=== PATIENT | female | born 1990 ===

== ENCOUNTER 2025-01-08 08:28 | Outpatient (AMB) | payer OTHER, SELFPAY ==
--- OUTSIDE RECORDS SUMMARY | 2025-01-08 08:32 | XMS_ITS | Clinical Summary ---
Author Organization [facility] Address [address] [place] [address] Phone Care Team Providers Care Nut Roaster Name Role Phone Vivek Sams MD Primary Care Provider [phone] Allergies No known active allergies Medications ALBUTEROL SULFATE INHL Inhale 2 Puffs into the lungs as needed. Active azelastine (ASTELIN) 137 mcg (0.1 %) nasal spray 2 Sprays by Each Nare route 2 times daily. Use in each nostril as directed Active etonogestrel-elut ing contraceptive device (Nexplanon) 68 mg implant subdermal implant Inject 68 mg into the skin Once. 4 Active fluticasone propionate (FLONASE) 50 mcg/actuation nasal spray 2 Sprays by Each Nare route daily for 360 days. 3 Active loratadine (CLARITIN) 10 mg tablet Take 1 tablet (10 mg total) by mouth 1 (one) time each day. 3 Active SUMAtriptan (IMITREX) 50 mg tablet Take 1 tablet (50 mg total) by mouth 1 (one) time each day if needed for migraine. May repeat dose once in 2 hours if no relief. Do not exceed 2 doses in 24 hours. 9 tablet 1 5 08/10/19 26 Active Symbicort 160-4.5 mcg/actuation inhaler Inhale 2 puffs by mouth 2 (two) times a day. 5 Active phentermine 30 mg capsule Take 1 capsule (30 mg total) by mouth 1 (one) time each day before breakfast. Max Daily Amount: 30 mg 30 each 5 01/12/20 25 Active phentermine 30 mg capsule Take 1 capsule (30 mg total) by mouth 1 (one) time each day before breakfast. Max Daily Amount: 30 mg 30 each 5 12/13/19 25 Discontin ued(Reord er) Active Problems Problem Noted Date Diagnosed Date Morbid obesity with BMI of 4 0.0-44.9, adult ([facility] V24, [facility] V28) 05/18/[address] 03/17/2024 Overview (05/18/2024): Inserted 02/2024 Flat feet, bilateral 03/20/2020 Encounters Date Type Department Care Team Description 12/12/2024 9:00 AM EDT [facility] [phone] Vivek Sams MD Class 3 severe obesity due to excess calories without serious comorbidity with body mass index (BMI) of 45.0 to 49.9 in adult ([facility] V24, [facility] V28) (Primary Dx) 11/03/2024 8:45 AM EDT Office Visit Internal Medicine - [address] [phone] Vivek Sams MD Encounter for weight management (Primary Dx); Morbid obesity with BMI of 40.0-44.9, adult ([facility] V24, [facility] V28) 10/11/2024 Telephone Pediatrics - [address] [phone] Vivek Sams MD Forms/questionnaires (Physician Statement) from Last 3 Months Immunizations Name Administration Dates Next Due DTP 10/11/1995, 4,11/09/1993,1990 [id number] (Pentacel) 2mo to less than 5yo 01/09/1994,11/09/1993,1990 Hepatitis B Pediatric (Enger ix B; Recombivax HB) to less than 20 yo 02/20/2000,07/25/1999,06/24/1999 MMR, measles mumps and rubel la Live (Priorix; M-M-R II) 12mo and older 10/11/1995,09/10/1991 OPV 10/11/1995, 4,11/09/1993,1990 Pneumococcal conjugate 20 va lent (Prevnar 20, PCV 20) 2mo and older 08/15/2024 Td Tetanus diptheria (Tdvax) 7yo and older 04/07/2001 Tdap Tetanus diptheria acell ular pertussis (Boostrix; Adacel) 7yo and older 02/20/2016,12/08/2011 Varicella live (Varivax) 12m o and older 02/09/1991 Surgical History Surgery Date Site/Laterality Comments OTHER SURGICAL HISTORY 2021 Bilateral PROCEDURE: [place] DECOMPRESSION PLANTAR DIGITAL NERVE; COMMENT: 10/03/2021 (Left); 01/22/2022 (right) Medical History Medical History Date Comments BRCA negative 08/2020 DX:BRCA negative Flat feet, bilateral 03/20/2020 DX:Flat fee t, bilateral Family History Medical History Relation Name Comments No Known Problems Daughter Diabetes Father Heart failure Father Other: gout Father Breast cancer Paternal Grandfather Asthma Son 1 No Known Problems Son 2 Lung cancer Uncle paternal Relation Name Status Comments Daughter Alive Father Paternal Grandfather Son 1 Son 2 Alive Uncle Social History Tobacco Use Types Packs/Day Years Used Date Smoking Tobacco: Never Smokeless Tobacco: Never Tobacco Cessation:Counseling Given: Not Answered Alcohol Use Standard Drinks/Week Comments No 0 (1 standard drink = 0.6 oz pur e alcohol) Housing Instability Answer Date Recorde d Are you worried that in the next 2 months you may not have stable housing? Yes 08/11/2024 Food Access & Nutrition Answer Date Rec orded Do you have access to a vari ety of food including fruits and vegetables? Yes 08/11/2024 Access to Healthcare Answer Date Record ed Within the last 3 months, ho w many times did you visit the emergency department for your medical care? 0 08/11/2024 Health Literacy Answer Date Recorded How often do you need to hav e someone help you when you read instructions, pamphlets, or other written material from your doctor or pharmacy? Never 08/11/2024 Caregiver: How often do you need to have someone help you when you read instructions, pamphlets, or other written material from your doctor or pharmacy? Not on file 08/11/2024 Financial Risk Answer Date Recorded How hard is it for you to pa y for the very basics like food, housing, medical care, and air conditioning / heating? Somewhat hard 08/11/2024 Transportation Answer Date Recorded Has the lack of transportati on kept you from meetings, work, or from getting things needed for daily living? No Has the lack of transportati on kept you from medical appointments or from getting medications? No 08/11/2024 Social Isolation Answer Date Recorded How often do you feel lonely or isolated from th ose around you? Rarely 08/11/2024 Food Risk Answer Date Recorded Within the past 12 months we worried whether our food would run out before we got money to buy more. Never true 08/11/2024 Within the past 12 months th e food we bought just didn't last and we didn't have money to get more. Never true 08/11/2024 Dependent Care Answer Date Recorded Do you need help finding or paying for care for your loved ones. For example, child protective services social worker or elderly care for an older adult? No 08/11/2024 Education Answer Date Recorded Do you think completing more education or training, like finishing a GED, going to college, or learning a trade, would be helpful for you? Patient declined 08/11/2024 Employment and Income Answer Date Recor ded During the last four weeks, have you been actively looking for work? No 08/11/2024 Living Situation Answer Date Recorded What is your living situation? 0 08/11/2024 Comments No Sex and Gender Information Value Date Recorded Sex Assigned at Female 07/06/2024 1:24 PM EST Legal Sex Female 5:00 AM EST Gender Identity Female 07/06/2024 1:24 PM EST Sexual Orientation Not on file Obstetrics History Last Filed Vital Signs Vital Sign Reading Time Taken Comments Blood Pressure 130/81 12/12/2024 9:16 AM EDT Pulse 88 12/12/2024 9:16 AM EDT Temperature - - Respiratory Rate - - Oxygen Saturation - - Inhaled Oxygen Concentration - - Weight 123 kg (270 lb 14.4 oz) 12/12/2024 9:16 A M EDT Height 165.1 cm (5' 5 ) 12/12/2024 9:16 AM EDT Body Mass Index 45.08 12/12/2024 9:16 AM EDT Plan of Treatment Upcoming Encounters Date Type Department Care Team (Late st Contact Info) Description 01/10/2025 8:30 AM EDT Office Visit Internal Medicine - [facility] [address] [place] [phone] Vivek Sams MD [address] [place] [address] Health Maintenance Due Date Last Done Comments Depression Screening 08/11/2025 08/11/2024 Social Influencers of Health Screening 08/11/2025 08/11/2024 DTaP,Tdap,and Td Vaccines (8 - Td or Tdap) 02/19/2026 02/20/2016, 12/08/2011, 04/07/2001, Additional history exists Cervical Cancer Screening: HPV 02/24/2029 02/25/2024 Cholesterol Screening (Lipid Panel) 08/15/2029 08/15/2024, 12/31/2021 Varicella Vaccines Aged Out 02/09/1991 No longer eligible based on patient's age to complete this topic HIB Vaccines Completed 01/09/1994, 10/26, 1990 IPV Vaccines Completed 10/11/1995, 12/26, 01/09/1994, Additional history exists MMR Vaccines Completed 10/11/1995, 09/10/1991 Hepatitis B Vaccines Completed 02/20/2000, 07/25/1999, 06/24/1999 COVID-19 Vaccine Discontinued 09/20/2020, 08/29/2020 HIV Screening Completed 08/15/2024, 01/28, 08/20/2015 Hepatitis C Screening Completed 08/15/2024, 024 Pneumococcal Vaccine: Pediatrics (0 to 5 Years) and At-Risk Patients (6 to 49 Years) Completed 08/15/2024 HPV Vaccines Aged Out No longer eligi ble based on patient's age to complete this topic Hepatitis A Vaccines Aged Out No long er eligible based on patient's age to complete this topic Influenza Vaccine Discontinued Meningococcal ACWY Vaccine Aged Out N o longer eligible based on patient's age to complete this topic Meningococcal B Vaccine Aged Out No l onger eligible based on patient's age to complete this topic RSV Immunization Patients Under 20 months Aged Out No longer eligible based on patient's age to complete this topic Procedures Procedure Name Priority Date/Time Associated Diagnosis Comments HEPATITIS PANEL, ACUTE WITH REFLEX TO CONFIRMATION Routine 08/15/2024 1:13 PM EST Screen for STD (sexually transmitted disease) HIV 1, 2 ANTIBODY, P24 ANTIGEN WITH REFLEX TO DIFFERENTIATION Routine 08/15/2024 1:13 PM EST Screen for STD (sexually transmitted disease) LIPID PANEL WITH REFLEX TO DIRECT LDL Routine 08/15/2024 1:13 PM EST Morbid obesity with BMI of 40.0-44.9, adult (CMS/HCC V24, CMS/HCC V28) HM HPV Routine 02/25/2024 from Last 3 Months or Most Recently Relevant to Health Maintenance Results * HIV 1,2 antibody, p24 antigen with reflex to differentiation (08/15/2024 1:13 PM EST) HIV Combo AB/AG Negative Negative LAB CHEMISTRY METHOD 08/15/2024 5:57 PM EST [facility] Blood Venous blood specimen / Unknown Venipuncture / Unknown 08/15/2024 1:13 PM EST 08/15/2024 1:13 PM EST Narrative [facility] - 08/15/2024 5:57 PM EST This assay is a 4th generation assay allowing for earlier detection of HIV infection by detecting the presence of the HIV-1 p24 antigen as well as the traditional antibodies to HIV type 1 (including group O) and type 2. Use of a 4th generation assay is the current CDC recommendation for HIV screening. Vivek Sams MD LAB BLOOD ORDERABLES Final Resu lt [facility] [address] [place] [address], [place] [phone] * Lipid panel with reflex to direct LDL (08/15/2024 1:13 PM EST) Cholesterol 149 0 - 200 mg/dL LAB CHEMISTRY METHOD 08/15/2024 5:09 PM EST [facility] Triglycerides 110 0 - 150 mg/dL LAB CHEMISTRY METHOD 08/15/2024 5:09 PM EST [facility] HDL 41 >=40 mg/dL LAB CHEMISTRY METHOD 08/15/2024 5:09 PM [facility] LDL Calculated 86 0 - 100 mg/dL LAB CHEMISTRY METHOD 08/15/2024 5:09 PM [facility] VLDL Cholesterol Bull 22 mg/dL LAB CHEMISTRY METHOD 08/15/2024 5:09 PM [facility] Non HDL Chol. (LDL+VLDL) 108 <145 mg/dL LAB CHEMISTRY METHOD 08/15/2024 5:09 PM [facility] Chol/HDL Ratio 3.6 0.0 - 4.4 LAB CHEMISTRY METHOD 08/15/2024 5:09 PM [facility] Blood Venous blood specimen / Unknown Venipuncture / Unknown 08/15/2024 1:13 PM EST 08/15/2024 1:13 PM EST Vivek Sams MD LAB BLOOD ORDERABLES Final Resu lt Performing Organization Address [facility]/ZIP Co de Phone Number [facility] [address] [place] [address], [place] [phone] * Hepatitis panel, acute with reflex to confirmation (08/15/2024 1:13 PM EST) Hepatitis B Surface Ag Negative Negative LAB CHEMISTRY METHOD 08/15/2024 6:40 PM EST [facility] Hepatitis A Antibody IgM Negative Negative LAB CHEMISTRY METHOD 08/15/2024 6:40 PM EST [facility] Hep B Core IgM Negative Negative LAB CHEMISTRY METHOD 08/15/2024 6:40 PM EST [facility] Hepatitis C Antibody Negative Negative LAB CHEMISTRY METHOD 08/15/2024 6:40 PM EST [facility] Blood Venous blood specimen / Unknown Venipuncture / Unknown 08/15/2024 1:13 PM EST 08/15/2024 1:13 PM EST Vivek Sams MD LAB BLOOD ORDERABLES Final Resu lt [facility] [address] [place] [address], * Cervical Cancer Screening: HPV (02/25/2024) Pathologist [facility] Cervical Cancer Screening: HPV negative, abstracted Historical Provider HEALTH MAINTENANCE Final Result from Last 3 Months or Most Recently Relevant to Health Maintenance Insurance [facility] [employer] Care Teams Nut Roaster Relationship Specialty Start Date End Date Vivek Sams MD [address] [place] [phone] PCP - General 08/06/22
--- NOTE | 2025-01-08 09:13 | MHC.OFFVISWM ---
VS Expanded 01/08/25 09:22 Height 5 ft 5 in Weight 262 lb 7 oz BMI 43.7 Body Fat % 42.9 Body Fat Mass 112.6 Fat Free Mass 150 Visceral Fat Rating 12 Body Water Mass 107.4 Basal Metabolic Rate/Score 2,118 Intake Visit Reasons: [employer] BMI 43.7 Allergies No Known Allergies Allergy (Verified 01/08/25 09:13) Medication List - Last Reconciled 01/08/25 by Papito Hernandez MD albuterol sulfate 90 mcg/actuation (Ventolin HFA) 2 puffs inhalation Q6H PRN budesonide-formoterol 160-4.5 mcg/actuation (Symbicort) 2 puffs inhalation BID clotrimazole 2% (Clotrimazole-3) 2 appful vaginal BEDTIME levocetirizine 5 mg PO QPM PRN phentermine 30 mg PO DAILY sumatriptan succinate 50 mg PO Q2-4H PRN HPI HPI [employer] BMI 43.7: Details: Start time: 9.06am, End time: 10.06am I spent 50 minutes speaking with the patient on the phone plus an additional 10 minutes reviewing and updating records for a total of 60 minutes HPI Comments Details: Previous weight loss efforts: has been on Phentermine max dose of 37.5mg/d for 3 months without any weight loss and side effects of nausea and dizziness Wakes up: 5.45am, Sleeps: 10pm Breakfast: skips Lunch: 2pm (watermelon, berries, and salad with chicken), or premade Premier protein shake Dinner: 7.30pm (chicken with vegetable, rice/potatoes) Snacks: none Exercise: none Beverages: Coffee/Tea: none, soda: rarely, juice: rarely, ETOH: 3-4/year [facility] Medical History (Updated 01/08/25 @ 09:18 by Papito Hernandez MD) Migraines Asthma Morbid obesity Surgical History (Updated 01/08/25 @ 09:18 by Papito Hernandez MD) S/P foot surgery, right S/P foot surgery, left Family History (Updated 12/15/24 @ 09:28 by Margie Faye CMA) Mother No problems noted. Father Heart failure Gout Son No problems noted. Son Asthma Chronic headaches Daughter ADHD Epilepsy Social History (Updated 12/15/24 @ 09:28 by Margie Faye CMA) Alcohol intake: current Alcohol intake frequency: holidays/special occasions only Patient Tobacco Use Status: Never used Tobacco Telehealth Telehealth Telehealth Platform: Telephone Location of provider rendering services: practice address Location of patient: address on file Patient Identification confirmed using: Name, : Yes Telehealth method: voice only Patient verbally consented to treatment: Yes Patient verbally consented to billing insurance company: Yes Patient informed of any privacy concerns related to visit: Yes Minutes spent on Phone/Video with Pt.: 60 Assessment & Plan Assessment & Plan (1) Morbid obesity: Code(s): E66.01 - Morbid (severe) obesity due to excess calories Category: Medical Plan: 1. Plan for lap sleeve gastrectomy. If diaphragmatic or ventral hernias are present at time of surgery, these will be repaired laparoscopically as well. I emphasized the importance of close follow-up, adherence to instructions and good communication. The surgery does not replace the need to change your lifestlyle which is the cause of the obesity problem. The surgery provides the motivation to try again to change your lifestyle, it reduces the appetite and make the transition to a better lifestyle easier and doubles the amount of weight you would lose compared to doing the lifestyle change without the surgery. You will need to be on a liquid diet with protein shakes for 2 weeks before surgery to maximize weight loss and boost your nutritional status to recover better from surgery and also for the first two weeks after surgery to let the stomach heal before we introduce other foods. After the first 2 weeks we will introduce protein bars and soft foods like scrambled eggs, cottage cheese and yogurt and after the 6th week will introduce meat, fish and cooked vegetables in small amounts. Over time you should be able to eat everything in small amounts. Side effects like nausea, vomiting, heartburn or abdominal pain are not common in the practice unless you are not following in the practice. This operation requires lifetime commitment to following in our practice and communication with me. You will much less weight and experience side effects if you don?t communicate or not following in the practice. Complications are rare and in our practice is about 1/10 of the national average. However, you can develop bleeding that may require transfusion (hasn?t happened for year in the practice), you may from complications (we did not have any deaths in the practice) and infections. Infections are usually a result of breakdown in communication or not understanding or following directions correctly. They are difficult to treat, they can happen during the first 6 weeks, they may require to be in the hospital for weeks or even months, not being able to eat by mouth and you may have drains and surgeries to try and correct the issue. Other risks and complications include possible conversion to an open procedure, leaks, small bowel obstruction, blood clots, cardiac, or pulmonary complications, as shelter complications such as ulcers, insufficient weight loss and vitamin deficiencies. 2. Nutritional counseling. Start with 1 premade Premier protein shake (ONLY 8oz and NOT the whole bottle) at 7am-9am, 2 protein bars (Fit Crunch protein bars, buy at [employer] or [employer]) at 10am-12pm and 1pm-3pm, one more 1 premade Premier protein shake (ONLY 8oz and NOT the whole bottle) at 4pm-6pm and dinner at 7pm (8 forks of protein and 8 forks of salad/vegetables) and HALF Fit Crunch protein bar, if you feel hungry, from 9pm-10pm. So you do 2 protein shakes, 2-2.5 protein bars and one meal per day. Meal to include lean meat (beef, fish, pork, turkey, chicken), or north korean yogurt, or egg whites, or beans with a salad with olive oil and fruits (berries, pears, apples, kiwi). Avoid salt, breads, potatoes, rice, pasta, desserts. 3. Each shake would be drunk slowly, like coffee in a period of 2 hours. 4. Cut each bar in 4 pieces and eat each piece in 30min to make each bar last 2 hours. 5. I emphasized the importance of measuring accurately the food portion and measure it when serving the food in plate 6. The meal portions include 8 full-size forks of meat and 8 full-size forks of salad. You always eat the meat portion but you can replace up to 4 forks for salad/vegetables with rice, potatoes or pasta, or a fruit if you like. The less you do it the better weight loss will be. 7. One full-size fork is what it can be scooped on the fork without falling aside and not what can be bit with the fork. Use regular forks like those you find in a typical restaurant. 8. Please buy the body composition scale we discussed and send me weight measurements as soon as possible and then once a week. Always include your diet and exercise plan. 9. Start stationary bike at a resistance level of 4.0 Increase level by 1.0 every 3 min to a max level of 10.0. Stay at this level for 3 min and then return to level 4.0 and repeat same steps until 300 calories are burned. Velocity target is 12mph and heart rate is 145 bpm. Goal is to burn 2000 calories per week on exercise 10. The best choice would be to purchase a stationary bike at home that can track calories. Let me know if you do so I can give you an exercise plan. 11. It is important of avoiding and for at least 18 months postoperatively and has been discussed at the infosession. 12. Goal is to lose at least 1.5-2lbs per week 13. Goal to lose 10% of your weight before surgery, which is about 26lbs. Ultimate weight goal: 236lbs before surgery 14. Please follow the diet plan exactly without any change. If you don't like something about the plan or you feel hungry you need to communicate with me so I can help you revise the plan. You should not change the plan yourself 15. To be scheduled for EGD to assess the stomach's anatomy. The possibility of biopsies was discussed. Patient needs to avoid use of NSAIDs and aspirin for 1 week prior to EGD. You must be on liquids only the day before your endoscopy. Risks of perforation and bleeding was discussed with the patient. This will be an outpatient procedure with IV sedation. 16. As of tomorrow, please send me a picture of your meal plate after you measure it, but before you consume it. 17. Start the Zepbound when you get your body composition scale once a week. Use a calorie-counting karan to track your daily calories to create a calorie deficit with a target of consuming 3682-5934 calories per day. We discussed the potential side effects of Zepbound such as nausea, vomiting, abdominal pain, diarrhea and constipation and you will need to contact me if any of these symptoms occur or for any other new symptom you may experience Orders: Orders Hemoglobin A1c Today E66.01 - Morbid (severe) obesity due to excess calories, J45.909 - Unspecified asthma, uncomplicated Complete Blood Count Auto Diff Today E66.01 - Morbid (severe) obesity due to excess calories, J45.909 - Unspecified asthma, uncomplicated Lipid Panel Today E66.01 - Morbid (severe) obesity due to excess calories, J45.909 - Unspecified asthma, uncomplicated IRON PROFILE Today E66.01 - Morbid (severe) obesity due to excess calories, J45.909 - Unspecified asthma, uncomplicated Zinc Today E66.01 - Morbid (severe) obesity due to excess calories, J45.909 - Unspecified asthma, uncomplicated C Reactive Protein Today E66.01 - Morbid (severe) obesity due to excess calories, J45.909 - Unspecified asthma, uncomplicated Vitamin B1 Today E66.01 - Morbid (severe) obesity due to excess calories, J45.909 - Unspecified asthma, uncomplicated Vitamin A Today E66.01 - Morbid (severe) obesity due to excess calories, J45.909 - Unspecified asthma, uncomplicated TSH reflex Free T4 Today E66.01 - Morbid (severe) obesity due to excess calories, J45.909 - Unspecified asthma, uncomplicated Ferritin Today E66.01 - Morbid (severe) obesity due to excess calories, J45.909 - Unspecified asthma, uncomplicated Vitamin D 25-OH Total Today E66.01 - Morbid (severe) obesity due to excess calories, J45.909 - Unspecified asthma, uncomplicated XR chest 2V Today E66.01 - Morbid (severe) obesity due to excess calories, J45.909 - Unspecified asthma, uncomplicated Insulin Today E66.01 - Morbid (severe) obesity due to excess calories, J45.909 - Unspecified asthma, uncomplicated H Pylori Breath Test Today E66.01 - Morbid (severe) obesity due to excess calories, J45.909 - Unspecified asthma, uncomplicated Comprehensive Met. Panel Today E66.01 - Morbid (severe) obesity due to excess calories, J45.909 - Unspecified asthma, uncomplicated Vitamin B12 and Folate Today E66.01 - Morbid (severe) obesity due to excess calories, J45.909 - Unspecified asthma, uncomplicated US abdomen comp w elastography Today E66.01 - Morbid (severe) obesity due to excess calories, J45.909 - Unspecified asthma, uncomplicated ECG 12 lead EKG Today E66.01 - Morbid (severe) obesity due to excess calories, J45.909 - Unspecified asthma, uncomplicated FL upper GI w air Today E66.01 - Morbid (severe) obesity due to excess calories, J45.909 - Unspecified asthma, uncomplicated Referrals Nutrition/Dietitian Referral E66.01 - Morbid (severe) obesity due to excess calories, J45.909 - Unspecified asthma, uncomplicated Behavioral Health Referral E66.01 - Morbid (severe) obesity due to excess calories, J45.909 - Unspecified asthma, uncomplicated Medications: New tirzepatide (weight loss) (Zepbound) for 4 weeks 2.5 mg (0.5 mL) subcut QWEEK 2 mL 0RF E66.01 - Morbid (severe) obesity due to excess calories
[2025-01-08 09:22] VITALS: BMI 43.7
== END 2025-01-08 10:07 | disposition home or self-care (01) ==
LOC: HO.HBS 08:28
PROVIDERS: PCP Internal Medicine; Visit Provider Surgery
DX: E66.01 Morbid (severe) obesity due to excess calories (principal); Z68.41 Body mass index [BMI] 40.0-44.9, adult
CPT/HCPCS: 98011

== ENCOUNTER 2025-01-12 08:13 | Outpatient (REF) | payer OTHER, SELFPAY ==
--- OUTSIDE RECORDS SUMMARY | 2025-01-10 08:30 | XMS_ITS | Encounter Summary ---
Author Organization [facility] Address [address] [place] [address] Care Team Providers Care Photograph Printer Name Role Phone Vivek Sams MD Primary Care Provider [phone] Reason for Visit * Reason Comments Wt management Encounter Details Date Type Department Care Team (Late st Contact Info) Description 01/10/2025 8:30 AM EDT Office Visit [facility] Medicine - [facility] [address] [place] [address] Vivek Sams MD [address] [place] [address] Encounter for weight management (Primary Dx); Class 3 severe obesity due to excess calories without serious comorbidity with body mass index (BMI) of 40.0 to 44.9 in adult (CMS/HCC V24, CMS/HCC V28) Social History Tobacco Use Types Packs/Day Years [...] care for your loved ones. For example, summer child caregiver or elderly care for an older adult? [...] PM EST Sexual Orientation Not on file documented as of this encounter Last Filed Vital Signs Vital Sign Reading Time Taken Comments Blood Pressure 114/88 01/10/2025 8:08 AM EDT Pulse 83 01/10/2025 8:08 AM EDT Temperature - - Respiratory Rate - - Oxygen Saturation - - Inhaled Oxygen Concentration - - Weight 116 kg (254 lb 12.8 oz) 01/10/2025 8:08 A M EDT Height 165.1 cm (5' 5 ) 01/10/2025 8:08 AM EDT Body Mass Index 42.4 01/10/2025 8:08 AM EDT documented in this encounter Ordered Prescriptions Prescription Sig Dispense Quantity Refills Last Filled Start Date End Date phentermine 30 mg capsule Take 1 capsule (30 mg total) by mouth 1 (one) time each day before breakfast. Max Daily Amount: 30 mg 30 each 01/10/2025 documented in this encounter Progress Notes * Vivek Sams MD - 01/10/2025 8:30 AM EDT CHIEF COMPLAINT: Wt management IDENTIFIER: Franklyn Mack is a 34 y.o. old female who comes alone. I have obtained verbal consent from Franklyn Mack prior to the recording. I have advised Franklyn Mack that she may refuse the recording and require the recording to be turned off at any time during this encounter. History of Present Illness The patient presents for a 4-week follow-up on weight management. She has been on phentermine 30 mg daily for 3 months, well-tolerated. Significant weight loss from 270 to 254 pounds. Recently consulted a weight environmental management specialist, awaiting appointment scheduling. Reports mild dizziness, dry mouth, and sleep disturbances, including a surge of energy around 7:30-8:00 PM despite taking medication at 6:00 AM. Seeks medication refill. ROS: GENERAL: No malaise, significant weight loss or fever HEENT: No changes in hearing or vision, nose bleeds or other nasal problems RESPIRATORY: No cough, wheezing or shortness of breath CARDIOVASCULAR: No chest pain, leg swelling or palpitations GI: No abdominal discomfort, blood in stools or black stools NECK: No lumps, goiter, pain or significant neck swelling : No dysuria, frequency or incontinence MUSCULOSKELETAL: No joint pain or swelling, back pain, or muscle pain. SKIN: No lesions, rash or itching NEURO: No persistent headache, syncope, seizures, weakness or numbness PAST MEDICAL HISTORY: Patient Active Problem List Diagnosis Date Noted Morbid obesity with BMI of 40.0-44.9, adult ([facility] V24, [facility] V28) 05/18/[address] 03/17/2024 Flat feet, bilateral 03/20/2020 ACTIVE MEDICATIONS: Outpatient Medications Marked as Taking for the 01/10/25 encounter (Office Visit) with Vivek Sams MD Medication Sig Dispense Refill ALBUTEROL SULFATE INHL Inhale 2 Puffs into the lungs as needed. azelastine (ASTELIN) 137 mcg (0.1 %) nasal spray 2 Sprays by Each Nare route 2 times daily. Use in each nostril as directed etonogestrel-eluting contraceptive device (Nexplanon) 68 mg implant subdermal implant Inject 68 mg into the skin Once. fluticasone propionate (FLONASE) 50 mcg/actuation nasal spray 2 Sprays by Each Nare route daily [id number] days. loratadine (CLARITIN) 10 mg tablet Take 1 tablet (10 mg total) by mouth 1 (one) time each day. phentermine 30 mg capsule Take 1 capsule (30 mg total) by mouth 1 (one) time each day before breakfast. Max Daily Amount: 30 mg 30 each 0 SUMAtriptan (IMITREX) 50 mg tablet Take 1 tablet (50 mg total) by mouth 1 (one) time each day if needed for migraine. May repeat dose once in 2 hours if no relief. Do not exceed 2 doses in 24 hours. 9 tablet 1 Symbicort 160-4.5 mcg/actuation inhaler Inhale 2 puffs by mouth 2 (two) times a day. [DISCONTINUED] phentermine 30 mg capsule Take 1 capsule (30 mg total) by mouth 1 (one) time each day before breakfast. Max Daily Amount: 30 mg 30 each 0 ALLERGIES: Patient has no known allergies. PHYSICAL EXAM: Visit Vitals BP 114/88 Pulse 83 Ht 1.651 m (65 ) Wt 116 kg (254 lb 12.8 oz) BMI 42.40 kg/m?? OB Status Implant Smoking Status Never BSA 2.2 m?? APPEARNCE: well appearing, awake, alert, in no acute distress EYES: PERRL, conjunctiva and sclera normal NOSE/SINUS: negative MOUTH/THROAT: no erythema or exudates NECK: Supple without any adenopathy HEART: regular rate, regular rhythm and no murmur RESPIRATORY: clear lungs bilaterally EXTREMITIES: No edema and Normal pulses bilaterally. NEURO: Awake, alert and oriented x 3, Normal gait and No involuntary motions. SKIN: No rashes or lesions. IMPRESSION: 1. Encounter for weight management 2. Class 3 severe obesity due to excess calories without serious comorbidity with body mass index (BMI) of 40.0 to 44.9 in adult ([facility] V24, [facility] V28) PLAN: Assessment & Plan 1. Weight management. - Significant weight loss from 270 to 254 pounds over the past month. - Physical exam: stable blood pressure; side effects: dizziness, dry mouth, trouble sleeping. - Continue phentermine 30 mg daily for 3 months, pending weight management consult. - Prescription for phentermine 30 mg sent to pharmacy; follow-up in 4 weeks. ADDITIONAL ORDERS: None Today's documentation was made using voice recognition software.This note may contain grammatical errors secondary to this software. MD Vivek Alonzo MD on 01/10/2025 at 8:32 AM EDT documented in this encounter Plan of Treatment Upcoming Encounters Date Type Department Care Team (Late st Contact Info) Description 02/15/2025 8:45 AM EDT [facility] [address] [place] [address] Vivek Sams MD [address] [place] [address] documented as of this encounter Visit Diagnoses Diagnosis Encounter for weight management- Primary Class 3 severe obesity due to excess calories without serious comorbidity with body mass index (BMI) of 40.0 to 44.9 in adult ([facility] V24, [facility] V28) documented in this encounter Discontinued Medications Medication Sig Discontinue Reason Start Date End Da te phentermine 30 mg capsule Take 1 capsule (30 mg total) by mouth 1 (one) time each day before breakfast. Max Daily Amount: 30 mg Reorder 12/12/2024 01/10/2025 documented as of this encounter Additional Health Concerns Assessment Noted Time PHQ-9 Depression Total Score: 0 08/11/19 25 6:57 PM EST documented as of this encounter Care Teams Photograph Printer Relationship Specialty Start Date End Date Vivek Sams MD [address] [place] [address] PCP - General 08/06/22 documented as of this encounter
--- NOTE | ~2025-01-12 | XR_ITS ---
EXAMINATION: XR CHEST 2 VIEWS HISTORY: E66.01 - Morbid (severe) obesity due to excess calories COMPARISON: There are no prior studies available for comparison. FINDINGS: PA and lateral views of the chest are submitted. The lungs are expanded and clear. There is no pleural effusion, pneumothorax, or pulmonary vascular congestion. The heart is normal in size. The bones are intact. XR/XR chest 2V IMPRESSION: Normal examination of the chest. Electronically signed by: Jaden Kathleen MD 01/12/2025 08:57 AM EDT
--- OUTSIDE RECORDS SUMMARY | 2025-01-12 08:19 | XMS_ITS | Data Portability ---
Author Organization [facility], [address] Address [address] [place] [address] Assessment No assessment recorded. Plan of Treatment Reminders Order Date Submit Date Provider Last Modified By Organization Details Last Modified Time Details Appointments None record ed. Lab None record ed. Referral None record ed. Procedures None record ed. Surgeries None record ed. Imaging None record ed. Medication Orders None record ed. Patient TargetsNo targets recorded. Patient InstructionsNo instructions recorded. Reason for Referral None Reported. Procedures Surgical History Date Name Laterality Status Provider Name and Address Organization Details Recorded Time 3 OC-UDS Send Out Template NON DOT completed SHAMA TIFFANIE GARCIA [facility] 02/28/2023 16:59:59 Imaging Results None recorded. Procedure Notes None recorded. Medical Equipment None Reported. Medications Name Sig Start Date Stop Date Status Note LastModified by Organization Details LastModified Time aspirin 325 mg tablet TAKE 1 TABLET BY MOUTH DAILY FOR 60 DAYS. active Not Available Not Available No t Available meloxicam 15 mg tablet TAKE 1 TABLET BY MOUTH DAILY FOR 60 DAYS. active Not Available Not Available No t Available epinephrine 0.3 mg/0.3 mL injection, auto-injecto r INJECT 1 PEN INTRAMUSCUL TANYA NEEDED FOR ALLERGIC REACTION active Not Available Not Available No t Available fluticasone propionate 50 mcg/actuatio n nasal spray,suspen imtiaz SPRAY 2 SPRAYS IN EACH NOSTRIL EVERY DAY active Not Available Not Available No t Available loratadine 10 mg tablet TAKE 1 TABLET BY MOUTH EVERY DAY active Not Available Not Available No t Available Vitals None Recorded Social History None recorded. Functional Status None recorded. Mental Status None recorded. Family History Nothing Reported. Medical History No medical history recorded. Gynecological HistoryNo gynecological history recorded. Obstetrics History GPAL:G 0 P 0 0 0 0 Past Encounters Encounter ID Performer Location Encounter Start Date Encounter Closed Date Diagnosis/Indication Diagnosis SNOMED-CT Code Diagnosis ICD10 Code Diagnosis Note [id number] [address] [place] [address] 10/09/2018 08:23:46 10/09/2018 09:53:29 [id number] [address] [place] [address] 01/03/2021 09:10:48 01/03/2021 10:09:21 [id number] [place] [id number] [facility] [address] [place] [address] 02/28/2023 14:43:52 02/28/2023 15:44:10 History and physical examination, occupation 559139695 Z02.1 Health Concerns Section Related Observation LastModified by Organization Detai ls LastModified Time None Recorded Concern Status LastModified by Organization Details LastModified Time None Recorded Advance Directives Directive None Recorded Payers Insurance Date Sequence Insurance Name Policy Number Policy Sawant Covered Member ID Sawant Member ID Guarantor Name 02/27/2023 1 [facility] [employer] - HEALTH NET PLAN (MEDICAID HMO) DOMINGA Mack [id number] Franklyn Mack 02/28/2023 [employer] Franklyn Mack OBGyn Episode No OBEpisode recorded.
--- NOTE | 2025-01-12 08:21 | ECG_ITS ---
Test Reason : mor obs Blood Pressure : */* mmHG Vent. Rate : 72 BPM Atrial Rate : 72 BPM P-R Int : 124 ms QRS Dur : 92 ms QT Int : 368 ms P-R-T Axes : 25 29 50 degrees QTcB Int : 402 ms Normal sinus rhythm Normal ECG No previous ECGs available Referred By: Papito Hernandez Electronically Signed By: MICHELLE OVERTON
[2025-01-12 08:48] LABS: MANUAL DIFF FLAG NO
[2025-01-12 09:14] LABS: Hematocrit 37.3 % (37.0-47.0); Hemoglobin 12.9 g/dl (12.0-16.0); Imm Gran Abs Auto 0.02 X10*3/uL (0.00-0.03); Imm Gran Pct Auto 0.3 % (0.0-0.4); Lymphocytes Absolute Auto 2.1 X10*3/uL (1.2-4.9); Mean Corpuscular HGB Conc 34.6 g/dl (31.0-35.0); Mean Corpuscular Hemoglobin 24.9 pg (27.0-33.0); Mean Corpuscular Volume 72.0 fL (80.0-98.0); NRBC Abs Auto 0.000 X10*3/uL (0.0-0.012); NRBC Pct Auto 0.0 /100WBC (0.0-0.2); Platelet Count 329 X10*3/uL (160-400); Red Blood Count 5.18 X10*6/uL (4.20-5.50); White Blood Count 7.3 X10*3/uL (4.8-10.8)
[2025-01-12 09:26] LABS: Hemoglobin A1C 110.2021 umol/L; Total Hemoglobin (HGBA1C) 3387.8360 umol/L
[2025-01-12 09:48] LABS: Alanine Aminotransferase 22 U/L (0-31); Albumin Level 4.4 g/dL (3.5-5.0); Alkaline Phosphatase 80 U/L (39-117); Anion Gap 11 (12-20); Aspartate Amino Transferase 22 U/L (5-31); Blood Urea Nitrogen 14 mg/dL (9-16); Calcium 9.2 mg/dL (8.4-10.2); Carbon Dioxide 26 mmol/L (22-29); Chloride 108 mmol/L (96-108); Cholesterol 149 mg/dL (<200); Estimated Glomerular Filt Rate > 60; HDL Cholesterol 37 mg/dL (>40); Iron 76 mcg/dL (30-160); Percent Iron Saturation 30 % (15-50); Potassium 4.1 mmol/L (3.3-5.1); Sodium 141 mmol/L (135-145); Total Iron Binding Capacity 255 mcg/dL (228-428); Total Protein 7.8 g/dL (6.5-8.0); Triglycerides 65 mg/dL (<150); Unsaturated Iron Binding 179 ug/dL
[2025-01-12 10:09] LABS: Ferritin 27 ng/mL (10-122); Folate 11.4 ng/mL (> or = 4.0); Vitamin B12 677 pg/mL (200-900)
== END 2025-01-12 08:14 | disposition home or self-care (01) ==
LOC: HO.XRAY 08:13
PROVIDERS: PCP Internal Medicine Hematology & Oncology; Visit Provider Surgery
DX: E66.01 Morbid (severe) obesity due to excess calories (principal); J45.909 Unspecified asthma, uncomplicated
CPT/HCPCS: 36415; 71046; 80053; 80061; 82306; 82607; 82728; 82746; 83036; 83525; 83540; 84425; 84443; 84590; 84630; 85025; 86140; 93005

== ENCOUNTER → 2025-01-12 08:21 | Outpatient (BNV) | payer OTHER, SELFPAY | PROVIDERS: PCP Internal Medicine Hematology & Oncology; Visit Provider Internal Medicine | DX: E66.01 Morbid (severe) obesity due to excess calories (principal) | CPT/HCPCS: 93010 ==

== ENCOUNTER → 2025-01-12 08:46 | Outpatient (BNV) | payer OTHER, SELFPAY | PROVIDERS: PCP Internal Medicine Hematology & Oncology; Visit Provider Radiology Diagnostic Radiology | DX: E66.01 Morbid (severe) obesity due to excess calories (principal) | CPT/HCPCS: 71046 ==

== ENCOUNTER 2025-02-02 14:51 | Day surgery (SDC) | payer OTHER, SELFPAY ==
--- OUTSIDE RECORDS SUMMARY | 2025-01-17 13:13 | XMS_ITS ---
Author Name [facility] Organization Unknown Care Team Organization Name Specialty Phone Email Start Date End Da te [facility] Vivek Sams Primary Care 11/02/20222023 [facility] CRISTIAN SORTO Primary Care 05/05/2022 02/14/20 24
--- OUTSIDE RECORDS SUMMARY | 2025-01-17 13:13 | XMS_ITS | Data Portability ---
Author Organization [facility], [address] Address [address] [place] [address] Assessment No assessment recorded. Plan of Treatment [...] Template NON DOT completed SHAMA TIFFANIE GARCIA [employer] 02/28/2023 16:59:59 Imaging Results None recorded. Procedure [...] SNOMED-CT Code Diagnosis ICD10 Code Diagnosis Note [id number] [address] [place] [address] 10/09/2018 08:23:46 10/09/2018 09:53:29 [id number] [address] [place] [address] 01/03/2021 09:10:48 01/03/2021 10:09:21 [id number] GUSTAVO VILLA [place] [address] [place] [address] 02/28/2023 14:43:52 02/28/2023 15:44:10 History and physical examination, occupation [id number] Z02.1 Health Concerns Section Related Observation LastModified by Organization Detai ls LastModified Time None Recorded Concern Status LastModified by Organization Details LastModified Time None Recorded Advance Directives Directive None Recorded Payers Insurance Date Sequence Insurance Name Policy Number Policy Sawant Covered Member ID Sawant Member ID Guarantor Name 02/27/2023 1 [facility] [employer] - HEALTH NET PLAN (MEDICAID HMO) DOMINGA Mack [id number] Franklyn Mack 02/28/2023 OC-ESCREEN [employer]PONSE Franklyn Mack OBGyn Episode No OBEpisode recorded.
--- OUTSIDE RECORDS SUMMARY | 2025-01-17 13:13 | XMS_ITS | Clinical Summary ---
Author Organization [facility] Address [address] [place] [address] Phone Care Team Providers Care Bark Grinder Name Role Phone Vivek Sams MD Primary Care Provider [phone] Allergies No known active allergies Medications ALBUTEROL SULFATE INHL Inhale 2 Puffs into the lungs as needed. Active azelastine (ASTELIN) 137 mcg (0.1 %) nasal spray 2 Sprays by Each Nare route 2 times daily. Use in each nostril as directed Active etonogestrel-elu ting contraceptive device (Nexplanon) 68 mg implant subdermal implant Inject 68 mg into the skin Once. 03/17/20 24 Active fluticasone propionate (FLONASE) 50 mcg/actuation nasal spray 2 Sprays by Each Nare route daily for 360 days. 08/25/19 23 Active loratadine (CLARITIN) 10 mg tablet Take 1 tablet (10 mg total) by mouth 1 (one) time each day. 06/10/20 23 Active Symbicort 160-4.5 mcg/actuation inhaler Inhale 2 puffs by mouth 2 (two) times a day. 10/05/19 25 Active SUMAtriptan (IMITREX) 50 mg tablet TAKE 1 TABLET (50 MG TOTAL) BY MOUTH 1 (ONE) TIME EACH DAY NEEDED FOR MIGRAINE. MAY REPEAT DOSE ONCE IN 2 HOURS IF NO RELIEF. DO NOT EXCEED 2 DOSES IN 24 HOURS. 9 tablet 1 01/11/20 25 Active phentermine 30 mg capsule Take 1 capsule (30 mg total) by mouth 1 (one) time each day before breakfast. Max Daily Amount: 30 mg 30 each 01/11/20 25 025 Active SUMAtriptan (IMITREX) 50 mg tablet Take 1 tablet (50 mg total) by mouth 1 (one) time each day if needed for migraine. May repeat dose once in 2 hours if no relief. Do not exceed 2 doses in 24 hours. 9 tablet 1 08/15/19 25 025 Discontinued phentermine 30 mg capsule Take 1 capsule (30 mg total) by mouth 1 (one) time each day before breakfast. Max Daily Amount: 30 mg 30 each 12/13/19 25 025 Discontinued(Re order) Active Problems Problem Noted Date Diagnosed Date Morbid obesity with BMI of 4 0.0-44.9, adult [place] [facility] [place] 05/18/[address] 03/17/2024 Overview (05/18/2024): Inserted 02/2024 Flat feet, bilateral 03/20/2020 Encounters Date Type Department Care Team Description 01/10/2025 8:30 AM EDT Office Visit [facility] [address] [place] [address] Vivek Sams MD Encounter for weight management (Primary Dx); Class 3 severe obesity due to excess calories without serious comorbidity with body mass index (BMI) of 40.0 to 44.9 in adult [place] [place] [facility] [place] 12/12/2024 9:00 AM EDT Office Visit [facility] [address] [place] [address] Vivek Sams MD Class 3 severe obesity due to excess calories without serious comorbidity with body mass index (BMI) of 45.0 to 49.9 in adult [place] [place] [facility] [place] [place] (Primary Dx) 11/03/2024 8:45 AM EDT Office Visit [facility] [address] [place] [address] Vivek Sams MD Encounter for weight management (Primary Dx); Morbid obesity with BMI of 40.0-44.9, adult (CMS/HCC V24, [facility] V28) from Last 3 Months Immunizations Name Administration Dates Next Due DTP 10/11/1995, 4,11/09/1993,1990 PRxK-LDO-CWD (Pentacel) 2mo to less than 5yo 01/09/1994,11/09/1993,1990 [...] Comments OTHER SURGICAL HISTORY 2021 Bilateral PROCEDURE: [place] DECOMPRESSION PLANTAR DIGITAL NERVE; COMMENT: 10/03/2021 (Left); [...] care for your loved ones. For example, children counselor or elderly care for an older adult? [...] Mass Index 42.4 01/10/2025 8:08 AM EDT Plan of Treatment Upcoming Encounters Date Type Department Care Team (Late st Contact Info) Description 02/15/2025 8:45 AM EDT Office Visit Internal Medicine - [facility] [address] [place] [address] Vivek Sams MD [address] [place] [address] Health Maintenance Due Date Last Done Comments Social Influencers of Health Screening 08/11/2025 08/11/2024 [...] 07/25/1999, 06/24/1999 COVID-19 Vaccine Discontinued 09/20/2020, 08/29/2020 Depression Screening Completed 08/11/2024 HIV Screening Completed 08/15/2024, 01/28, 08/20/2015 Hepatitis [...] LAB CHEMISTRY METHOD 08/15/2024 5:57 PM EST [facility] Blood Venous blood specimen / Unknown Venipuncture / Unknown 08/15/2024 1:13 PM EST 08/15/2024 1:13 PM EST [facility] - 08/15/2024 5:57 PM EST This assay is a 4th generation assay allowing for earlier detection of HIV infection by detecting the presence of the HIV-1 p24 antigen as well as the traditional antibodies to HIV type 1 (including group O) and type 2. Use of a 4th generation assay is the current CDC recommendation for HIV screening. us Vivek Sams MD LAB BLOOD ORDERABLES Final Resu lt [facility] [address] [place] [address], [place] [phone] * Lipid panel with reflex to direct LDL (08/15/2024 1:13 PM EST) Cholesterol 149 0 - 200 mg/dL LAB CHEMISTRY METHOD 08/15/2024 5:09 PM [facility] Triglycerides 110 0 - 150 mg/dL LAB CHEMISTRY METHOD 08/15/2024 5:09 PM [facility] HDL 41 >=40 mg/dL LAB CHEMISTRY METHOD 08/15/2024 5:09 PM [facility] LDL Calculated 86 0 - 100 mg/dL LAB CHEMISTRY METHOD 08/15/2024 5:09 PM [facility] VLDL Cholesterol Bull 22 mg/dL LAB CHEMISTRY METHOD 08/15/2024 5:09 PM [facility] Non HDL Chol. (LDL+VLDL) 108 <145 mg/dL LAB CHEMISTRY METHOD 08/15/2024 5:09 PM [facility] Chol/HDL Ratio 3.6 0.0 - 4.4 LAB CHEMISTRY METHOD 08/15/2024 5:09 PM [facility] Blood Venous blood specimen / Unknown Venipuncture / Unknown 08/15/2024 1:13 PM EST 08/15/2024 1:13 PM EST Vivek Sams MD LAB BLOOD ORDERABLES Final Resu lt Performing Organization Address City/[facility]/ZIP Co de Phone Number [facility] [address] [place] [address], [place] [phone] * Hepatitis panel, acute with reflex to confirmation (08/15/2024 1:13 PM EST) Hepatitis B Surface Ag Negative Negative LAB CHEMISTRY METHOD 08/15/2024 6:40 PM EST [facility] Hepatitis A Antibody IgM Negative Negative LAB CHEMISTRY METHOD 08/15/2024 6:40 PM EST [facility] Hep B Core IgM Negative Negative LAB CHEMISTRY METHOD 08/15/2024 6:40 PM EST [facility] Hepatitis C Antibody Negative Negative LAB CHEMISTRY METHOD 08/15/2024 6:40 PM EST [facility] Blood Venous blood specimen / Unknown Venipuncture / Unknown 08/15/2024 1:13 PM EST 08/15/2024 1:13 PM EST Vivek Sams MD LAB BLOOD ORDERABLES Final Resu lt Performing Organization Address [facility]/ZIP Co de Phone Number [facility] [address] [place] [address], [place] [phone] * Cervical Cancer Screening: HPV (02/25/2024) Pathologist [facility] Cervical Cancer Screening: HPV negative, abstracted Historical Provider HEALTH MAINTENANCE Final Result from Last 3 Months or Most Recently Relevant to Health Maintenance Insurance [facility] Care Teams Bark Grinder Relationship Specialty Start Date End Date Vivek Sams MD [address] [place] [address] PCP - General 08/06/22
--- NOTE | 2025-01-31 14:42 | HO.ANESPROP2 ---
Documented by User: Alecia Capps NP 01/31/25 14:42 HPI - Anesthesia Eval Consult details Narrative: 34yo F for Upper Endoscopy Anesthesia Pre-Procedure Meds Is the patient on any of the following meds?: GLP1/DPP4 PMFSH Active Problems Active Problems: All Active Problems Migraines (Acute) Asthma (Acute) Morbid obesity (Acute) Past Medical History Medical History Migraines Asthma Morbid obesity Family History Family History Mother No problems noted. Father Heart failure Gout Son No problems noted. Son Asthma Chronic headaches Daughter ADHD Epilepsy Surgical History Surgical History S/P foot surgery, right S/P foot surgery, left Social History Social History Alcohol intake: current Alcohol intake frequency: holidays/special occasions only Patient Tobacco Use Status: Never used Tobacco Use of substances other than those prescribed or required for medical reasons: No Advance Directives: No Advance Directives Information Provided: Yes Patient : No Meds Allergies Allergy/AdvReac Type Severity Reaction Status Date / Time No Known Allergies Allergy Verified 01/15/25 08:54 Home Medications ?Medication ?Instructions ?Recorded ?Confirmed ?Last Taken ?Type albuterol sulfate 90 mcg/actuation 2 puff inhalation Q6H PRN 12/15/24 01/08/25 Unknown History aerosol inhaler (Ventolin HFA) budesonide-formoterol HFA 160 2 puff inhalation BID 12/15/24 01/08/25 Unknown History mcg-4.5 mcg/actuation aerosol inhaler (Symbicort) clotrimazole 2 % vaginal cream 2 appful vaginal BEDTIME 12/15/24 01/08/25 Unknown History (Clotrimazole-3) levocetirizine 5 mg tablet 5 mg PO QPM PRN 12/15/24 01/08/25 Unknown History phentermine 30 mg capsule 30 mg PO DAILY 12/15/24 01/08/25 Unknown History sumatriptan succinate 50 mg tablet 50 mg PO Q2-4H PRN 12/15/24 01/08/25 Unknown History Assessment and Plan Assessment Anesthesia Assessment: Chart Reviewed Documented by User: Harshil Beverly MD 02/02/25 15:55 PMFSH Past Medical History Medical History Migraines Asthma Morbid obesity Patient : No Family History Family History Mother No problems noted. Father Heart failure Gout Son No problems noted. Son Asthma Chronic headaches Daughter ADHD Epilepsy Family history of problems with anesthesia: No Surgical History Surgical History S/P foot surgery, right S/P foot surgery, left History of Problems with Anesthesia: No Social History Social History Alcohol intake: current Alcohol intake frequency: holidays/special occasions only Patient Tobacco Use Status: Never used Tobacco Use of substances other than those prescribed or required for medical reasons: No Advance Directives: No Advance Directives Information Provided: Yes Patient : No Meds Allergies Allergy/AdvReac Type Severity Reaction Status Date / Time No Known Allergies Allergy Verified 01/15/25 08:54 Home Medications ?Medication ?Instructions ?Recorded ?Confirmed ?Last Taken ?Type albuterol sulfate 90 mcg/actuation 2 puff inhalation Q6H PRN 12/15/24 01/08/25 Unknown History aerosol inhaler (Ventolin HFA) budesonide-formoterol HFA 160 2 puff inhalation BID 12/15/24 01/08/25 Unknown History mcg-4.5 mcg/actuation aerosol inhaler (Symbicort) clotrimazole 2 % vaginal cream 2 appful vaginal BEDTIME 12/15/24 01/08/25 Unknown History (Clotrimazole-3) levocetirizine 5 mg tablet 5 mg PO QPM PRN 12/15/24 01/08/25 Unknown History phentermine 30 mg capsule 30 mg PO DAILY 12/15/24 01/08/25 Unknown History sumatriptan succinate 50 mg tablet 50 mg PO Q2-4H PRN 12/15/24 01/08/25 Unknown History Assessment and Plan Final Anesthetic Review Family History of Problems with Anesthesia: No History of Problems with Anesthesia: No Documented by User: David Levy MD 02/02/25 16:41 PMFSH Past Medical History Medical History Migraines Asthma Morbid obesity Functional capacity: independent ambulation Family History Family History Mother No problems noted. Father Heart failure Gout Son No problems noted. Son Asthma Chronic headaches Daughter ADHD Epilepsy Surgical History Surgical History S/P foot surgery, right S/P foot surgery, left Social History Social History Alcohol intake: current Alcohol intake frequency: holidays/special occasions only Patient Tobacco Use Status: Never used Tobacco Use of substances other than those prescribed or required for medical reasons: No Advance Directives: No Advance Directives Information Provided: Yes Patient : No Meds Allergies Allergy/AdvReac Type Severity Reaction Status Date / Time No Known Allergies Allergy Verified 01/15/25 08:54 Home Medications ?Medication ?Instructions ?Recorded ?Confirmed ?Last Taken ?Type albuterol sulfate 90 mcg/actuation 2 puff inhalation Q6H PRN 12/15/24 01/08/25 Unknown History aerosol inhaler (Ventolin HFA) budesonide-formoterol HFA 160 2 puff inhalation BID 12/15/24 01/08/25 Unknown History mcg-4.5 mcg/actuation aerosol inhaler (Symbicort) clotrimazole 2 % vaginal cream 2 appful vaginal BEDTIME 12/15/24 01/08/25 Unknown History (Clotrimazole-3) levocetirizine 5 mg tablet 5 mg PO QPM PRN 12/15/24 01/08/25 Unknown History phentermine 30 mg capsule 30 mg PO DAILY 12/15/24 01/08/25 Unknown History sumatriptan succinate 50 mg tablet 50 mg PO Q2-4H PRN 12/15/24 01/08/25 Unknown History Exam Exam Date and Time: 02/02/2025 Airway TM Dist: >3cm Neck ROM: Full Loose/Missing/Broken Teeth: No Heart: rrr Lungs: cta Other: normal Assessment and Plan Final Anesthetic Review NPO: Yes ASA Class: II Final Preanesthetic Review: No Changes in Pt Med Stat, Consent Obtained/Reviewed and Anes Risks/Benef Reviewed Patient Risk: Low Procedure Risk: Low Anesthetic Plan Anesthetic Plan: MAC:
[2025-02-02 15:08] VITALS: BMI 40.1
[2025-02-02 15:19] LABS: UPreg QC Valid YES
[2025-02-02 15:20] VITALS: BP 126/79; PULSE 97; RESP 16; TEMP 36.3; O2SAT 99
[2025-02-02] MEDS: Lactated Ringers 1,000 ML 80 ML IVCONT (15:21)
--- NOTE | 2025-02-02 15:47 | MHC.SHP ---
Pre-Procedural Eval Section A - 24 Hr Update-Section A only Date of Service: 02/02/25 The patient is an INPATIENT: No The patient has been examined within 24 hours of the surgical procedure. The History & Physical has been completed within 30 days and I have reviewed it.: Yes Section B - Complete if H&P > 30 days Chief Complaint: Morbid (severe) obesity due to excess calories Relevant Family History (Specify if Yes): No Relevant Social History: None Present Medications: None Medical History: No relevant PMH History of Previous Operations: No relevant previous surgery Allergies: Allergies Allergy/AdvReac Type Severity Reaction Status Date / Time No Known Allergies Allergy Verified 01/15/25 08:54 Review of Systems Sugical H&P ROS: Negative: Constitution, Cardiovascular, Respiratory, Neurological, Psychiatric, Hem-Onc, Allergic/Immunologic, Gastrointestinal, Genitourinary, Musculoskeletal, Integumentary, Endocrine and Eyes/Ears/Nose/Throat Exam Surgical H&P Exam: Normal: HEENT, Normal: Heart, Normal: Lungs, Normal: Extremities, Normal: Abdomen, Normal: Skin and Normal: Neurological Plan Diagnosis/Plan: Unchanged (EGD to assess the stomach's anatomy. Risks of bleeding and perforation were discussed with the patient and she is in agreement with the plan.) I have reviewed the history and physical and performed a pertinent physical examination on my patient. No changes have occurred unless specified. Time Spent With Patient Time: Total time managing care of this patient today ____ minutes.
--- NOTE | 2025-02-02 15:47 | PM.OP ---
Brief Operative Note Date of Service: 02/02/25 Pre-op diagnosis: Morbid obesity Post-op diagnosis: same Procedure: PROCEDURE DATE: 02/02/2025 PREOPERATIVE DIAGNOSIS: GERD POSTOPERATIVE DIAGNOSIS: ?Same as above. 1) small hiatal hernia, 2) duodenal polyps PROCEDURE: Wngemcyi-gnxlab-ilfjgkiicbgo with biopsies Surgeon: ?Vikram Hernandez M.D.. Ph.D. Retail Sales Associate Seasonal: None ? Anesthesia: IV sedation Estimated blood loss: ?Minimal FINDINGS AND PROCEDURE: ? OPERATIVE INDICATIONS: ?The patient is a 34 year old female known to me who is interested in bariatric surgery. Based on this information I recommended an upper endoscopy to evaluate the patient's symptoms. Risks and complications of the surgery were discussed with the patient in advance particularly the possibility of perforation or bleeding that may require surgical intervention. The patient understood the risks and was in agreement with the plan. ? PROCEDURE: After informed consent was obtained by the patient, the patient was ?transferred to the Operating Room and was placed in the supine position.? After successful induction of IV sedation, a mouth block was inserted and the patient was placed in the left lateral decubitus position. An upper endoscopy was performed next, the oropharynx and esophagus appeared within the normal limits. There was a small 2cm hiatal hernia. The z-line was smooth. Two biopsies were obtained from the distal esophagus 2-3 cm proximal to the GE junction and two additional biopsies from the GE junction. The stomach was entered and it appeared to be of normal size. There was no gastritis. There was no stricture or ulcer. A biopsy was obtained from the gastric fundus and the antrum. No significant bleeding was noted from any of the biopsy sites. Retroflexion of the scope confirmed the presence of a small hiatal hernia. The scope was then advanced into the duodenum. There were a few small polups and one of them was biopsied. At that point the duodenum ?and the stomach were decompressed and the scope was withdrawn from the patient's mouth. The patient extubated and was transferred in stable condition to the Recovery Room for further care. I was present and performed all steps of the procedure. There were no residents to assist with this case. Vikram Hernandez M.D., Ph.D. Surgeon: Papito Hernandez MD Anesthesia: MAC Was an Retail Sales Associate Seasonal used for this Procedure?: No Estimated blood loss (mL): 0 IV fluids (mL): 400 Urine output (mL): 0 Pathology: other (1) antrum x1, 2) fundus x1, 3) GE junction x2, 4) distal esophagus x2, 5) duodenal polyp x1) Condition: stable Disposition: PACU
[2025-02-02 17:14] VITALS: BP 120/74; PULSE 125; RESP 20; TEMP 36.9; O2SAT 98
[2025-02-02 17:29] VITALS: BP 113/66; PULSE 86; RESP 18; TEMP 36.6; O2SAT 100
== END 2025-02-02 17:36 | disposition home or self-care (01) ==
PROVIDERS: Nurse Practitioner; PCP Internal Medicine; Visit Provider Surgery
PROC: 0DJ08ZZ Inspection of Upper Intestinal Tract, Via Natural or Artificial Opening Endoscopic (ICD-10-PCS; CPT 43235; principal; 2025-02-02 16:40)
DX: K21.9 Gastro-esophageal reflux disease without esophagitis (principal); E66.01 Morbid (severe) obesity due to excess calories; Z68.41 Body mass index [BMI] 40.0-44.9, adult; K29.50 Unspecified chronic gastritis without bleeding; B96.81 Helicobacter pylori [H. pylori] as the cause of diseases classified elsewhere; K31.7 Polyp of stomach and duodenum; K44.9 Diaphragmatic hernia without obstruction or gangrene; J45.909 Unspecified asthma, uncomplicated; Z79.899 Other long term (current) drug therapy; G43.909 Migraine, unspecified, not intractable, without status migrainosus; Z98.890 Other specified postprocedural states
CPT/HCPCS: 43239; 81025; 88305; 88313; 88342; J2003; J2704

== ENCOUNTER → 2025-02-02 14:51 | Outpatient (BNV) | payer OTHER, SELFPAY | PROVIDERS: PCP Internal Medicine; Visit Provider Surgery | DX: K21.9 Gastro-esophageal reflux disease without esophagitis (principal); K31.7 Polyp of stomach and duodenum | CPT/HCPCS: 43239 ==

== ENCOUNTER 2025-02-09 09:07 | Outpatient (AMB) | payer OTHER, SELFPAY ==
--- NOTE | 2025-02-09 09:07 | A.OFFWM_ITS ---
Intake Intake Visit Reasons: OV BH Intake Allergies No Known Allergies Allergy (Verified 01/15/25 08:54) [facility] Medical History Migraines Asthma Morbid obesity Surgical History S/P foot surgery, right S/P foot surgery, left Family History Mother No problems noted. Father Heart failure Gout Son No problems noted. Son Asthma Chronic headaches Daughter ADHD Epilepsy Social History Alcohol intake: current Alcohol intake frequency: holidays/special occasions only Patient Tobacco Use Status: Never used Tobacco Behavioral Health Assessment Weight Management Therapy Therapy Notes Details PT is a 34 years old female, who presents for initial visit to start BH assessment as part of surgical weight loss program. PT Initially referred by PCP due to her high BMI. Presenting Concerns Referral Source WMP-Provider. Reason for referral Completion of behavioral health assessment as part of process for weight-loss surgery. Precipitating Event Feet injury and obesity. Social History Family history and relationship PT been with partner for 11 years, they have 2 kids together (her 2 youngest) PT have 3 children, her partner has 2 kids previous to her. PT has 4 siblings Growing up they moved a lot due to her father's status. Father , mother is alive. PT is very close to her mom, they talk daily. And all the siblings try to stay close and do things together. 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 (They are 18, 13 and 8) Developmental history and status None reported. Currently WNL Social support Mother, siblings, partner, kids. Community support Some friends. Oriental Orthodox/Spirituality Quaker. Cultural/Ethnic information . [place]. Legal Involvement and History Current or historical involvement with the legal system? None reported. Education Highest grade completed College, culinary school also has a certificate for EMT. Preferred learning style Learn by doing Currently enrolled in educational program? No Interested in further educational program? Yes Educational Interests/Skills Healthcare field. 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 No Meaningful activities Cooking. Financial Situation Describe current financial situation Comfortable Financial assistance? Food [place] Service Service? No Mental Health and Addiction Treatment Current/Past substance abuse? No Comments Alcohol: Every 3-4 months. Social 2-3 wine coolers. Cigarettes/Tobacco: none. Cannabis/Edibles: None Current/Past addictive behavior concerns? No Psychiatric history PT denies any MH treatment and There is no history and/or current concern about SI/Sa and self-harm or other harm. Medical and Physical Health Summary Additional Medical History not covered in history None aditional Sexual History concerns None reported. Physical exam in the last year? Yes Pain Screening Current pain? No Pain in the last few months? Yes (Back pain.) Medications Is the patient compliant with medications? Yes Does the patient have Mack Guardian in place? Not applicable Does the patient use complimentary health approaches? No Trauma/Abuse History History of trauma? No Questionnaires PHQ-9 Over the last 2 weeks, how often have you been bothered by any of the following problems? 1. Little interest or pleasure in doing things: not at all 2. Feeling down, depressed, or hopeless: not at all 3. Trouble falling or staying asleep, or sleeping too much: not at all 4. Feeling tired or having little energy: not at all 5. Poor appetite or overeating: several days 6. Feeling bad about yourself - or that you are a failure or have let yourself or your family down: not at all 7. Trouble concentrating on things, such as reading the newspaper or watching television: not at all 8. Moving or speaking so slowly that other people could have noticed. Or the opposite - being so fidgety or restless that you have been moving around a lot more than usual: not at all 9. Thoughts that you would be better off or of hurting yourself in some way: not at all Total score: 1 Depression Screening Interpretation: Negative (From new PT scale.) Depression Screening Done: Yes Source: Developed by Drs. Jaden Rodriguez, Gabby Hawthorne, Rene Pulido and colleagues, with an educational vicente from [employer]. Binge Eating Scale Group 1 A. I don't feel self-conscious about my wt. or body size when I'm with others. B. I feel concerned about how I look to others, but it normally does not make me fell disappointed with myself C. I do get self-conscious about my appearance and wt. which makes me feel disappointed in myself. D. I feel very self-conscious about my wt. and frequently I feel intense shame and disgust for myself. I try to avoid social contacts because of my self- consciousness. Response Group 1: C Group 2 A. I don't have any difficulty eating slowly in the proper manner. B. Although I seem to gobble down foods, I don't end up feeling stuffed because of eating to much. C. At times, I tend to eat quickly and then, I feel uncomfortably full afterwards. D. I have the habit of bolting down my food, without really chewing it. When this happens I usually feel uncomfortably stuffed because I've eaten to much. Response Group 2: A Group 3 A. I feel capable to control my eating urges when I want to. B. I feel like I have failed to control my eating more than the average person. C. I feel utterly helpless when it comes to feeling in control of my eating urges. D. Because I feel so helpless about controlling my eating I have become very desperate about trying to get control. Response Group 3: A Group 4 A. I don't have the habit of eating when I'm bored. B. I sometimes eat when I'm bored, but often I'm able to get busy and get my mind off food. C. I have a regular habit of eating when I'm bored, but occasionally, I can use some other activity to get my mind off eating. D. I have a strong habit of eating when I'm bored. Nothing seems to help me breath the habit. Response Group 4: B Group 5 A. I'm usually physically hungry when I eat something. B. Occasionally, I eat something on impulse even though I really am not hungry. C. I have the regular habit of eating foods, that I might not really enjoy, to satisfy a hungry feeling even though physically, I don't need the food. D. Although I'm not physically hungry, I get a hungry feeling in my mouth that only seems to be satisfied when I eat a food, like sandwich, that fills my mouth. Sometimes, when I eat the food to satisfy my mouth hunger, I then spit the food out so I won't gain weight. Response Group 5: A Group 6 A. I don't feel any guilt or self-hate after I overeat. B. After I overeat, occasionally I feel guilt or self-hate. C. Almost all the time I experience strong guilt or self-hate after I overeat. Response Group 6: B Group 7 A. I don't lose total control of my eating when dieting even after periods when I overeat. B. Sometimes when I eat a forbidden food on a diet, I feel like I blew it and eat even more. C. Frequently, I have the habit of saying to myself, I've blown it now, why not go all the way, when I overeat on a diet. When that happens I eat more. D. I have a regular habit of starting a strict diets for myself but I break the diets by going on an eating binge. My life seems to be either a feast or famine. Response Group 7: A Group 8 A. I rarely eat so much food that I feel uncomfortably stuffed afterwards. B. Usually about once a month, I each such a quantity of food, I end up feeling very stuffed. C. I have regular periods during the month when I eat large amounts of food, either at mealtime or at snacks. D. I eat so much food that I regularly feel quite uncomfortable after eating and sometimes a bit nauseous. Response Group 8: B Group 9 A. My level of calorie intake does not go up very high or go down very low on a regular basis. B. Sometimes after I overeat, I will try to reduce my caloric intake to almost nothing to compensate for the excess calories I've eaten. C. I have a regular habit of overeating during the night. It seems that my routine is not to be hungry in the morning but overeat in the evening. D. In my adult years, I have had week-long periods where I practically starve myself. This follows periods when I overeat. It seems I live a life of either feast or famine. Response Group 9: A Group 10 A. I usually am able to stop eating when I want to. I know when enough is enough. B. Every so often, I experience a compulsion to eat which I can't seem to control. C. Frequently, I experience strong urges to eat which I seem unable to control, but at other times I can control my eating urges. D. I feel incapable of controlling urges to eat. I have a fear of not being able to stop eating voluntarily. Response Group 10: A Group 11 A. I don't have any problem stopping eating when I feel full. B. I usually can stop eating when I feel full but occasionally overeat leaving me feeling uncomfortably stuffed. C. I have a problem stopping eating once I start and usually I feel uncomfortably stuffed after I eat a meal. D. Because I have a problem not being able to stop eating when I want, I sometimes have to induce vomiting to relieve my stuffed feeling. Response Group 11: A Group 12 A. I seem to eat just as much when I'm with others, Family social gatherings as when I'm by myself. B. Sometimes, when I'm with other persons, I don't eat as much as I want to eat because I'm self-conscious about my eating. C. Frequently, I eat only a small amount of food when others are present, because I'm very embarrassed about my eating. D. I feel so ashamed about overeating that I pick times to overeat when I know no one will see me. I feel like a closet eater. Response Group 12: A Group 13 A. I eat three meals a day with only an occasional between meal snack. B. I eat 3 meals a day, but I also normally snack between meals. C. When I am snacking heavily, I get in the habit of skipping regular meals. D. There are regular periods when I seem to be continually eating, with no planned meals. Response Group 13: A Group 14 A. I don't think much about trying to control unwanted eating urges. B. At least some of the time, I feel my thoughts are pre-occupied with trying to control my eating urges. C. I feel that frequently I spend much time thinking about how much I ate or about trying not to eat anymore. D. It seems to me that most of my waking hours are pre-occupied by thoughts about eating or not eating. I feel like I'm constantly struggling not to eat. Response Group 14: A Group 15 A. I don't think about food a great deal. B. I have strong craving for food but they last only for brief periods of time. C. I have days when I can't seem to think about anything else but food. D. Most of my days seem to be pre-occupied with thoughts about food. I feel like I live to eat. Response Group 15: A Group 16 A. I usually know whether or not I'm physically hungry. I take the right portion of food to satisfy me. B. Occasionally, I feel uncertain about knowing whether or not I'm physically hungry. A these times it's hard to know how much food I should take to satisfy me. C. Even though I might know how many calories I should eat, I don't have any i john what is a normal amount of food for me. Response Group 16: A Binge Eating Score: 5 Score less than 17 Minimal Risk Score between 18-26 Moderate Risk Score between 27-46 High Risk Assessment & Plan Assessment & Plan (1) Adjustment disorder: Code(s): F43.20 - Adjustment disorder, unspecified (2) Pre-bariatric surgery psychological evaluation: Code(s): Z71.89 - Other specified counseling Plan The patient was not cleared today as the assessment was not completed. The patient will return in 2-4 weeks to continue the evaluation. Next appointment: 03/05/2025 10am, telehealth for intake part 2. Coding Level of Care Code New Pt Psy Diag Eval (80754) Patient Type New Diagnoses Adjustment disorder F43.20 Pre-bariatric surgery psychological evaluation Z71.89 Time Spent (min) 53
--- OUTSIDE RECORDS SUMMARY | 2025-02-09 09:23 | XMS_ITS | Clinical Summary ---
Author Organization [facility] Address [address] [place] [address] Phone Care Team Providers Care Java Application Developer Name Role Phone Vivek Sams MD Primary Care Provider Allergies No known active allergies Medications ALBUTEROL SULFATE INHL Inhale 2 Puffs into the lungs as needed. Active azelastine (ASTELIN) 137 mcg (0.1 %) nasal spray 2 Sprays by Each Nare route 2 times daily. Use in each nostril as directed Active etonogestrel-eluti ng contraceptive device (Nexplanon) 68 mg implant subdermal implant Inject 68 mg into the skin Once. 4 Active fluticasone propionate (FLONASE) 50 mcg/actuation nasal spray 2 Sprays by Each Nare route daily for 360 days. 3 Active loratadine (CLARITIN) 10 mg tablet Take 1 tablet (10 mg total) by mouth 1 (one) time each day. 3 Active Symbicort 160-4.5 mcg/actuation inhaler Inhale 2 puffs by mouth 2 (two) times a day. 5 Active SUMAtriptan (IMITREX) 50 mg tablet TAKE 1 TABLET (50 MG TOTAL) BY MOUTH 1 (ONE) TIME EACH DAY NEEDED FOR MIGRAINE. MAY REPEAT DOSE ONCE IN 2 HOURS IF NO RELIEF. DO NOT EXCEED 2 DOSES IN 24 HOURS. 9 tablet 1 5 Active phentermine 30 mg capsule Take 1 capsule (30 mg total) by mouth 1 (one) time each day before breakfast. Max Daily Amount: 30 mg 30 each 5 Active Active Problems Problem Noted Date Diagnosed Date Morbid obesity with BMI of 4 0.0-44.9, adult ([facility] V24, [facility] V28) 05/18/[address] 03/17/2024 Overview (05/18/2024): Inserted 02/2024 Flat feet, bilateral 03/20/2020 Encounters Date Type Department Care Team Description 01/10/2025 8:30 AM EDT Office Visit [facility] [address] [place] [phone] Vivek Sams MD Encounter for weight management (Primary Dx); Class 3 severe obesity due to excess calories without serious comorbidity with body mass index (BMI) of 40.0 to 44.9 in adult ([facility] V24, [facility] V28) 12/12/2024 9:00 AM EDT [facility] [address] [place] [phone] Vivek Sams MD Class 3 severe obesity due to excess calories without serious comorbidity with body mass index (BMI) of 45.0 to 49.9 in adult ([facility] V24, [facility] V28) (Primary Dx) from Last 3 Months Immunizations Name Administration Dates Next Due DTP 10/11/1995, 4,11/09/1993,1990 [id number] (Pentacel) 2mo to less than 5yo 01/09/1994,11/09/1993,1990 [...] Comments OTHER SURGICAL HISTORY 2021 Bilateral PROCEDURE: [place] DECOMPRESSION PLANTAR DIGITAL NERVE; COMMENT: 10/03/2021 (Left); [...] for your loved ones. For example, child welfare assistant or elderly care for an older adult? [...] Encounters Date Type Department Care Team (Late Contact Info) Description 02/15/2025 8:45 AM EDT [facility] [address] [facility] [place] [phone] Vivek Sams MD [address] [place] [address] Health Maintenance Due Date Last Done Comments [...] reflex to differentiation (08/15/2024 1:13 PM EST) Pathologist [facility] HIV Combo AB/AG Negative Negative LAB CHEMISTRY METHOD 08/15/2024 5:57 PM EST [facility] Blood Venous blood specimen / Unknown Venipuncture / Unknown 08/15/2024 1:13 PM EST 08/15/2024 1:13 PM EST Narrative [facility] - 08/15/2024 5:57 PM EST [...] MD LAB BLOOD ORDERABLES Final Resu lt [facility] [address] [place] [address], [place] [phone] * Lipid panel with reflex to direct LDL (08/15/2024 1:13 PM EST) Cholesterol 149 0 - 200 mg/dL LAB CHEMISTRY METHOD 08/15/2024 5:[address] [facility] Triglycerides 110 0 - 150 mg/dL LAB CHEMISTRY METHOD 08/15/2024 5:[address] [facility] HDL 41 >=40 mg/dL LAB CHEMISTRY METHOD 08/15/2024 5:[address] [facility] LDL Calculated 86 0 - 100 mg/dL LAB CHEMISTRY METHOD 08/15/2024 5:[address] [facility] VLDL Cholesterol Bull 22 mg/dL LAB CHEMISTRY METHOD 08/15/2024 5:[address] [facility] Non HDL Chol. (LDL+VLDL) 108 <145 mg/dL LAB CHEMISTRY METHOD 08/15/2024 5:[address] [facility] Chol/HDL Ratio 3.6 0.0 - 4.4 LAB CHEMISTRY METHOD 08/15/2024 5:[address] [facility] Blood Venous blood specimen / Unknown Venipuncture / Unknown 08/15/2024 1:13 PM EST 08/15/2024 1:13 PM EST Vivek Sams MD LAB BLOOD ORDERABLES Final Resu lt [facility] [address] [place] [address], * Hepatitis panel, acute with reflex to confirmation (08/15/2024 1:13 PM EST) Hepatitis B Surface Ag Negative Negative LAB CHEMISTRY METHOD 08/15/2024 6:[address] [facility] Hepatitis A Antibody IgM Negative Negative LAB CHEMISTRY METHOD 08/15/2024 6:[address] [facility] Hep B Core IgM Negative Negative LAB CHEMISTRY METHOD 08/15/2024 6:[address] [facility] Hepatitis C Antibody Negative Negative LAB CHEMISTRY METHOD 08/15/2024 6:40 PM EST [facility] Blood Venous blood specimen / Unknown Venipuncture / Unknown 08/15/2024 1:13 PM EST 08/15/2024 1:13 PM EST Vivek Sams MD LAB BLOOD ORDERABLES Final Resu lt [facility] [address] [place] [address], [place] [phone] * Cervical Cancer Screening: HPV (02/25/2024) Cervical Cancer Screening: HPV negative, abstracted us Historical Provider HEALTH MAINTENANCE Final Result from Last 3 Months or Most Recently Relevant to Health Maintenance Insurance [facility] On Call PLAN Care Teams Java Application Developer Relationship Specialty Start Date End Date Vivek Sams MD [address] [place], [place] [address], [place] [address] PCP - General 08/06/22
== END 2025-02-09 12:20 | disposition home or self-care (01) ==
LOC: HO.HBST 09:08
PROVIDERS: PCP Internal Medicine Hematology & Oncology; Visit Provider Counselor Mental Health
DX: F43.20 Adjustment disorder, unspecified (principal); Z71.89 Other specified counseling
CPT/HCPCS: 90791

== ENCOUNTER 2025-02-22 08:30 | Outpatient (AMB) | payer OTHER, SELFPAY ==
--- NOTE | 2025-02-22 08:35 | A.OFFWM_ITS ---
Intake Intake Visit Reasons: VIDEO BH Intake Part 2 Allergies No Known Allergies Allergy (Verified 01/15/25 08:54) [facility] Medical History Migraines Asthma Morbid obesity Surgical History S/P foot surgery, right S/P foot surgery, left Family History Mother No problems noted. Father Heart failure Gout Son No problems noted. Son Asthma Chronic headaches Daughter ADHD Epilepsy Social History Alcohol intake: current Alcohol intake frequency: holidays/special occasions only Patient Tobacco Use Status: Never used Tobacco Behavioral Health Assessment Weight Management Therapy Therapy Notes Details The patient is a 34-year-old female presenting for a follow-up visit to complete the behavioral health assessment required for the surgical weight loss program. She was initially referred by her primary care provider due to a high BMI and began the program on 01/08/2025 at a starting weight of 262 lbs. The initial goal was to achieve a 10% weight loss, approximately 26 lbs, with a target pre-surgical weight of 236 lbs. As of 02/20/2025, she reports a weight of 220 lbs, surpassing her initial goal, and has been adherent to the meal and exercise plan provided by the surgical team. During the assessment, the patient denied any history of mental health treatment, psychiatric hospitalizations, or behavioral health crises. She also reported no history or current concerns regarding suicidal ideation, suicide attempts, self-harm, or harm to others. There is no reported history of substance use. She does not endorse stress-related or emotional eating, and her Binge Eating Scale (BES) scores indicate a low risk for binge eating disorder. Additionally, her PHQ-9 scores are within normal limits, with no evidence of depressive symptoms. The mental status examination was unremarkable, with no impairment in functioning observed. Based on the current assessment, the patient is psychiatrically stable, demonstrates appropriate insight and motivation, and is cleared from a behavioral health standpoint to proceed with the surgical weight loss program. Presenting Concerns Referral Source WMP-Provider. Reason for referral Completion of behavioral health assessment as part of process for weight-loss surgery. Precipitating Event Feet injury and obesity. Living Situation Current Living Situation Rent At risk of losing current housing? No Satisfied with current living situation? Yes Comments Pt lives with her partner and children. Food/Weight/Diet Expectations of change PT started the program on 01/08/2025 at 262 lbs, and the initial goal was to lose 10% of her weight before surgery, which is about 26lbs. Ultimate weight goal: 236lbs before surgery Patient reported a recent weight of 220Lbs as of 02/20/2025. PT is implementing the following: Current meal plan: 2 protein shakes, 2-2.5 protein bars, and one meal per day. Exercise plan: stationary bike. - Burning 300 veronika each day, 7 days at week. Scale: Yes Communication with provider: Tuesdays. 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 PT denies stress/emotional eating concerns. Example of meals before starting the program: Breakfast: Skip Lunch: Salad, chicken, dressing. Dinner: Mac and cheese w/fried chicken, Burger w/fries, Ribs w/mashed potatoes, and a vegetable on the side. Always pizza on Fridays. Snacks: 5-6 per day. Granola bars, apple sauce, fruit rollers. Drinks/Liquids: Coffee: none. Tea: green tea with honey. Energy Drinks: 1-2 x month. Juice: 2-4 cups at day. Soda: 1-2 cans a week. Water: 8-10 cups at day. Alcohol: occasionally 4-5 times in a year. History/Relationship with weight PT reported she was a healthy weight up until HS when she had her first child at age 16. After her second child, she was never under 200Lbs again. In the last 10 years, the patient's Lowest weight was 220Lbs and the highest 270Lbs History/Relationship with dieting - Self-diets. Usually, after she plateau ed at a certain weight, she would go back to old habits and would gain all the weight back. - Was on Phentermine max dose of 37.5mg/ d for 3 months without any weight loss and side effects of nausea and dizziness Binge Eating Do you frequently eat large amounts of food in short periods of time, not feeling physically hungry? No Do you feel out of control when you eat a large amount of food in a short period of time? No Do you eat large amounts of food rapidly and typically alone? No Night Eating Do you wake up at least once during the night to eat? No If you wake up in the night, do you find that it is necessary to eat something in order to fall back asleep? No Do you have little or no appetite in the morning and feel very hungry in the evening, often overeating between dinner and when you go to bed? Yes Social History Family history and relationship PT been with partner for 11 years, they have 2 kids together (her 2 youngest) PT have 3 children, her partner has 2 kids previous to her. PT has 4 siblings Growing up they moved a lot due to her father's status. Father , mother is alive. PT is very close to her mom, they talk daily. And all the siblings try to stay close and do things together. Parental/Familial methods study analyst obligations Her 3 children. (They are 18, 13 and 8) Developmental history and status None reported. Currently WNL Social support Mother, siblings, partner, kids. Community support Some friends. Sabianism/Spirituality Zoroastrian. Cultural/Ethnic information . Family is from the [facility]. Legal Involvement and History Current or historical involvement with the legal system? None reported. Education Highest grade completed College, culinary school also has a certificate for EMT. Preferred learning style Learn by doing Currently enrolled in educational program? No Interested in further educational program? Yes Educational Interests/Skills Healthcare field. 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 No Meaningful activities Cooking. Financial Situation Describe current financial situation Comfortable Financial assistance? Food Spring Service Service? No Mental Health and Addiction Treatment Current/Past substance abuse? No Comments Alcohol: Every 3-4 months. Social 2-3 wine coolers. Cigarettes/Tobacco: none. Cannabis/Edibles: None Current/Past addictive behavior concerns? No Psychiatric history PT denies any MH treatment, and there is no history and/or current concern about SI/Sa and self-harm or other harm. Medical and Physical Health Summary Additional Medical History not covered in history None aditional Sexual History concerns None reported. Physical exam in the last year? Yes Pain Screening Current pain? No Pain in the last few months? Yes (Back pain.) Medications Is the patient compliant with medications? Yes Does the patient have Mack Guardian in place? Not applicable Does the patient use complimentary health approaches? No Trauma/Abuse History History of trauma? No Questionnaires PHQ-9 Over the last 2 weeks, how often have you been bothered by any of the following problems? 1. Little interest or pleasure in doing things: not at all 2. Feeling down, depressed, or hopeless: not at all 3. Trouble falling or staying asleep, or sleeping too much: several days (falling ) 4. Feeling tired or having little energy: not at all 5. Poor appetite or overeating: not at all 6. Feeling bad about yourself - or that you are a failure or have let yourself or your family down: not at all 7. Trouble concentrating on things, such as reading the newspaper or watching television: not at all 8. Moving or speaking so slowly that other people could have noticed. Or the opposite - being so fidgety or restless that you have been moving around a lot more than usual: not at all 9. Thoughts that you would be better off or of hurting yourself in some way: not at all Total score: 1 Depression Screening Interpretation: Negative Depression Screening Done: Yes 22711 - PHQ-9 Billing: Yes Source: Developed by Drs. Jaden Rodriguez, Gabby Hawthorne, Rene Pulido and colleagues, with an educational vicente from [email or web address]. Binge Eating Scale Group 1 A. I don't feel self-conscious about my wt. or body size when I'm with others. B. I feel concerned about how I look to others, but it normally does not make me fell disappointed with myself C. I do get self-conscious about my appearance and wt. which makes me feel disappointed in myself. D. I feel very self-conscious about my wt. and frequently I feel intense shame and disgust for myself. I try to avoid social contacts because of my self- consciousness. Response Group 1: C Group 2 A. I don't have any difficulty eating slowly in the proper manner. B. Although I seem to gobble down foods, I don't end up feeling stuffed because of eating to much. C. At times, I tend to eat quickly and then, I feel uncomfortably full afterwards. D. I have the habit of bolting down my food, without really chewing it. When th is happens I usually feel uncomfortably stuffed because I've eaten to much. Response Group 2: A Group 3 A. I feel capable to control my eating urges when I want to. B. I feel like I have failed to control my eating more than the average person. C. I feel utterly helpless when it comes to feeling in control of my eating urges. D. Because I feel so helpless about controlling my eating I have become very desperate about trying to get control. Response Group 3: A Group 4 A. I don't have the habit of eating when I'm bored. B. I sometimes eat when I'm bored, but often I'm able to get busy and get my mind off food. C. I have a regular habit of eating when I'm bored, but occasionally, I can use some other activity to get my mind off eating. D. I have a strong habit of eating when I'm bored. Nothing seems to help me breath the habit. Response Group 4: B Group 5 A. I'm usually physically hungry when I eat something. B. Occasionally, I eat something on impulse even though I really am not hungry. C. I have the regular habit of eating foods, that I might not really enjoy, to satisfy a hungry feeling even though physically, I don't need the food. D. Although I'm not physically hungry, I get a hungry feeling in my mouth that only seems to be satisfied when I eat a food, like sandwich, that fills my mouth. Sometimes, when I eat the food to satisfy my mouth hunger, I then spit the food out so I won't gain weight. Response Group 5: A Group 6 A. I don't feel any guilt or self-hate after I overeat. B. After I overeat, occasionally I feel guilt or self-hate. C. Almost all the time I experience strong guilt or self-hate after I overeat. Response Group 6: B Group 7 A. I don't lose total control of my eating when dieting even after periods when I overeat. B. Sometimes when I eat a forbidden food on a diet, I feel like I blew it and eat even more. C. Frequently, I have the habit of saying to myself, I've blown it now, why not go all the way, when I overeat on a diet. When that happens I eat more. D. I have a regular habit of starting a strict diets for myself but I break the diets by going on an eating binge. My life seems to be either a feast or famine. Response Group 7: A Group 8 A. I rarely eat so much food that I feel uncomfortably stuffed afterwards. B. Usually about once a month, I each such a quantity of food, I end up feeling very stuffed. C. I have regular periods during the month when I eat large amounts of food, either at mealtime or at snacks. D. I eat so much food that I regularly feel quite uncomfortable after eating and sometimes a bit nauseous. Response Group 8: B Group 9 A. My level of calorie intake does not go up very high or go down very low on a regular basis. B. Sometimes after I overeat, I will try to reduce my caloric intake to almost nothing to compensate for the excess calories I've eaten. C. I have a regular habit of overeating during the night. It seems that my routine is not to be hungry in the morning but overeat in the evening. D. In my adult years, I have had week-long periods where I practically starve myself. This follows periods when I overeat. It seems I live a life of either feast or famine. Response Group 9: A Group 10 A. I usually am able to stop eating when I want to. I know when enough is enough. B. Every so often, I experience a compulsion to eat which I can't seem to control. C. Frequently, I experience strong urges to eat which I seem unable to control, but at other times I can control my eating urges. D. I feel incapable of controlling urges to eat. I have a fear of not being able to stop eating voluntarily. Response Group 10: A Group 11 A. I don't have any problem stopping eating when I feel full. B. I usually can stop eating when I feel full but occasionally overeat leaving me feeling uncomfortably stuffed. C. I have a problem stopping eating once I start and usually I feel uncomfortably stuffed after I eat a meal. D. Because I have a problem not being able to stop eating when I want, I sometimes have to induce vomiting to relieve my stuffed feeling. Response Group 11: A Group 12 A. I seem to eat just as much when I'm with others, Family social gatherings as when I'm by myself. B. Sometimes, when I'm with other persons, I don't eat as much as I want to eat because I'm self-conscious about my eating. C. Frequently, I eat only a small amount of food when others are present, because I'm very embarrassed about my eating. D. I feel so ashamed about overeating that I pick times to overeat when I know no one will see me. I feel like a closet eater. Response Group 12: A Group 13 A. I eat three meals a day with only an occasional between meal snack. B. I eat 3 meals a day, but I also normally snack between meals. C. When I am snacking heavily, I get in the habit of skipping regular meals. D. There are regular periods when I seem to be continually eating, with no planned meals. Response Group 13: A Group 14 A. I don't think much about trying to control unwanted eating urges. B. At least some of the time, I feel my thoughts are pre-occupied with trying to control my eating urges. C. I feel that frequently I spend much time thinking about how much I ate or about trying not to eat anymore. D. It seems to me that most of my waking hours are pre-occupied by thoughts about eating or not eating. I feel like I'm constantly struggling not to eat. Response Group 14: A Group 15 A. I don't think about food a great deal. B. I have strong craving for food but they last only for brief periods of time. C. I have days when I can't seem to think about anything else but food. D. Most of my days seem to be pre-occupied with thoughts about food. I feel like I live to eat. Response Group 15: A Group 16 A. I usually know whether or not I'm physically hungry. I take the right portion of food to satisfy me. B. Occasionally, I feel uncertain about knowing whether or not I'm physically hungry. A these times it's hard to know how much food I should take to satisfy me. C. Even though I might know how many calories I should eat, I don't have any idea what is a normal amount of food for me. Response Group 16: A Binge Eating Score: 5 Score less than 17 Minimal Risk Score between 18-26 Moderate Risk Score between 27-46 High Risk Assessment & Plan Assessment & Plan (1) Adjustment disorder: Code(s): F43.20 - Adjustment disorder, unspecified (2) Pre-bariatric surgery psychological evaluation: Code(s): Z71.89 - Other specified counseling Plan The patient has been cleared from a behavioral health standpoint and can be submitted for insurance approval when ready. A follow-up behavioral health visit will be scheduled 1?4 weeks postoperatively to assess psychological adjustment and screen for any concerns. Next appointment: 1-4 Weeks Post-op. Telehealth Telehealth Telehealth Platform: [facility] Location of provider rendering services: other (Home office. [place], [place]) Location of patient: address on file Patient Identification confirmed using: Name, : Yes Telehealth method: voice only Patient verbally consented to treatment: Yes Patient verbally consented to billing insurance company: Yes Patient informed of any privacy concerns related to visit: Yes Minutes spent on Phone/Video with Pt.: 55 Coding Level of Care Code Established Pt Tele Psytx >53 mins (77710) Patient Type Established Diagnoses Adjustment disorder F43.20 Pre-bariatric surgery psychological evaluation Z71.89 Additional Codes PHQ-9 - 42459 - PHQ-9 Billing: Yes ([id number]) Time Spent (min) 55
--- OUTSIDE RECORDS SUMMARY | 2025-02-22 09:35 | XMS_ITS | Encounter Summary ---
Author Organization [facility] Address [address] [place] [address] Care Team Providers Care Septic Tank Cleaner Name Role Phone Belle Hidalgo Unavailable Unavailable Vivek Sams MD Primary Care Provider Count Includes [facility], Pcp Primary Care Provider Unavailabl e Vivek Sams MD Primary Care Provider [phone] Encounter Details Date Type Department Care Team Description 11/07/2021 SCAN [facility] [address] [id number] Davey Garvey DPM [address] [address] Social History Tobacco Use Types Packs/Day Years Used Date Smoking Tobacco: Never Smokeless Tobacco: Never Alcohol Use Standard Drinks/Week Comments No 0 (1 standard drink = 0.6 oz pur e alcohol) Sex Assigned at Date Recorded Not on file Job Start Date Occupation Industry Not on file Not on file Not on file COVID-19 Exposure Response Date Recorded In the last 10 days, have yo u been in contact with someone who was confirmed or suspected to have Coronavirus/COVID-19? No / Unsure 10/23/2021 9:55 AM EDT documented as of this encounter Plan of Treatment Not on file documented as of this encounter Visit Diagnoses Not on filedocumented in this encounter Care Teams Septic Tank Cleaner Relationship Specialty Start Date End Date Sams, Vivek, MD [address] [place] [address] PCP - General Internal Medicine 07/16/21 11/25/21 [facility] [address] [place] [address] PCP - General Internal Medicine 11/26/21 08/05/22 Vivek Sams MD [address] [place] [address] PCP - General Internal Medicine 08/06/22 Belle Hidalgo 12/18/08 documented as of this encounter
--- OUTSIDE RECORDS SUMMARY | 2025-02-22 09:35 | XMS_ITS | Encounter Summary ---
Author Organization [facility] Address [address] [place] [address] Care Team Providers Care Regular Senior Care Provider Name Role Phone Belle Hidalgo Unavailable Unavailable Grace Mar MD Primary Care Provider Unav ailable Vivek Sams MD Primary Care Provider [phone] [facility] Primary Care Provider Unavailabl e Vivek Sams MD Primary Care Provider [phone] Reason for Visit * Reason Comments E-prescribe Rx Request Encounter Details Date Type Department Care Team Description 11/23/2019 Refill OBGYN - [address] [address] Kena Odonnell CNM E-prescribe Rx Request Social History Tobacco Use Types Packs/Day Years Used Date Smoking Tobacco: Never Smokeless Tobacco: Never Alcohol Use Standard Drinks/Week Comments No 0 (1 standard drink = 0.6 oz pur e alcohol) Sex Assigned at Date Recorded Not on file Job Start Date Occupation Industry Not on file Not on file Not on file documented as of this encounter Miscellaneous Notes * Telephone Encounter - Verónica Medel DO - 11/24/2019 12:55 PM EDT Refill sent * Telephone Encounter - Cecilia Alex R.N. - 11/24/2019 12:24 PM EDT Depo Rx for refill, has an appt pending on November 26. Needs to schedule an annual which is due in November. * Telephone Encounter - Richelle Marquezedelmira - 11/24/2019 9:21 AM EDT WHEN WAS THE PATIENTS LAST ANNUAL TUNNEL KILN REPAIRER EXAM? 11/29/18 Does patient have an upcoming appointment? Yes 11/27/19 for depo LM for annual (THE MEDICATION REQUESTED IS ON THE MED LIST ABOVE) Did you check the Pharmacy information above?: NO Indicate how soon the patient needs the script: BY THE END OF THE DAY Patient would like script to be: E-PRESCRIBED/FAXED TO PHARMACY Is the doctor here today?: NO Can the message wait until the doctor returns?: NO Has the patient been told that the prescription will not be filled until the end of the day? NO [facility] / Plan: [facility] / Product Type: MEDICAID RISK documented in this encounter Plan of Treatment Scheduled Orders Name Type Priority Associated Diagnoses Orde r Schedule MEDROXYPROGESTERONE ACETATE INJ Other Routine Encounter for surveillance of injectable contraceptive 4 Occurrences starting 11/24/2019 until 11/23/2020, 2 completed A THERAPEUTIC PROPHYLACTIC/DX INJECTION SUBQ/IM Immunization s/Injection Routine Encounter for surveillance of injectable contraceptive 4 Occurrences starting 11/24/2019 until 11/23/2020 documented as of this encounter Visit Diagnoses Diagnosis Encounter for surveillance of injectable contraceptive Surveillance of other previously prescribed contraceptive method documented in this encounter Care Teams Regular Senior Care Provider Relationship Specialty Start Date End Date Grace Mar MD PCP - General Internal Medicine 11/17/16 07/15/21 Vivek Sams MD [address] [facility] [place] [address] PCP - General Internal Medicine 07/16/21 11/25/21 [facility] [address] [place] [address] PCP - General Internal Medicine 11/26/21 08/05/22 [facility]ivek Sams MD [address] [facility] [place] [address] PCP - General Internal Medicine 08/06/22 Belle Hidalgo 12/18/08 documented as of this encounter
--- OUTSIDE RECORDS SUMMARY | 2025-02-22 09:35 | XMS_ITS | Encounter Summary ---
Author Organization [facility] Address [address] [place] [address] Care Team Providers Care Nps Name Role Phone Belle Hidalgo Unavailable Unavailable Vivek Sams MD Primary Care Provider [phone] [facility], Pcp Primary Care Provider Unavailabl e Vivek Sams MD Primary Care Provider [phone] Encounter Details Date Type Department Care Team Description 11/07/2021 Telephone [facility] [address] [phone] Davey Garvey DPM [address] [address] Social History Tobacco Use Types Packs/Day Years [...] on filedocumented in this encounter Care Teams Nps Relationship Specialty Start Date End Date Sams, Vivek, MD [address] [place] [address] PCP - General Internal Medicine 07/16/21 11/25/21 [facility] 305 [place] [address] PCP - General Internal Medicine 11/26/21 08/05/22 Vivek Sams MD [address] [place] [address] PCP - General Internal Medicine 08/06/22 Belle Hidalgo 12/18/08 documented as of this encounter
--- OUTSIDE RECORDS SUMMARY | 2025-02-22 09:35 | XMS_ITS | Encounter Summary ---
Author Organization [facility] Address [address] [place] [address] Care Team Providers Care Customer Service Cashier Name Role Phone Belle Hidalgo Unavailable Unavailable [facility], Pcp [facility] Vivek Pizarro MD Primary Care Provider [phone] Encounter Details Date Type Department Care Team Description 06/25/2022 Auto Service Instructor Report Medical Records [address] [place] [address] Alecia Love Social History Tobacco Use Types Packs/Day Years [...] suspected to have Coronavirus/COVID-19? No / Unsure 06/15/2022 2:37 PM EST documented as of this encounter Plan of Treatment Not on file documented as of this encounter Visit Diagnoses Not on filedocumented in this encounter Care Teams Customer Service Cashier Relationship Specialty Start Date End Date [facility], Pcp PCP - General Internal Medicine 11/26/21 08/05/22 Vivek Sams MD [address] [place] [address] PCP - General Internal Medicine 08/06/22 Belle Hidalgo 12/18/08 documented as of this encounter
--- OUTSIDE RECORDS SUMMARY | 2025-02-22 09:35 | XMS_ITS | Encounter Summary ---
[facility] Organization [facility] Address [address] [place] [address] Care Team Providers Care Awning Craftsman Name Role Phone Belle Hidalgo Unavailable Unavailable Grace Mar MD Primary Care Provider Unav ailable Vivek Sams MD Primary Care Provider [phone] [facility], Pcp Primary Care Provider Unavailabl e Vivek Sams MD Primary Care Provider Reason for Referral * EXTERNAL (Routine) - Authorized/Booked Specialty Diagnoses / Procedures Referred By Angie rosenthal Referred To Contact General Surgery Diagnoses Family history of breast cancer Procedures REFERRAL TO ADULT GENETICS Kena Odonnell CNM [address] [place] [address] Genetics, [address] [address] Referral ID Status Reason Start Date Expiration Date V isits Requested Visits Authorized SEE NOTE Authorized/B ooked 09/13/2019 12/14/2019 1 1 Reason for Visit * Reason Onset Date Comments 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 This order needs to be changed to an external order.I have pended you an external genetic testing order. Please review and signpended order. Thank you, Lucie Referrals Director Learning [facility] Referrals Department documented in this encounter Plan of Treatment Not on file documented as of this encounter Visit Diagnoses Diagnosis Family history of breast cancer- Primary Family history of malignant neoplasm of breast documented in this encounter Care Teams Awning Craftsman Relationship Specialty Start Date End Date Grace Mar MD PCP - General Internal Medicine 11/17/16 07/15/21 Vivek Sams MD [address] [place] [address] PCP - General Internal Medicine 07/16/21 11/25/21 [facility], [facility] [address] [facility] [place] [address] PCP - General Internal Medicine 11/26/21 08/05/22 Vivek Sams MD [facility] [place] [address] PCP - General Internal Medicine 08/06/22 Belle Hidalgo 12/18/08 documented as of this encounter
--- OUTSIDE RECORDS SUMMARY | 2025-02-22 09:35 | XMS_ITS | Encounter Summary ---
Author Organization [facility] Address [address] [place] [address] Care Team Providers Care Appliance Service Supervisor Name Role Phone Belle Hidalgo Unavailable Unavailable Vivek Sams MD Primary Care Provider [phone] [facility], Pcp Primary Care Provider Unavailabl e Vivek Sams MD Primary Care Provider [phone] Encounter Details Date Type Department Care Team Description 11/25/2021 Telephone [facility] [address] [phone] Davey Gravey DPM [address] [address] Social History Tobacco Use Types Packs/Day Years [...] suspected to have Coronavirus/COVID-19? No / Unsure 11/27/2021 3:06 PM EDT documented as of this encounter Miscellaneous Notes * Telephone Encounter - Marissa Feng - 11/25/2021 10:30 AM EDT Pt called requesting an extended RTW date original paperwork stated 11/14. Pt will be reevalutated on 11/27/21 Please contact pt when completed [phone] documented in this encounter Plan of Treatment Not on file documented as of this encounter Visit Diagnoses Not on filedocumented in this encounter Care Teams Appliance Service Supervisor Relationship Specialty Start Date End Date Vivek Sams MD [address] [place] [address] PCP - General Internal Medicine 07/16/21 11/25/21 [facility] [address] [place] [address] PCP - General Internal Medicine 11/26/21 08/05/22 Vivek Sams MD [address] [place] [address] PCP - General Internal Medicine 08/06/22 Belle Hidalgo 12/18/08 documented as of this encounter
--- OUTSIDE RECORDS SUMMARY | 2025-02-22 09:35 | XMS_ITS | Encounter Summary ---
Author Organization [facility] Address [address] [place] [address] Care Team Providers Care Mobile Equipment Operator Name Role Phone Belle Hidalgo Unavailable Unavailable Vivek Sams MD Primary Care Provider [phone] [facility], Pcp Primary Care Provider Unavailabl e Vivek Sams MD Primary Care Provider [phone] Encounter Details Date Type Department Care Team Description 09/26/2021 SCAN [facility] [address] [phone] Davey Garvey DPM [address] [address] Social History Tobacco Use Types Packs/Day Years Used Date Smoking Tobacco: Never Smokeless Tobacco: Never Alcohol Use Standard Drinks/Week Comments No 0 (1 standard drink = 0.6 oz pur e alcohol) Sex Assigned at Date Recorded Not on file Job Start Date Occupation Industry Not on file Not on file Not on file COVID-19 Exposure Response Date Recorded In the last month, have you been in contact with someone who was confirmed or suspected to have Coronavirus / COVID-19? No / Unsure 2021 9:54 AM EDT documented as of this encounter Plan of Treatment Not on file documented as of this encounter Visit Diagnoses Not on filedocumented in this encounter Care Teams Mobile Equipment Operator Relationship Specialty Start Date End Date Vivek Sams MD [address] [place] [address] PCP - General Internal Medicine 07/16/21 11/25/21 [facility] [address] [place] [address] PCP - General Internal Medicine 11/26/21 08/05/22 Vivek Sams MD [address] [place] [address] PCP - General Internal Medicine 08/06/22 Belle Hidalgo 12/18/08 documented as of this encounter
--- OUTSIDE RECORDS SUMMARY | 2025-02-22 09:35 | XMS_ITS | Encounter Summary ---
Author Organization [facility] Address [address] [place] [address] Care Team Providers Care Clay Thrower Name Role Phone Belle Hidalgo Unavailable Unavailable Vivek Sams MD Primary Care Provider [phone] [facility], Pcp Primary Care Provider Unavailabl e Vivek Sams MD Primary Care Provider [phone] Reason for Visit * Reason Onset Date Comments Note, Work 11/13/2021 Encounter Details Date Type Department Care Team Description 11/13/2021 Telephone [facility] [address] [phone] Davey Garvey DPM [address] [id number] Note, Work Social History Tobacco Use Types Packs/Day Years [...] AM EDT documented as of this encounter Miscellaneous Notes * Telephone Encounter - Davey Garvey DPM - 12/02/2021 8:12 AM EDT Can you call the patient back and see if this was resolved? I know she had paperwork filled at her last appointment * Telephone Encounter - Akiko Lakhani - 11/17/2021 9:22 AM EDT Spoke with Franklyn, she informed me that it only has to go to [facility] as her [employer] claim was closed and hasn't heard anything back. I will be faxing letter over. 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 Can you please speak with Dr. Garvey and see if he could write this letter for the patient? If this could please call the patient once completed. Thank you, Henny documented in this encounter Plan of Treatment Not on file documented as of this encounter Visit Diagnoses Not on filedocumented in this encounter Care Teams Clay Thrower Relationship Specialty Start Date End Date Vivek Sams MD [address] [place] [address] PCP - General Internal Medicine 07/16/21 11/25/21 [facility], Pcp [address] [place] [address] PCP - General Internal Medicine 11/26/21 08/05/22 Vivek Sams MD [address] [facility] [place] [address] PCP - General Internal Medicine 08/06/22 Belle Hidalgo 12/18/08 documented as of this encounter
--- OUTSIDE RECORDS SUMMARY | 2025-02-22 09:35 | XMS_ITS | Encounter Summary ---
Author Organization [facility] Address [address] [place] [address] Care Team Providers Care Surveying Crew Rodman Name Role Phone Belle Hidalgo Unavailable Unavailable Vivek Sams MD Primary Care Provider [phone] [facility], Pcp Primary Care Provider Unavailabl e Vivek Sams MD Primary Care Provider [phone] Encounter Details Date Type Department Care Team Description 08/08/2021 SCAN [facility] [address] [phone] Davey Garvey DPM [address] [address] Social History Tobacco Use Types Packs/Day Years Used Date Smoking Tobacco: Never Smokeless Tobacco: Never Alcohol Use Standard Drinks/Week Comments No 0 (1 standard drink = 0.6 oz pur e alcohol) Sex Assigned at Date Recorded Not on file Job Start Date Occupation Industry Not on file Not on file Not on file documented as of this encounter Plan of Treatment Not on file documented as of this encounter Visit Diagnoses Not on filedocumented in this encounter Care Teams Surveying Crew Rodman Relationship Specialty Start Date End Date Vivek Sams MD [address] [place] [address] PCP - General Internal Medicine 07/16/21 11/25/21 [facility], Pcp [address] [place] [address] PCP - General Internal Medicine 11/26/21 08/05/22 Vivek Sams MD [address] [place] [address] PCP - General Internal Medicine 08/06/22 Belle Hidalgo 12/18/08 documented as of this encounter
--- OUTSIDE RECORDS SUMMARY | 2025-02-22 09:35 | XMS_ITS | Encounter Summary ---
Author Organization [facility] Address [address] [place] [address] Care Team Providers Care Timber Skidder Name Role Phone Belle Hidalgo Unavailable Unavailable Grace Mar MD Primary Care Provider Unav ailable Vivek Sams MD Primary Care Provider [phone] [facility], Pcp Primary Care Provider Unavailabl e Vivek Sams MD Primary Care Provider [phone] Encounter Details Date Type Department Care Team Description 02/25/2021 Release of Information Medical Records [address] [place] [address] Abstract, Provider Social History Tobacco Use Types Packs/Day Years [...] have Coronavirus / COVID-19? No / Unsure 02/19/2021 9:51 AM EDT documented as of this encounter Plan of Treatment Not on file documented as of this encounter Visit Diagnoses Not on filedocumented in this encounter Care Teams Timber Skidder Relationship Specialty Start Date End Date Grace Mar MD PCP - General Internal Medicine 11/17/16 07/15/21 Vivek Sams MD [address] [place] [address] PCP - General Internal Medicine 07/16/21 11/25/21 [facility], Pcp [address] [facility] [place] [address] PCP - General Internal Medicine 11/26/21 08/05/22 Vivek Sams MD 305 [facility] [place] [address] PCP - General Internal Medicine 08/06/22 Belle Hidalgo 12/18/08 documented as of this encounter
--- OUTSIDE RECORDS SUMMARY | 2025-02-22 09:35 | XMS_ITS | Encounter Summary ---
Author Organization [facility] Address [address] [place] [address] Care Team Providers Care Dye Can Operator Name Role Phone Belle Hidalgo Unavailable Unavailable Vivek Sams MD Primary Care Provider [phone] [facility], Pcp Primary Care Provider Unavailabl e Vivek Sams MD Primary Care Provider [phone] Encounter Details Date Type Department Care Team Description 10/03/2021 Hospital Medical Records [address] [place] [address] Davey Garvey DPM [address] [place] [address] Social History Tobacco Use Types Packs/Day Years [...] on filedocumented in this encounter Care Teams Dye Can Operator Relationship Specialty Start Date End Date Vivek Sams MD [address] [place] [address] PCP - General Internal Medicine 07/16/21 11/25/21 [facility], Pcp [address] [facility] [place] [address] PCP - General Internal Medicine 11/26/21 08/05/22 Vivek Sams MD 305 [place] [address] PCP - General Internal Medicine 08/06/22 Belle Hidalgo 12/18/08 documented as of this encounter
--- OUTSIDE RECORDS SUMMARY | 2025-02-22 09:35 | XMS_ITS | Encounter Summary ---
Author Organization [facility] Address [address] [place] [address] Care Team Providers Care Postbed Stitcher Name Role Phone HidalgoBelle Unavailable Unavailable Grace Mar MD Primary Care Provider Unav ailable Vivek Sams MD Primary Care Provider [phone] [facility], [facility] Primary Care Provider Unavailabl e Vivek Sams MD Primary Care Provider [phone] Encounter Details Date Type Department Care Team Description 12/17/2016 Release of Information Medical Records [address] [place] [address] Abstract, Provider Social History Tobacco Use Types [...] on filedocumented in this encounter Care Teams Postbed Stitcher Relationship Specialty Start Date End Date Grace Mar MD PCP - General Internal Medicine 11/17/16 07/15/21 Vivek Sams MD [address] [place] [address] PCP - General Internal Medicine 07/16/21 11/25/21 [facility], Pcp [address] [place] [address] PCP - General Internal Medicine 11/26/21 08/05/22 Vivek Sams MD [address] [place] [address] PCP - General Internal Medicine 08/06/22 Belle Hidalgo 12/18/08 documented as of this encounter
--- OUTSIDE RECORDS SUMMARY | 2025-02-22 09:35 | XMS_ITS | Encounter Summary ---
Author Organization [facility] Address [address] [place] [address] Care Team Providers Care Associate Material Handler Name Role Phone Belle Hidalgo Unavailable Unavailable Grace Mar MD Primary Care Provider Unav ailable Vivek Sams MD Primary Care Provider [phone] [facility], [facility] Primary Care Provider Unavailabl e Vivek Sams MD Primary Care Provider [phone] Encounter Details Date Type Department Care Team Description 03/10/2019 In Mold Coater Report Medical Records [address] [place] [address] Elena Chapin Social History Tobacco Use Types Packs/Day Years [...] on filedocumented in this encounter Care Teams Associate Material Handler Relationship Specialty Start Date End Date Grace Mar MD PCP - General Internal Medicine 11/17/16 07/15/21 Vivek Sams MD [address] [place] [address] PCP - General Internal Medicine 07/16/21 11/25/21 [facility], [address] [address] PCP - General Internal Medicine 11/26/21 08/05/22 Vivek Sams MD [address] [place] [address] PCP - General Internal Medicine 08/06/22 Belle Hidalgo 12/18/08 documented as of this encounter
--- OUTSIDE RECORDS SUMMARY | 2025-02-22 09:36 | XMS_ITS | Encounter Summary ---
Author Organization [facility] Address [address] [place] [address] Care Team Providers Care Patient Care Technician Name Role Phone Belle Hidalgo Unavailable Unavailable [facility], Pcp Primary Care Provider Vivek Chavez MD Primary Care Provider [phone] Encounter Details Date Type Department Care Team Description 02/06/2022 SCAN [facility] [address] [phone] Davey Garvey DPM [address] [address] Social History Tobacco Use Types Packs/Day Years [...] suspected to have Coronavirus/COVID-19? No / Unsure 01/27/2022 2:55 PM EDT documented as of this encounter Plan of Treatment Not on file documented as of this encounter Visit Diagnoses Not on filedocumented in this encounter Care Teams Patient Care Technician Relationship Specialty Start Date End Date Community, Pcp PCP - General Internal Medicine 11/26/21 08/05/22 Vivek Sams MD [address] [place] [address] PCP - General Internal Medicine 08/06/22 Belle Hidalgo 12/18/08 documented as of this encounter
--- OUTSIDE RECORDS SUMMARY | 2025-02-22 09:36 | XMS_ITS | Encounter Summary ---
[facility] Address [address] [place] [address] Care Team Providers Care Etcher Electrolytic Name Role Phone Troy Garza MD Primary Care Provider Belle Null Unavailable Unavailable Grace Mar MD Primary Care Provider Unav ailable Vivek Sams MD Primary Care Provider [phone] [facility], Pcp Primary Care Provider Unavailabl e Vivek Sams MD Primary Care Provider [phone] Encounter Details Date Type Department Care Team Description 12/21/2011 [facility] Medical Records [address] [place] [id number] [place] [address] Social History Tobacco Use Types Packs/Day Years [...] on filedocumented in this encounter Care Teams Etcher Electrolytic Relationship Specialty Start Date End Date Troy Garza MD PCP - General 12/18/08 11/16/16 Grace Mar MD PCP - General Internal Medicine 11/17/16 07/15/21 Vivek Sams MD [address] [place] [address] [address] PCP - General Internal Medicine 07/16/21 11/25/21 [facility], Pcp [address] [place] [address] PCP - General Internal Medicine 11/26/21 08/05/22 Vivek Sams MD [address] [place] [address] PCP - General Internal Medicine 08/06/22 Belle Hidalgo 12/18/08 documented as of this encounter
--- OUTSIDE RECORDS SUMMARY | 2025-02-22 09:36 | XMS_ITS | Encounter Summary ---
[facility] Address [address] [place] [address] Care Team Providers Care Senior Developer Name Role Phone Hidalgo Belle HennessyRhianna Unavailable Unavailable Vivek Sams MD Primary Care Provider [phone] Reason for Visit * Reason Onset Date Comments Letter 03/30/2023 Encounter Details Date Type Department Care Team Description 03/30/2023 Telephone Adult Medicine [address] [address] Vivek Sams MD [address] [place] [address] Letter Social History Tobacco Use Types Packs/Day Years [...] encounter Miscellaneous Notes * Telephone Encounter - Duran Bonilla - 03/30/2023 12:15 PM EDT Letter requested for: TB test and PE 08/25/22 Reason for letter: for work to verify that pt is healthy and up to date Specific notations needed in body of letter: Verify that TB Test and PE was done Date needed for completion: MAKAYLA When completed: Fax to other office/MD at fax # [phone] [facility] ATTN: Human Resources documented in this encounter Plan of Treatment Not on file documented as of this encounter Visit Diagnoses Not on filedocumented in this encounter Care Teams Senior Developer Relationship Specialty Start Date End Date Vivek Sams MD [address] [place], [place] [address] PCP - General Internal Medicine 08/06/22 Belle Hidalgo 12/18/08 documented as of this encounter
--- OUTSIDE RECORDS SUMMARY | 2025-02-22 09:36 | XMS_ITS | Encounter Summary ---
Author Organization [facility] Address [address] [place] [address] Care Team Providers Care Senior Health Educator Name Role Phone Belle Hidalgo Unavailable Unavailable [facility], Pcp Primary Care Provider Vivek Chavez MD Primary Care Provider [phone] Encounter Details Date Type Department Care Team Description 02/04/2022 SCAN [facility] [address] [phone] Davey Garvey DPM [address] [address] Social History Tobacco Use Types Packs/Day Years [...] filedocumented in this encounter Care Teams Senior Health Educator Relationship Specialty Start Date End Date Community, Pcp PCP - General Internal Medicine 11/26/21 08/05/22 Vivek Sams MD [address] [place] [address] PCP - General Internal Medicine 08/06/22 Belle Hidalgo 12/18/08 documented as of this encounter
--- OUTSIDE RECORDS SUMMARY | 2025-02-22 09:36 | XMS_ITS | Encounter Summary ---
[facility] Organization [facility] Address [address] [place] [address] Care Team Providers Care Enterprise Project Manager Name Role Phone Troy Garza MD Primary Care Provider Belle Null Unavailable Unavailable Grace Mar MD Primary Care Provider Unav ailable Vivek Sams MD Primary Care Provider [phone] [facility], Pcp Primary Care Provider Unavailabl e Vivek Sams MD Primary Care Provider [phone] Encounter Details Date Type Department Care Team Description 08/23/2015 Release of Information Medical Records [address] [place] [address] Abstract, Provider Social History Tobacco Use Types [...] on filedocumented in this encounter Care Teams Enterprise Project Manager Relationship Specialty Start Date End Date Troy Garza MD PCP - General 12/18/08 11/16/16 Grace Mar MD PCP - General Internal Medicine 11/17/16 07/15/21 Vivek Sams MD [address] [place] [address] PCP - General Internal Medicine 07/16/21 11/25/21 [facility], Pcp [address] [place] [address] PCP - General Internal Medicine 11/26/21 08/05/22 Vivek Sams MD [address] [place] [address] PCP - General Internal Medicine 08/06/22 Belle Hidalgo 12/18/08 documented as of this encounter
--- OUTSIDE RECORDS SUMMARY | 2025-02-22 09:36 | XMS_ITS | Encounter Summary ---
Author Organization [facility] Address [address] [place] [address] Care Team Providers Care Photograph Enlarger Name Role Phone Belle Hidalgo Unavailable Unavailable [facility], Pcp Primary Care Provider Vivek Chavez MD Primary Care Provider [phone] Encounter Details Date Type Department Care Team Description 02/04/2022 SCAN [facility] [address] [phone] Davey Garvey DPM [address] [address] Social History Tobacco Use Types Packs/Day Years [...] on filedocumented in this encounter Care Teams Photograph Enlarger Relationship Specialty Start Date End Date Community, Pcp PCP - General Internal Medicine 11/26/21 08/05/22 Vivek Sams MD [address] [place] [address] PCP - General Internal Medicine 08/06/22 Belle Hidalgo 12/18/08 documented as of this encounter
--- OUTSIDE RECORDS SUMMARY | 2025-02-22 09:36 | XMS_ITS | Encounter Summary ---
Author Organization [facility] Address [address] [place] [address] Care Team Providers Care Beauty Consultant Name Role Phone Troy Garza MD Primary Care Provider Belle Null Unavailable Unavailable Grace Mar MD Primary Care Provider Unav ailable Vivek Sams MD Primary Care Provider [phone] [facility], Pcp Primary Care Provider Unavailabl e Vivek Sams MD Primary Care Provider [phone] Reason for Visit * Reason Onset Date Comments TEST RESULTS 12/27/2013 Encounter Details Date Type Department Care Team Description 12/27/2013 Telephone OBGYN - [facility] [address] [place] [address] Derrell Carranza MD TEST RESULTS Social History Tobacco Use Types Packs/Day Years [...] encounter Miscellaneous Notes * Telephone Encounter - Laura Bazan M.A. - 12/27/2013 9:43 AM EDT Message left for pt to call back [phone] * Telephone Encounter - Laura Bazan M.A. - 12/27/2013 9:43 AM EDT Message copied by LAURA BAZAN M.A. on WedDec 27, 2013 9:43 AM ------ Message from: DERRELL SYED Created: WedDec 26, 2013 5:34 PM Tell pt all results. Telephone Information: Work Phone Not on file. ------ documented in this encounter Plan of Treatment Not on file documented as of this encounter Visit Diagnoses Not on filedocumented in this encounter Care Teams Beauty Consultant Relationship Specialty Start Date End Date Troy Garza MD PCP - General 12/18/08 11/16/16 Grace Mar MD PCP - General Internal Medicine 11/17/16 07/15/21 Vivek Sams MD [address] [place] [address] PCP - General Internal Medicine 07/16/21 11/25/21 [facility] [address] [place] [address] PCP - General Internal Medicine 11/26/21 08/05/22 Vivek Sams MD [address] [place] [address] PCP - General Internal Medicine 08/06/22 Belle Hidalgo 12/18/08 documented as of this encounter
--- OUTSIDE RECORDS SUMMARY | 2025-02-22 09:36 | XMS_ITS | Clinical Summary ---
Author Organization 175 [facility] Address [address] [place] [address] Phone Care Team Providers Care Hemodialysis Lab Technician Name Role Phone Vivek Sams MD Primary Care Provider [phone] Allergies No known active allergies Medications ALBUTEROL [...] HOURS. 9 tablet 1 01/11/20 25 Active amoxicillin (AMOXIL) 500 mg capsule Take 1 capsule (500 mg total) by mouth every 12 (twelve) hours. 02/07/20 25 Active omeprazole (PriLOSEC) [address] capsule Take 1 capsule (40 mg total) by mouth 1 (one) time each day. 02/07/20 25 Active thiamine 100 mg tablet Take 1 tablet (100 mg total) by mouth 1 (one) time each day. 02/07/20 25 Active EPINEPHrine (EPIPEN) 0.3 mg/0.3 mL injection Inject 0.3 mL (0.3 mg total) under the skin if needed. Active clotrimazole (LOTRIMIN) 1 % cream Apply 1 Application topically 2 (two) times a day. APPLY TO AFFECTED AREA 12/05/19 25 Active clarithromycin (BIAXIN) 500 mg tablet Take 1 tablet (500 mg total) by mouth every 12 (twelve) hours. 02/07/20 25 Active levocetirizine (XYZAL) 5 mg tablet Take 1 tablet (5 mg total) by mouth 1 (one) time each day. 12/09/19 25 Active Zepbound 5 mg/0.5 mL injection Inject 0.5 mL (5 mg total) under the skin every 7 (seven) days. 02/09/20 25 Active phentermine 30 mg capsule Take 1 capsule (30 mg total) by mouth 1 (one) time each day before breakfast. Max Daily Amount: 30 mg 30 each 01/11/20 25 025 Discontin ued(Thera py completed ) Zepbound 2.5 mg/0.5 mL injection Inject 0.5 mL (2.5 mg total) under the skin every 7 (seven) days. 01/12/20 25 025 Discontin ued(Dose adjustmen t) Active Problems Problem Noted Date Diagnosed Date Morbid obesity with BMI of 4 0.0-44.9, adult ([facility] V24, [facility] V28) 05/18/[address] 03/17/2024 Overview (05/18/2024): Inserted 02/2024 Flat feet, bilateral 03/20/2020 Encounters Date Type Department Care Team Description 02/15/2025 8:45 AM EDT Office Visit Internal Medicine - [address] [address] Vivek Sams MD Class 2 obesity due to excess calories without serious comorbidity with body mass index (BMI) of 39.0 to 39.9 in adult (Primary Dx) 01/10/2025 8:30 AM EDT Office Visit Internal Medicine - [address] [address] Vivek Sams MD Encounter for weight management (Primary Dx); Class 3 severe obesity due to excess calories without serious comorbidity with body mass index (BMI) of 40.0 to 44.9 in adult ([facility] V24, [facility] V28) 12/12/2024 9:00 AM EDT Office Visit Internal Medicine - [address] [address] Vivek Sams MD Class 3 severe obesity due to excess calories without serious comorbidity with body mass index (BMI) of 45.0 to 49.9 in adult ([facility] V24, [facility] V28) (Primary Dx) from Last 3 Months Immunizations Name Administration Dates Next Due DTP 10/11/1995, 4,11/09/1993,1990 [id number] (Pentacel) 2mo to less than 5yo 01/09/1994,11/09/1993,1990 [...] Comments OTHER SURGICAL HISTORY 2021 Bilateral PROCEDURE: AL DECOMPRESSION PLANTAR DIGITAL NERVE; COMMENT: 10/03/2021 (Left); [...] for your loved ones. For example, child adolescent psychiatrist or elderly care for an older adult? [...] Sign Reading Time Taken Comments Blood Pressure 123/85 02/15/2025 8:47 AM EDT A Pulse 93 02/15/2025 8:47 AM EDT Temperature - - Respiratory Rate - - Oxygen Saturation - - Inhaled Oxygen Concentration - - Weight 107 kg (234 lb 12.8 oz) 02/15/2025 8:47 A M EDT Height 165.1 cm (5' 5 ) 02/15/2025 8:47 AM EDT Body Mass Index 39.07 02/15/2025 8:47 AM EDT Plan of Treatment Upcoming Encounters Date Type Department Care Team (Late st Contact Info) Description 08/21/2025 8:00 AM EST [facility] [address] [facility] [place] [address] Vivek Sams MD [address] [place] [address] Health Maintenance Due Date Last Done Comments [...] with BMI of 40.0-44.9, adult (CMS/HCC V24, [facility] V28) HM HPV Routine 02/25/2024 from Last 3 Months or Most Recently Relevant to Health Maintenance Results * HIV 1,2 antibody, p24 antigen with reflex to differentiation (08/15/2024 1:13 PM EST) Pathologist [facility] HIV Combo AB/AG Negative Negative LAB CHEMISTRY METHOD 08/15/2024 5:57 PM EST [facility] Blood Venous blood specimen / Unknown Venipuncture / Unknown 08/15/2024 1:13 PM EST 08/15/2024 1:13 PM EST Narrative [facility] - 08/15/2024 5:57 PM EST [...] MD LAB BLOOD ORDERABLES Final Resu lt [facility] [address] [place] [address], [place] [phone] * Lipid panel with reflex to direct LDL (08/15/2024 1:13 PM EST) Pathologist [facility] Cholesterol 149 0 - 200 mg/dL LAB CHEMISTRY METHOD 08/15/2024 5:09 PM EST [facility] Triglycerides 110 0 - 150 mg/dL LAB CHEMISTRY METHOD 08/15/2024 5:09 PM EST [facility] HDL 41 >=40 mg/dL LAB CHEMISTRY METHOD 08/15/2024 5:09 PM [facility] LDL Calculated 86 0 - 100 mg/dL LAB CHEMISTRY METHOD 08/15/2024 5:09 PM [facility] VLDL Cholesterol Bull 22 mg/dL LAB CHEMISTRY METHOD 08/15/2024 5:09 PM [facility] Non HDL Chol. (LDL+VLDL) 108 <145 mg/dL LAB CHEMISTRY METHOD 08/15/2024 5:09 PM [facility] Chol/HDL Ratio 3.6 0.0 - 4.4 LAB CHEMISTRY METHOD 08/15/2024 5:09 PM [facility] Blood Venous blood specimen / Unknown Venipuncture / Unknown 08/15/2024 1:13 PM EST 08/15/2024 1:13 PM EST us Vivek Sams MD LAB BLOOD ORDERABLES Final Resu lt [facility] [address] [place] [address], [place] [phone] * Hepatitis panel, acute with reflex to confirmation (08/15/2024 1:13 PM EST) Hepatitis B Surface Ag Negative Negative LAB CHEMISTRY METHOD 08/15/2024 6:40 PM [facility] Hepatitis A Antibody IgM Negative Negative LAB CHEMISTRY METHOD 08/15/2024 6:40 PM EST [facility] Hep B Core IgM Negative Negative LAB CHEMISTRY METHOD 08/15/2024 6:40 PM EST [facility] Hepatitis C Antibody Negative Negative LAB CHEMISTRY METHOD 08/15/2024 6:40 PM [facility] Blood Venous blood specimen / Unknown Venipuncture / Unknown 08/15/2024 1:13 PM EST 08/15/2024 1:13 PM EST us Vivek Sams MD LAB BLOOD ORDERABLES Final Resu lt [facility] [address] [place] [address], [place] [phone] * Cervical Cancer Screening: HPV (02/25/2024) [facility] Cervical Cancer Screening: HPV negative, abstracted Historical Provider HEALTH MAINTENANCE Final Result from Last 3 Months or Most Recently Relevant to Health Maintenance Insurance [facility] [employer] Care Teams Hemodialysis Lab Technician Relationship Specialty Start Date End Date Vivek Sams MD [address] [place] [id number] PCP - General 08/06/22
--- OUTSIDE RECORDS SUMMARY | 2025-02-22 09:36 | XMS_ITS | Encounter Summary ---
Author Organization [facility] Address [address] [place] [address] Care Team Providers Care Wedding Decorator Name Role Phone Troy Garza MD Primary Care Provider Belle Null Unavailable Unavailable Grace Mar MD Primary Care Provider Unav ailable Vivek Sams MD Primary Care Provider [phone] [facility], Pcp Primary Care Provider Unavailabl e Vivek Sams MD Primary Care Provider [phone] Encounter Details Date Type Department Care Team Description 10/01/2015 Zika Virus Medical Records [address] [place] [id number] Abstract, Provider Social History Tobacco Use Types [...] on filedocumented in this encounter Care Teams Wedding Decorator Relationship Specialty Start Date End Date Troy Garza MD PCP - General 12/18/08 11/16/16 Grace Mar MD PCP - General Internal Medicine 11/17/16 07/15/21 Vivek Smas MD [address] [place] [address] PCP - General Internal Medicine 07/16/21 11/25/21 [facility], Pcp [address] [place] [address] PCP - General Internal Medicine 11/26/21 08/05/22 Vivek Sams MD [address] [place] [address] PCP - General Internal Medicine 08/06/22 Belle Hidalgo 12/18/08 documented as of this encounter
== END 2025-02-22 09:30 | disposition home or self-care (01) ==
LOC: HO.HBST 08:49
PROVIDERS: PCP Internal Medicine; Visit Provider Counselor Mental Health
DX: F43.20 Adjustment disorder, unspecified (principal); Z71.89 Other specified counseling
CPT/HCPCS: 90837

== ENCOUNTER 2025-03-06 08:28 | Outpatient (REF) | payer OTHER, SELFPAY ==
--- NOTE | ~2025-03-06 | US_ITS ---
EXAMINATION: US ABDOMEN COMPLETE WITH LIVER ELASTOGRAPHY HISTORY: E66.01 - Morbid (severe) obesity due to excess calories TECHNIQUE: Real-time grayscale ultrasound imaging of the abdomen was performed and images were reviewed. COMPARISON: There are no prior studies available for comparison. FINDINGS: Liver: The right lobe of the liver measures 12.8 cm in size. The left lobe of the liver measures 6.7 cm in size. The liver demonstrates normal homogeneous echotexture. There is a 2.5 x 1.6 x 1.9 cm echogenic lesion in the left lobe which may represent a hemangioma. There is a 1.4 x 1.5 x 1.3 cm cyst adjacent to the gallbladder. No intrahepatic biliary ductal dilatation is identified. There is normal hepatopedal flow in the portal vein. Ultrasound elastography of the liver was performed with 10 separate measurements of the liver parenchyma with the patient in the supine position. Measurements were obtained approximately 2 cm below Tyrell's capsule and perpendicular to the capsule. The median shear wave velocity is 0.98 m/s. The interquartile range/median (IQR/median) is 0.19. Gallbladder and biliary tree: The gallbladder is unremarkable, without evidence of calculi, wall thickening, or pericholecystic fluid. There is no sonographic Engel sign. The common bile duct is normal in caliber measuring 3 mm. Kidneys: The right kidney measures 9.5 cm in length. The left kidney measures 9.1 cm in length. The kidneys are unremarkable, without evidence of masses, hydronephrosis, or calculi. Pancreas: The pancreatic head, neck, and body are unremarkable. The pancreatic tail is obscured by bowel gas. Spleen: The spleen is normal in size and contour, measuring 9.3 cm in length. There is a 1.5 x 1.2 x 1.4 cm splenule. Abdominal aorta and inferior vena cava: The visualized portions of the abdominal aorta and inferior vena cava are normal in caliber. There is no free fluid in the abdomen. US/US abdomen comp w elastography IMPRESSION: 2.5 x 1.6 x 1.9 cm echogenic lesion in the left lobe of liver which may represent a hemangioma. This could be confirmed with MRI. The median shear wave velocity in the liver is 0.98 m/s, corresponding to a median liver stiffness of 2.9 kPa. The IQR/median value is 0.19. This is indicative of a quality data set. Findings are indicative of a normal elastography value with a low likelihood of severe fibrosis or cirrhosis. REFERENCE: Society of Radiologists in Ultrasound Liver Stiffness Thresholds (2020): LIVER STIFFNESS THRESHOLDS: *Shear wave velocity less than 1.3 m/s (Liver Stiffness equal or less than 5 kPa): High probability of being normal. *Shear wave velocity less than 1.7 m/s (Liver Stiffness less than 9 kPa): In the absence of other known clinical signs, rules out compensated advanced chronic liver disease. *Shear wave velocity between 1.7-2.1 m/s (Liver Stiffness 9-13 kPa): Suggestive of compensated advanced chronic liver disease but need further test for confirmation. *Shear wave velocity between 2.1-2.4 m/s (Liver Stiffness 13-17 kPa): Rules in compensated advanced chronic liver disease. *Shear wave velocity greater than 2.4 m/s (Liver Stiffness over 17 kPa): Suggestive of clinically significant portal hypertension. QUALITY OF DATA SET: *IQR/Median value equal or less than 0.30 implies a quality data set. *IQR/Median value over 0.30 implies a poor quality data set. SIGNIFICANT CHANGE FROM PRIOR EXAM: Significant change if liver stiffness measurement is 10% or greater from prior exam. OTHER CONSIDERATIONS: The stage of liver fibrosis may be overestimated in the setting of acute hepatitis, liver inflammation, elevated liver function tests, hepatic vascular congestion, obstructive cholestasis, non-fasting state, and infiltrative diseases such as amyloidosis and lymphoma. In some patients with NAFLD, the liver stiffness thresholds for compensated advanced chronic liver disease may be lower. In causes other than viral hepatitis and NAFLD, liver stiffness thresholds are not well established. Electronically signed by: Jaden Kathleen MD 03/06/2025 09:42 AM EDT
--- OUTSIDE RECORDS SUMMARY | 2025-03-06 09:28 | XMS_ITS | Clinical Summary ---
Author Organization 175 [facility] Address [address] [place] [address] Phone Care Team Providers Care Project Inspector Name Role Phone Vivek Sams MD Primary Care Provider [phone] Allergies No known active allergies Medications ALBUTEROL [...] obesity with BMI of 4 0.0-44.9, adult ([facility] V24, [facility] V28) 05/18/[address] 03/17/2024 Overview (05/18/2024): Inserted 02/2024 Flat feet, bilateral 03/20/2020 Encounters Date Type Department Care Team Description 02/15/2025 8:45 AM EDT Office Visit Internal Medicine - [address] [address] Vivek Sams MD Class 2 obesity due to excess calories without serious comorbidity with body mass index (BMI) of 39.0 to 39.9 in adult (Primary Dx) 01/10/2025 8:30 AM EDT Office Visit Internal Medicine - [address] [address] Vivek Sams MD Encounter for weight management (Primary Dx); Class 3 severe obesity due to excess calories without serious comorbidity with body mass index (BMI) of 40.0 to 44.9 in adult ([facility] V24, [facility] V28) 12/12/2024 9:00 AM EDT Office Visit Internal Medicine - [address] [address] Vivek Sams MD Class 3 severe obesity due to excess calories without serious comorbidity with body mass index (BMI) of 45.0 to 49.9 in adult ([facility] V24, [facility] V28) (Primary Dx) from Last 3 Months Immunizations Name Administration Dates Next Due DTP 10/11/1995, 4,11/09/1993,1990 [id number] (Pentacel) 2mo to less than 5yo 01/09/1994,11/09/1993,1990 [...] Comments OTHER SURGICAL HISTORY 2021 Bilateral PROCEDURE: ID DECOMPRESSION PLANTAR DIGITAL NERVE; COMMENT: 10/03/2021 (Left); [...] care for your loved ones. For example, special needs child caregiver or elderly care for an [...] AM EST [facility] [address] [facility] [place] [address] Vivek Sams MD [address] [place] [address] Health Maintenance Due Date Last Done Comments [...] with BMI of 40.0-44.9, adult (CMS/HCC V24, [facility] V28) HM HPV Routine 02/25/2024 from Last 3 Months or Most Recently Relevant to Health Maintenance Results * HIV 1,2 antibody, p24 antigen with reflex to differentiation (08/15/2024 1:13 PM EST) Pathologist [facility] HIV Combo AB/AG Negative Negative LAB CHEMISTRY METHOD 08/15/2024 5:57 PM EST [facility] Blood Venous blood specimen / Unknown Venipuncture / Unknown 08/15/2024 1:13 PM EST 08/15/2024 1:13 PM EST Narrative [facility] - 08/15/2024 5:57 PM [...] MD LAB BLOOD ORDERABLES Final Resu lt [facility] [address] [place] [address], [place] [phone] * Lipid panel with reflex to direct LDL (08/15/2024 1:13 PM EST) Pathologist [facility] Cholesterol 149 0 - 200 mg/dL LAB CHEMISTRY METHOD 08/15/2024 5:09 PM EST [facility] Triglycerides 110 0 - 150 mg/dL LAB CHEMISTRY METHOD 08/15/2024 5:09 PM EST [facility] HDL 41 >=40 mg/dL LAB CHEMISTRY METHOD 08/15/2024 5:09 PM [facility] LDL Calculated 86 0 - 100 mg/dL LAB CHEMISTRY METHOD 08/15/2024 5:09 PM [facility] VLDL Cholesterol Bull 22 mg/dL LAB CHEMISTRY METHOD 08/15/2024 5:09 PM [facility] Non HDL Chol. (LDL+VLDL) 108 <145 mg/dL LAB CHEMISTRY METHOD 08/15/2024 5:09 PM [facility] Chol/HDL Ratio 3.6 0.0 - 4.4 LAB CHEMISTRY METHOD 08/15/2024 5:09 PM [facility] Blood Venous blood specimen / Unknown Venipuncture / Unknown 08/15/2024 1:13 PM EST 08/15/2024 1:13 PM EST us Vivek Sams MD LAB BLOOD ORDERABLES Final Resu lt [facility] [address] [place] [address], [place] [phone] * Hepatitis panel, acute with reflex to confirmation (08/15/2024 1:13 PM EST) Hepatitis B Surface Ag Negative Negative LAB CHEMISTRY METHOD 08/15/2024 6:40 PM [facility] Hepatitis A Antibody IgM Negative Negative LAB CHEMISTRY METHOD 08/15/2024 6:40 PM EST [facility] Hep B Core IgM Negative Negative LAB CHEMISTRY METHOD 08/15/2024 6:40 PM EST [facility] Hepatitis C Antibody Negative Negative LAB CHEMISTRY METHOD 08/15/2024 6:40 PM [facility] Blood Venous blood specimen / Unknown Venipuncture / Unknown 08/15/2024 1:13 PM EST 08/15/2024 1:13 PM EST us Vivek Sams MD LAB BLOOD ORDERABLES Final Resu lt [facility] [address] [place] [address], [place] [phone] * Cervical Cancer Screening: HPV (02/25/2024) [facility] Cervical Cancer Screening: HPV negative, abstracted Historical Provider HEALTH MAINTENANCE Final Result from Last 3 Months or Most Recently Relevant to Health Maintenance Insurance [facility] [employer] Care Teams Project Inspector Relationship Specialty Start Date End Date Vivek Sams MD [address] [place] [id number] PCP - General 08/06/22
== END 2025-03-06 08:29 | disposition home or self-care (01) ==
LOC: HO.US 08:28
PROVIDERS: PCP Internal Medicine; Visit Provider Surgery
DX: E66.01 Morbid (severe) obesity due to excess calories (principal); J45.909 Unspecified asthma, uncomplicated
CPT/HCPCS: 76700; 76981

== ENCOUNTER → 2025-03-06 08:32 | Outpatient (BNV) | payer OTHER, SELFPAY | PROVIDERS: PCP Internal Medicine; Visit Provider Radiology Diagnostic Radiology | DX: E66.01 Morbid (severe) obesity due to excess calories (principal); K76.89 Other specified diseases of liver | CPT/HCPCS: 76700 ==

== ENCOUNTER 2025-03-08 09:06 | Outpatient (REF) | payer OTHER, SELFPAY | END 2025-03-08 09:07 | disposition home or self-care (01) | LOC: HO.LNP 09:06 | PROVIDERS: Surgery; PCP Internal Medicine; Visit Provider Physician Assistant Surgical | DX: E66.01 Morbid (severe) obesity due to excess calories (principal); J45.909 Unspecified asthma, uncomplicated | CPT/HCPCS: 83013 ==

== ENCOUNTER 2025-03-19 08:15 | Outpatient (AMB) | payer OTHER, SELFPAY ==
--- NOTE | 2025-03-18 23:10 | A.OFFVIS_ITS ---
VS Expanded 03/18/25 23:11 Height 5 ft 5 in Weight 215 lb 4 oz BMI 35.8 Body Fat % 45.6 Body Fat Mass 96.9 Fat Free Mass 118.6 Visceral Fat Rating 18 Body Water % 37.7 Body Water Mass 81.2 Basal Metabolic Rate/Score 1,529 Intake Visit Reasons: TV Pre Op LSG 04/03/25 Allergies No Known Allergies Allergy (Verified 03/18/25 23:13) Medication List - Last Reconciled 03/18/25 by Papito Hernandez MD albuterol sulfate 90 mcg/actuation (Ventolin HFA) 2 puffs inhalation Q6H PRN budesonide-formoterol 160-4.5 mcg/actuation (Symbicort) 2 puffs inhalation BID clotrimazole 2% (Clotrimazole-3) 2 appful vaginal BEDTIME levocetirizine 5 mg PO QPM PRN ondansetron 4 mg PO Q12H pantoprazole 40 mg PO DAILY polyethylene glycol 3350 17 grams PO DAILY sucralfate 10 mL PO BID sumatriptan succinate 50 mg PO Q2-4H PRN thiamine HCl (vitamin B1) 100 mg PO DAILY tirzepatide (weight loss) (Zepbound) 5 mg (0.5 mL) subcut QWEEK vitamin A palmitate 3,000 mcg PO DAILY HPI HPI TV Pre Op LSG 04/03/25: Details: Start time: 2pm, End time: 2.30pm ?I spent 25 minutes speaking with the patient on the phone plus an additional 5 minutes reviewing and updating records for a total of 30 minutes HPI Comments Details: Overall weight loss: 47.3lbs, or 18% TBWL Is doing 2 8oz premade Premier shakes, 2.5 Fit Crunch protein bars and one meal (8 forks each) Exercise: stationary bike for 300 veronika x7/wk [facility] Medical History (Updated 03/18/25 @ 23:18 by Papito Hernandez MD) BMI 35.0-35.9,adult Migraines Asthma Morbid obesity Surgical History S/P foot surgery, right S/P foot surgery, left Family History Mother No problems noted. Father Heart failure Gout Son No problems noted. Son Asthma Chronic headaches Daughter ADHD Epilepsy Social History Alcohol intake: current Alcohol intake frequency: holidays/special occasions only Patient Tobacco Use Status: Never used Tobacco Physical Exam Vital Signs: BMI result Body Mass Index 35.8 Telehealth Telehealth Telehealth Platform: Telephone Location of provider rendering services: practice address Location of patient: address on file Patient Identification confirmed using: Name, : Yes Telehealth method: voice only Patient verbally consented to treatment: Yes Patient verbally consented to billing insurance company: Yes Patient informed of any privacy concerns related to visit: Yes Minutes spent on Phone/Video with Pt.: 30 Assessment & Plan Assessment & Plan (1) Obesity: Code(s): E66.9 - Obesity, unspecified Category: Medical Qualifiers: Body mass index: BMI 35.0-35.9 Obesity classification: adult class 2 (BMI 35 - 39.9) Obesity type: due to excess calories Serious obesity comorbidity presence: with serious comorbidity Qualified Code(s): E66.812 - Obesity, class 2; E66.01 - Morbid (severe) obesity due to excess calories; Z68.35 - Body mass index [BMI] 35.0-35.9, adult Plan: 1.? Plan for lap sleeve gastrectomy including upper GI endoscopy. All tests has been completed and reviewed and the patient is cleared for the surgery. ?If diaphragmatic or ventral hernias are present at time of surgery, these will be repaired laparoscopically as well. The surgery does not replace the need to change your lifestlyle which is the cause of the obesity problem. The surgery provides the motivation to try again to change your lifestyle, it reduces the appetite and make the transition to a better lifestyle easier and doubles the amount of weight you would lose compared to doing the lifestyle change without the surgery. You will need to be on a liquid diet with protein shakes for 2 weeks before surgery to maximize weight loss and boost your nutritional status to recover better from surgery and also for the first two weeks after surgery to let the stomach heal before we introduce other foods. After the first 2 weeks we will introduce protein bars and soft foods like scrambled eggs, cottage cheese and yogurt and after the 6th week will introduce meat, fish and cooked vegetables in small amounts. Over time you should be able to eat everything in small amounts. Side effects like nausea, vomiting, heartburn or abdominal pain are not common in the practice unless you are not following in the practice. This operation requires lifetime commitment to following in our practice and communication with me. You will much less weight and experience side effects if you don?t communicate or not following in the practice. Complications are rare and in our practice is about 1/10 of the national average. However, you can develop bleeding that may require transfusion (hasn?t happened for year in the practice), you may from complications (we did not have any deaths in the practice) and infections. Infections are usually a result of breakdown in communication or not understanding or following directions correctly. They are difficult to treat, they can happen during the first 6 weeks, they may require to be in the hospital for weeks or even months, not being able to eat by mouth and you may have drains and surgeries to try and correct the issue. Other risks and complications include possible conversion to an open procedure, leaks, small bowel obstruction, blood clots, cardiac, or pulmonary complications, as truck terminal manager complications such as ulcers, insufficient weight loss and vitamin deficiencies. So far she has proven to be an excellent communicator and very compliant with all our directions accomplishing a great weight loss. I believe that she is an excellent candidate and she is ready. 2. Preop prescriptions were provided and explained the purpose of each one. Need to be purchased preop. Start Pantoprazole now as you get it from the pharmacy, 1 pill per day. Sucralfate and Zofran are for after surgery as needed. 3. Bowel prep: please do 7 packets ?of Miralax mixing each one with a an 8oz glass of water, crystal light, gatorade zero, or propel ?on 04/01/25 and the same amount on 04/02/25. The Miralax you begin with one packet at a time in 8oz water or crystal light, gatorade zero, or propel ?as early in the day as you can and you do them back to back until you finish them. Continue the protein shakes during? the bowel prep. 4. Needs to purchase 1oz medicine cups . 5. Needs to purchase Children's liquid Tylenol for postop pain control. 6. She needs to stop the Zepbound as latest on 03/27/25 (last injection at that day). Avoid aspirin, motrin, Advil, Aleve, Ibuprofen, Naproxyn. Tylenol is OK. 7. She needs to purchase the Celebrate multivitamins from the hospital's gift shop. 8. Will do basic preop blood work-up any day between Wednesday03/26/25 and Wednesday03/30/25 fasting for 12 hours and is scheduled to see the Anesthesiologist prior to the day of surgery. 9. Importance of adherence to postop follow-up and recommendations was underscored and she understands that. 10. Stop food and bars as of tomorrow 03/19/25 and continue with 3 liquid PREMIER protein shakes (MIX 40zo of Premier WITH 4oz almond milk for each) at 7am-9am, 10am-12pm and 1pm-3pm and two more liquid Premier protein shakes (8oz EACH and NOT the whole bottle) at 4pm-6pm and 7pm-9pm 11. No soups, broths or V8 12. The patient's?medical?history has been reviewed and they are considered low risk for post op DVT and therefore DVT prophylaxis is not considered necessary. Travel after surgery was reviewed. The patient has not disclosed any travel sulaiman ns during the first 30 days after surgery and they have been advised that within the first 30 days after surgery any bus, plane, train or car travel over 2 hours in duration is contraindicated due to the possibility of developing blood clots from immobility. Any travel, needs to include periods of ambulation of 10 minutes in duration every 2 hours.? Patient was instructed to discuss any plans for travel during this period with their bariatric surgeon.? 13. Please take at the day of surgery the following medications: NONE 14. Stop any control pills and don't use them for one month after surgery 15. Absolutely no smoking or vaping, or marijuana until the surgery and for at least the first 4 weeks. Only nicotine patches are allowed. 16. Send me weight measurements on Wednesday03/19/25, Wednesday03/26/25 and then on Wednesday04/03/25, the day of surgery before you go to the hospital. 17. Avoid any steroids by mouth for any reason. Let me know if someone prescribes them to you 18. These instructions supersede anything else you read in the handbook, an ything you watched in videos or classes or you were told by any other provider. If there is any conflict, you follow the above instructions and nothing else. Orders: Orders Complete Blood Count Auto Diff 03/18/25. - Obesity, unspecified, Z68.35 - Body mass index [BMI] 35.0-35.9, adult Lipid Panel 03/18/25. - Obesity, unspecified, Z68.35 - Body mass index [BMI] 35.0-35.9, adult Hemoglobin A1c 03/18/25. - Obesity, unspecified, Z68.35 - Body mass index [BMI] 35.0-35.9, adult Partial Thromboplastin Time 03/18/25. - Obesity, unspecified, Z68.35 - Body mass index [BMI] 35.0-35.9, adult TSH reflex Free T4 03/18/25 - Obesity, unspecified, Z68.35 - Body mass index [BMI] 35.0-35.9, adult Insulin 03/18/25. - Obesity, unspecified, Z68.35 - Body mass index [BMI] 35.0-35.9, adult C Reactive Protein 03/18/25. - Obesity, unspecified, Z68.35 - Body mass index [BMI] 35.0-35.9, adult Comprehensive Met. Panel 03/18/25. - Obesity, unspecified, Z68.35 - Body mass index [BMI] 35.0-35.9, adult Type and Screen 03/18/25. - Obesity, unspecified, Z68.35 - Body mass index [BMI] 35.0-35.9, adult Prothrombin Time INR 03/18/25. - Obesity, unspecified, Z68.35 - Body mass index [BMI] 35.0-35.9, adult Medications: New sucralfate 10 mL PO BID 600 mL 2RF K21.9 - Gastro-esophageal reflux disease without esophagitis pantoprazole 40 mg PO DAILY 90 tabs 0RF K21.9 - Gastro-esophageal reflux disease without esophagitis ondansetron Only take one every 12 hours as needed if you have nausea 4 mg PO Q12H 20 tabs 0RF nausea and vomiting R11.0 - Nausea polyethylene glycol 3350 Mix each measuring cup with 8oz of water, Crystal light, or Gatorade zero, or Propel and do 7 measuring cups on 04/01/25 and another 7 measuring cups on 04/02/25 17 grams PO DAILY 238 grams 0RF Z01.818 - Encounter for other preprocedural examination
[2025-03-18 23:11] VITALS: BMI 35.8
--- OUTSIDE RECORDS SUMMARY | 2025-03-19 09:22 | XMS_ITS | Clinical Summary ---
Author Organization [address] [facility] Address [address] [place] [address] Phone Care Team Providers Care Fisheries Inspector Name Role Phone Vivek Sams MD Primary Care Provider [phone] Allergies No known active allergies Medications ALBUTEROL [...] (two) times a day. 10/05/19 25 Active amoxicillin (AMOXIL) 500 mg capsule [...] every 7 (seven) days. 02/09/20 25 Active SUMAtriptan (IMITREX) 50 mg tablet TAKE 1 TABLET (50 MG TOTAL) BY MOUTH 1 (ONE) TIME EACH DAY NEEDED FOR MIGRAINE. MAY REPEAT DOSE ONCE IN 2 HOURS IF NO RELIEF. DO NOT EXCEED 2 DOSES IN 24 HOURS. 9 tablet 1 03/12/20 25 Active SUMAtriptan (IMITREX) 50 mg tablet TAKE 1 TABLET (50 MG TOTAL) BY MOUTH 1 (ONE) TIME EACH DAY NEEDED FOR MIGRAINE. MAY REPEAT DOSE ONCE IN 2 HOURS IF NO RELIEF. DO NOT EXCEED 2 DOSES IN 24 HOURS. 9 tablet 1 01/11/20 25 2024 Discontinued Active Problems Problem Noted Date Diagnosed Date Morbid obesity with BMI of 4 0.0-44.9, adult (CMS/[facility] V24, CMS/[facility] V28) 05/18/[address] 03/17/2024 Overview (05/18/2024): Inserted 02/2024 Flat feet, bilateral 03/20/2020 Encounters Date Type Department Care Team Description 02/15/2025 8:45 AM EDT [facility] [address] [place] [phone] Vivek Smas MD Class 2 obesity due to excess calories without serious comorbidity with body mass index (BMI) of 39.0 to 39.9 in adult (Primary Dx) 01/10/2025 8:30 AM EDT Office Visit Internal Medicine - [facility] [address] [place] [address] Vivek Sams MD Encounter for weight management (Primary Dx); Class 3 severe obesity due to excess calories without serious comorbidity with body mass index (BMI) of 40.0 to 44.9 in adult (CMS/HCC V24, CMS/HCC V28) from Last 3 Months Immunizations Name Administration Dates Next Due DTP 10/11/1995, 4,11/09/1993,1990 [id number] (Pentacel) 2mo to less than 5yo 01/09/1994,11/09/1993,1990 [...] Comments OTHER SURGICAL HISTORY 2021 Bilateral PROCEDURE: CT DECOMPRESSION PLANTAR DIGITAL NERVE; COMMENT: 10/03/2021 (Left); [...] care for your loved ones. For example, childcare center administrator or elderly care for an older adult? [...] Care Team (Late st Contact Info) Description 04/18/2025 8:15 AM EDT Office Visit Obstetrics and Gynecology [address] [address] Yanet Garcia CNM [address] [place] [address] 08/21/2025 8:00 AM EST Office Visit Internal Medicine - [facility] [address] [place] [address] Vivek Sams MD [address] [place] [address] Health Maintenance Due Date Last Done Comments [...] Procedure Name Priority Date/Time Associated Diagnosis Comments EXTERNAL CLINICAL LAB 03/09/2025 EXTERNAL ULTRASOUND REPORT 03/06/2025 HEPATITIS PANEL, ACUTE WITH REFLEX TO CONFIRMATION [...] Recently Relevant to Health Maintenance Results * External clinical lab (03/09/2025) us Provider [facility] LAB BLOOD ORDERABLES Fin al Result * External Ultrasound Report (03/06/2025) Anatomical Region Laterality Modality Ultrasound us Provider [facility] IMG US PROCEDURES Final Result * HIV 1,2 antibody, p24 antigen with [...] Resu lt [facility] [address] [place] [address], [place] [phone] * Lipid panel with reflex to direct LDL (08/15/2024 1:13 PM EST) Cholesterol 149 0 - 200 mg/dL LAB CHEMISTRY METHOD 08/15/2024 5:09 PM [facility] Triglycerides 110 0 - 150 mg/dL LAB CHEMISTRY METHOD 08/15/2024 5:09 PM [facility] HDL 41 >=40 mg/dL LAB CHEMISTRY METHOD 08/15/2024 5:09 PM [facility] LDL Calculated 86 0 - 100 mg/dL LAB CHEMISTRY METHOD 08/15/2024 5:09 PM [facility] VLDL Cholesterol Bull 22 mg/dL LAB CHEMISTRY METHOD 08/15/2024 5:09 PM [facility] Non HDL Chol. (LDL+VLDL) 108 <145 mg/dL LAB CHEMISTRY METHOD 08/15/2024 5:09 PM [facility] Chol/HDL Ratio 3.6 0.0 - 4.4 LAB CHEMISTRY METHOD 08/15/2024 5:09 PM [facility] Blood Venous blood specimen / Unknown Venipuncture / Unknown 08/15/2024 1:13 PM EST 08/15/2024 1:13 PM EST us Vivek Sams MD LAB BLOOD ORDERABLES Final Resu lt [facility] [address] [place] [address], [place] [phone] * Hepatitis panel, acute with reflex to confirmation (08/15/2024 1:13 PM EST) Hepatitis B Surface Ag Negative Negative LAB CHEMISTRY METHOD 08/15/2024 6:40 PM EST [facility] Hepatitis A Antibody IgM Negative Negative LAB CHEMISTRY METHOD 08/15/2024 6:40 PM [facility] Hep B Core IgM Negative [...] Resu lt [facility] [address] [place] [address], [place] [phone] * Cervical Cancer Screening: HPV (02/25/2024) Cervical Cancer Screening: HPV negative, abstracted Historical Provider HEALTH MAINTENANCE Final Result from Last 3 Months or Most Recently Relevant to Health Maintenance Insurance [facility] [employer] [facility] Care Teams Fisheries Inspector Relationship Specialty Start Date End Date Vivek Sams MD [address] [place], [place] [address] [place] [address] PCP - General 08/06/22
== END 2025-03-19 16:24 | disposition home or self-care (01) ==
LOC: HO.HBS 08:15
PROVIDERS: PCP Internal Medicine; Visit Provider Surgery
DX: E66.812 Obesity, class 2 (principal); E66.01 Morbid (severe) obesity due to excess calories; Z68.35 Body mass index [BMI] 35.0-35.9, adult
CPT/HCPCS: 99214

== ENCOUNTER 2025-03-26 08:12 | Outpatient (REF) | payer OTHER, SELFPAY ==
--- OUTSIDE RECORDS SUMMARY | 2025-03-26 08:20 | XMS_ITS | Clinical Summary ---
Author Organization [facility] Address [address] [place] [address] Phone Care Team Providers Care Therapeutic Strategy Lead Name Role Phone Vivek Sams MD Primary Care Provider [phone] Allergies No known active allergies Medications ALBUTEROL [...] obesity with BMI of 4 0.0-44.9, adult (CMS/[facility] V24, CMS/[facility] V28) 05/18/[address] 03/17/2024 Overview (05/18/2024): Inserted 02/2024 Flat feet, bilateral 03/20/2020 Encounters Date Type Department Care Team Description 02/15/2025 8:45 AM EDT [facility] [address] [place] [phone] Vivek Sams MD Class 2 obesity due to excess calories without serious comorbidity with body mass index (BMI) of 39.0 to 39.9 in adult (Primary Dx) 01/10/2025 8:30 AM EDT Office Visit Internal Medicine - [facility] [address] [place] [address] Vivek Sams MD Encounter for weight management (Primary Dx); Class 3 severe obesity due to excess calories without serious comorbidity with body mass index (BMI) of 40.0 to 44.9 in adult (CMS/HCC V24, CMS/[facility] V28) from Last 3 Months Immunizations Immunization Administration Dates Next Due DTP 10/11/1995, 4,11/09/1993,1990 [id number] (Pentacel) 2mo to less than 5yo 01/09/1994,11/09/1993,1990 [...] Comments OTHER SURGICAL HISTORY 2021 Bilateral PROCEDURE: CA DECOMPRESSION PLANTAR DIGITAL NERVE; COMMENT: 10/03/2021 (Left); [...] for your loved ones. For example, child specialist or elderly care for an older adult? [...] Date Recorded What is your living situation? Unrecognized valu e 08/11/2024 Comments No Sex and Gender Information [...] AM EDT Office Visit Obstetrics and Gynecology - [address] [phone] Yanet Garcia CNM [address] [place] [address] 08/21/2025 8:00 AM EST Office Visit Internal Medicine - [facility] [address] [place] [address] Vivek Sams MD [address] [place] [address] Health Maintenance Due Date Last Done Comments HPV Vaccines (1 - 3-dose SCDM series) 2017 Social Influencers of Health Screening 08/11/2025 08/11/2024 DTaP,Tdap,and Td Vaccines (8 - Td or Tdap) 02/19/2026 02/20/2016, 12/08/2011, 04/07/2001, Additional history exists Cervical Cancer Screening: HPV 02/24/2029 02/25/2024 Cholesterol Screening (Lipid Panel) 08/15/2029 08/15/2024, 12/31/2021 RSV Immunization Adult Patients (1 - 1-dose 75+ series) 2065 Varicella Vaccines Aged Out 02/09/1991 No longer [...] and At-Risk Patients (6 to 49 Years) Aged Out 08/15/2024 No longer eligible based on patient's age [...] LAB CHEMISTRY METHOD 08/15/2024 5:57 PM EST [facility] Blood Venous blood specimen / Unknown Venipuncture / Unknown 08/15/2024 1:13 PM EST 08/15/2024 1:13 PM EST Narrative [facility] - 08/15/2024 5:57 PM EST [...] MD LAB BLOOD ORDERABLES Final Resu lt [facility] [address] [place] [address], [place] [phone] * Lipid panel with reflex to direct LDL (08/15/2024 1:13 PM EST) Cholesterol 149 0 - 200 mg/dL LAB CHEMISTRY METHOD 08/15/2024 5:09 PM [facility] Triglycerides 110 0 - 150 mg/dL LAB CHEMISTRY METHOD 08/15/2024 5:09 PM [facility] HDL 41 >=40 mg/dL LAB CHEMISTRY METHOD 08/15/2024 5:09 PM [facility] LDL Calculated 86 0 - 100 mg/dL LAB CHEMISTRY METHOD 08/15/2024 5:09 PM [facility] VLDL Cholesterol Bull 22 mg/dL LAB CHEMISTRY METHOD 08/15/2024 5:09 PM [facility] Non HDL Chol. (LDL+VLDL) 108 <145 mg/dL LAB CHEMISTRY METHOD 08/15/2024 5:09 PM [facility] Chol/HDL Ratio 3.6 0.0 - 4.4 LAB CHEMISTRY METHOD 08/15/2024 5:09 PM [facility] Blood Venous blood specimen / Unknown Venipuncture / Unknown 08/15/2024 1:13 PM EST 08/15/2024 1:13 PM EST us Vivek Sams MD LAB BLOOD ORDERABLES Final Resu lt [facility] [address] [place] [address], * Hepatitis panel, acute with reflex to confirmation (08/15/2024 1:13 PM EST) Hepatitis B Surface Ag Negative Negative LAB CHEMISTRY METHOD 08/15/2024 6:40 PM [facility] Hepatitis A Antibody IgM Negative Negative LAB CHEMISTRY METHOD 08/15/2024 6:40 PM [facility] Hep B Core IgM Negative Negative LAB CHEMISTRY METHOD 08/15/2024 6:40 PM EST [facility] Hepatitis C Antibody Negative Negative LAB CHEMISTRY METHOD 08/15/2024 6:40 PM EST [facility] Blood Venous blood specimen / Unknown Venipuncture / Unknown 08/15/2024 1:13 PM EST 08/15/2024 1:13 PM EST Vivek Sams MD LAB BLOOD ORDERABLES Final Resu lt [facility] [address] [place] [address], [place] [phone] * Cervical Cancer Screening: HPV (02/25/2024) Pathologist [facility] Cervical Cancer Screening: HPV negative, abstracted us Historical Provider HEALTH MAINTENANCE Final Result from Last 3 Months or Most Recently Relevant to Health Maintenance Insurance [facility] [employer] Care Teams Therapeutic Strategy Lead Relationship Specialty Start Date End Date Vivek Sams MD [address] [place] [address] PCP - General 08/06/22
== END 2025-03-26 08:13 | disposition home or self-care (01) ==
LOC: HO.LAB 08:12
PROVIDERS: PCP Internal Medicine; Visit Provider Surgery
DX: Z13.89 Encounter for screening for other disorder (principal)

== ENCOUNTER 2025-04-03 07:51 | Inpatient (IN) | payer OTHER, SELFPAY ==
[2025-03-26 08:30] LABS: MANUAL DIFF FLAG NO
[2025-03-26 08:43] LABS: INTERNATIONAL NORM RATIO 1.1 (0.9-1.1); Prothrombin Time 12.7 SEC (10.9-12.4)
[2025-03-26 08:46] LABS: Partial Thromboplastin Time 30.0 SEC (26.7-34.1)
[2025-03-26 09:10] LABS: Hematocrit 38.7 % (37.0-47.0); Hemoglobin 13.1 g/dl (12.0-16.0); Imm Gran Abs Auto 0.01 X10*3/uL (0.00-0.03); Imm Gran Pct Auto 0.2 % (0.0-0.4); Lymphocytes Absolute Auto 1.9 X10*3/uL (1.2-4.9); Mean Corpuscular HGB Conc 33.9 g/dl (31.0-35.0); Mean Corpuscular Hemoglobin 24.9 pg (27.0-33.0); Mean Corpuscular Volume 73.6 fL (80.0-98.0); NRBC Abs Auto 0.000 X10*3/uL (0.0-0.012); NRBC Pct Auto 0.0 /100WBC (0.0-0.2); Platelet Count 323 X10*3/uL (160-400); Red Blood Count 5.26 X10*6/uL (4.20-5.50); White Blood Count 6.2 X10*3/uL (4.8-10.8)
[2025-03-26 09:17] LABS: Hemoglobin A1C 111.8593 umol/L; Total Hemoglobin (HGBA1C) 3408.7055 umol/L
[2025-03-26 09:47] LABS: Alanine Aminotransferase 23 U/L (0-31); Albumin Level 4.4 g/dL (3.5-5.0); Alkaline Phosphatase 68 U/L (39-117); Anion Gap 9 (12-20); Aspartate Amino Transferase 20 U/L (5-31); Blood Urea Nitrogen 11 mg/dL (9-16); Calcium 9.6 mg/dL (8.4-10.2); Carbon Dioxide 28 mmol/L (22-29); Chloride 111 mmol/L (96-108); Cholesterol 142 mg/dL (<200); Estimated Glomerular Filt Rate > 60; HDL Cholesterol 31 mg/dL (>40); Potassium 4.5 mmol/L (3.3-5.1); Sodium 143 mmol/L (135-145); Total Protein 7.3 g/dL (6.5-8.0); Triglycerides 94 mg/dL (<150)
[2025-03-28 10:32] VITALS: BMI 35.2
[2025-04-03] VITALS (13 sets, daily range): BP systolic 106–141; BP diastolic 54–84; PULSE 69–96; RESP 16–23; TEMP 36.3–36.7; O2SAT 98–100; BMI 39.2
[2025-04-03 08:00] LABS: UPreg QC Valid YES
[2025-04-03] MEDS: Lactated Ringers 1,000 ML 999 ML IV (08:19)
[2025-04-03] MEDS: Aprepitant 32 MG/4.4 ML VIAL IVPUSH (08:19)
--- NOTE | 2025-04-03 09:06 | PHA.MEDREC ---
Pharmacy Consult ? Medication Reconciliation Pharmacy has reviewed the medication reconciliation completed by nursing. Pt takes Abdon on Wednesday.
[2025-04-03] MEDS: Lactated Ringers 1,000 ML 100 ML IVCONT ×2 (09:07→14:42)
--- NOTE | 2025-04-03 09:21 | HO.ANESPROP2 ---
Documented by User: Alecia Capps NP 03/30/25 10:51 HPI - Anesthesia Eval Consult details Narrative: 34yo F for Gastrectomy Sleeve,EGD,possible Diaphragmatic Hernia,possible Ventral Hernia,possible Open PMFSH Active Problems Active Problems: All Active Problems BMI 39.0-39.9,adult (Acute) Obesity (Acute) Vitamin B1 deficiency (Acute) H. pylori infection (Acute) Vitamin A deficiency (Acute) BMI 35.0-35.9,adult (Acute) Migraines (Acute) Asthma (Acute) Morbid obesity (Acute) Past Medical History Medical History (Updated 03/18/25 @ 23:18 by Papito Hernandez MD) BMI 35.0-35.9,adult Migraines Asthma Morbid obesity Family History Family History Mother No problems noted. Father Heart failure Gout Son No problems noted. Son Asthma Chronic headaches Daughter ADHD Epilepsy Family history of problems with anesthesia: No Surgical History Surgical History (Updated 03/28/25 @ 10:19 by Emma Wooten RN) Hx of wisdom tooth extraction History of esophagogastroduodenoscopy (EGD) S/P foot surgery, right (~2021) S/P foot surgery, left (~2021) History of Problems with Anesthesia: No Social History Social History Alcohol intake: current Alcohol intake frequency: holidays/special occasions only Patient Tobacco Use Status: Never used Tobacco Use of substances other than those prescribed or required for medical reasons: No Have you been hit, kicked, punched, or otherwise hurt by someone within the past year? If so, by whom?: No Are you DNR?: No Advance Directives: No Advance Directives Information Provided: No Advance Directives on File: No Patient : No : No Poor oral hygiene: No Meds Allergies Allergy/AdvReac Type Severity Reaction Status Date / Time latex Allergy Hives Verified 03/28/25 10:10 Home Medications ?Medication ?Instructions ?Recorded ?Confirmed ?Last Taken ?Type albuterol sulfate 90 mcg/actuation 2 puff inhalation Q6H PRN 12/15/24 03/28/25 Unknown History aerosol inhaler (Ventolin HFA) Shortness Of Breath Or Wheezing budesonide-formoterol HFA 160 2 puff inhalation BID 12/15/24 03/28/25 Unknown History mcg-4.5 mcg/actuation aerosol inhaler (Symbicort) levocetirizine 5 mg tablet 5 mg PO QPM 12/15/24 03/28/25 04/01/25 History sumatriptan succinate 50 mg tablet 50 mg PO Q2-4H PRN Headache 12/15/24 03/28/25 03/31/25 History tirzepatide (weight loss) 5 mg/0.5 5 mg subcut TU 04/03/25 04/03/25 03/13/25 History mL subcutaneous pen injector (Zepbound) Exam Height,Weight and Vital Signs: Height 5 ft 5 in Weight 96.071 kg Pertinent Lab Results Pertinent Lab Results: Laboratory Tests 03/26/25 03/26/25 08:19 08:24 WBC 6.2 RBC 5.26 Hgb 13.1 Hct 38.7 MCV 73.6 L MCH 24.9 L MCHC 33.9 RDW 15.1 Plt Count 323 MPV 10.9 Immature Gran % (Auto) 0.2 Neut % (Auto) 58.6 Lymph % (Auto) 30.9 Hooker % (Auto) 6.1 Eos % (Auto) 3.7 Baso % (Auto) 0.5 Lymph # (Auto) 1.9 Hooker # (Auto) 0.4 Eos # (Auto) 0.2 Baso # (Auto) 0.0 Abs Immat Gran (auto) 0.01 Absolute Neuts (auto) 3.6 Absolute Nucleated RBC 0.000 Nucleated RBC % (auto) 0.0 PT 12.7 H INR 1.1 APTT 30.0 Sodium 143 Potassium 4.5 Chloride 111 H Carbon Dioxide 28 Anion Gap 9 L BUN 11 Creatinine 0.84 Estim Creat Clear Calc TNP Estimated GFR > 60 Random Glucose 92 Estimat Average Glucose 103 Hemoglobin A1c % 5.2 Insulin Level 13 Calcium 9.6 Total Bilirubin 0.3 AST 20 ALT 23 Alkaline Phosphatase 68 C-Reactive Protein 0.79 H Total Protein 7.3 Albumin 4.4 Triglycerides 94 Cholesterol 142 LDL Cholesterol, Calc 93 HDL Cholesterol 31 L TSH 1.24 Blood Type O Positive Antibody Screen NEGATIVE Narrative Narrative: EKG 12/2024 Vent. Rate : 72 BPM Atrial Rate : 72 BPM P-R Int : 124 ms QRS Dur : 92 ms QT Int : 368 ms P-R-T Axes : 25 29 50 degrees QTcB Int : 402 ms Normal sinus rhythm Normal ECG No previous ECGs available Assessment and Plan Assessment Anesthesia Assessment: Chart Reviewed Final Anesthetic Review Family History of Problems with Anesthesia: No History of Problems with Anesthesia: No Documented by User: Christine Morley DO 04/03/25 09:22 [facility] Past Medical History Medical History (Updated 03/18/25 @ 23:18 by Papito Hernandez MD) BMI 35.0-35.9,adult Migraines Asthma Morbid obesity Family History Family History Mother No problems noted. Father Heart failure Gout Son No problems noted. Son Asthma Chronic headaches Daughter ADHD Epilepsy Family history of problems with anesthesia: No Surgical History Surgical History (Updated 03/28/25 @ 10:19 by Emma Wooten RN) Hx of wisdom tooth extraction History of esophagogastroduodenoscopy (EGD) S/P foot surgery, right (~2021) S/P foot surgery, left (~2021) History of Problems with Anesthesia: No Social History Social History Alcohol intake: current Alcohol intake frequency: holidays/special occasions only Patient Tobacco Use Status: Never used Tobacco Use of substances other than those prescribed or required for medical reasons: No Have you been hit, kicked, punched, or otherwise hurt by someone within the past year? If so, by whom?: No Are you DNR?: No Advance Directives: No Advance Directives Information Provided: No Advance Directives on File: No Patient : No : No Poor oral hygiene: No Meds Allergies Allergy/AdvReac Type Severity Reaction Status Date / Time latex Allergy Hives Verified 03/28/25 10:10 Home Medications ?Medication ?Instructions ?Recorded ?Confirmed ?Last Taken ?Type albuterol sulfate 90 mcg/actuation 2 puff inhalation Q6H PRN 12/15/24 03/28/25 Unknown History aerosol inhaler (Ventolin HFA) Shortness Of Breath Or Wheezing budesonide-formoterol HFA 160 2 puff inhalation BID 12/15/24 03/28/25 Unknown History mcg-4.5 mcg/actuation aerosol inhaler (Symbicort) levocetirizine 5 mg tablet 5 mg PO QPM 12/15/24 03/28/25 04/01/25 History sumatriptan succinate 50 mg tablet 50 mg PO Q2-4H PRN Headache 12/15/24 03/28/25 03/31/25 History tirzepatide (weight loss) 5 mg/0.5 5 mg subcut TU 04/03/25 04/03/25 03/13/25 History mL subcutaneous pen injector (Zepbound) Exam Exam Date and Time: 04/03/25 0920 Height,Weight and Vital Signs: Height 5 ft 5 in Weight 96.071 kg Vital Signs Temperature 98.0 F 04/03/25 08:05 Pulse Rate 72 04/03/25 08:05 Respiratory Rate 16 04/03/25 08:05 Blood Pressure 106/61 04/03/25 08:05 Pulse Oximetry 98 04/03/25 08:05 Oxygen Delivery Method Room Air 04/03/25 08:05 Temperature 98.0 F 04/03/25 08:05 Pulse Rate 72 04/03/25 08:05 Respiratory Rate 16 04/03/25 08:05 Blood Pressure 106/61 04/03/25 08:05 Pulse Oximetry 98 04/03/25 08:05 Oxygen Delivery Method Room Air 04/03/25 08:05 Airway Mallampati Class: II TM Dist: >3cm Neck ROM: Full Loose/Missing/Broken Teeth: No (patient denies any loose or broken teeth) Heart: S1S2 Lungs: CTAB Assessment and Plan Assessment Anesthesia Assessment: Anesthesia Plan Discussed and Chart Reviewed Final Anesthetic Review Family History of Problems with Anesthesia: No History of Problems with Anesthesia: No NPO: Yes ASA Class: II Final Preanesthetic Review: No Changes in Pt Med Stat, Meds/Allgs Chart Reviewed, Consent Obtained/Reviewed and Anes Risks/Benef Reviewed Patient Risk: Low Procedure Risk: Intermediate Anesthetic Plan Anesthetic Plan: GA and Agree w/ Assess. and Plan Disposition: Standard PACU
--- NOTE | 2025-04-03 10:21 | MHC.SHP ---
Pre-Procedural Eval Section A - 24 Hr Update-Section A only Date of Service: 04/03/25 The patient is an INPATIENT: Yes The patient has been examined within 24 hours of the surgical procedure. The History & Physical has been completed within 30 days and I have reviewed it.: No Section B - Complete if H&P > 30 days Chief Complaint: obesity Relevant Family History (Specify if Yes): No Relevant Social History: None Present Medications: None Medical History: No relevant PMH History of Previous Operations: No relevant previous surgery Allergies: Allergies Allergy/AdvReac Type Severity Reaction Status Date / Time latex Allergy Hives Verified 03/28/25 10:10 Review of Systems Sugical H&P ROS: Negative: Constitution, Cardiovascular, Respiratory, Neurological, Psychiatric, Hem-Onc, Allergic/Immunologic, Gastrointestinal, Genitourinary, Musculoskeletal, Integumentary, Endocrine and Eyes/Ears/Nose/Throat Exam Surgical H&P Exam: Normal: HEENT, Normal: Heart, Normal: Lungs, Normal: Extremities, Normal: Abdomen, Normal: Skin and Normal: Neurological Plan Diagnosis/Plan: Unchanged I have reviewed the history and physical and performed a pertinent physical examination on my patient. No changes have occurred unless specified. Time Spent With Patient Time: Total time managing care of this patient today ____ minutes.
--- NOTE | 2025-04-03 10:29 | P.BOP_ITS ---
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 The program is a phased program with a special focus on preoperative medical weight management to promote substantial weight loss and prepare the patients for the second phase of the program: bariatric surgery. The patient participated in an intensive weekly lifestyle ?intervention and exercise program during which the patient ?has lost between the initial office visit and the last preoperative visit 51.1lbs, or 19.45% of initial actual body weight. It was deemed appropriate for the patient to now have bariatric surgery. In light of the current Covid-19 pandemic and the well documented strong association of obesity and increased risk of worse outcomes if infected with Covid-19 (REFERENCES: https://pubmed.ncbi.nlm.nih.gov/42167149/ ,? https://pubmed.ncbi.nlm.nih.gov/35437042/ ), any delay in undergoing bariatric surgery may lead to the patient's worsening health condition and increased?risk of more severe Covid-19 disease if infected. In addition a recent?study from [facility] published in [facility] on 06/23/2021 ([email or web address]) found that, among patients with obesity, substantial weight loss achieved with surgery was associated with improved outcomes of COVID-19 infection. The findings suggest that obesity can be a modifiable risk factor for the severity of COVID-19 infection. In addition, the patient met the BMI-criteria for bariatric surgery based on the BMI on initial presentation. The patient should not be penalized for achieving such weight loss because ?it is not sustainable long-term without surgical intervention and it was achieved in preparation for bariatric surgery ?under my direction and based on my published research ([email or web address]).[email or web address] and? https://www.soard.org/article/F5930-8100(49)51076-X/pdf ) ?that a 10% preoperative weight loss improves long-term weight loss after surgery and reduces perioperative complications.? Insurance carriers such as [facility] have endorsed my recommendations ?and have included in their policies criteria to include a 10% preoperative weight loss requirement. PROCEDURE: Esophago-gastroscopy, laparoscopic lysis of adhesions, laparoscopic sleeve gastrectomy and laparoscopic gastropexy INDICATIONS: This is a 34 year-old female who was electively scheduled for laparoscopic, possibly open sleeve gastrectomy. The risks and complications of the procedure were discussed with the patient in advance, particularly the possibility of ; pulmonary embolism; staple line leak; bleeding; GERD; cardiac, pulmonary, or renal complications; as well as long-term problems such as insufficient weight loss, vitamin deficiency, strictures, or ulcers. The patient understood all the risks, and was in agreement to proceed with surgery. DESCRIPTION OF PROCEDURE: After informed consent was obtained from the patient, the patient was given preoperative antibiotics, and was transferred to the operating room. After successful induction of general anesthesia, pneumatic compression devices were placed on both lower extremities. An upper endoscopy was performed next. The oropharynx and esophagus appeared to be within normal limits. There was a diaphragmatic hernia present of moderate size consistent with the findings of the preoperative upper GI. The stomach was entered. Then after all fluid and air were suctioned and the stomach was fully decompressed, the scope was withdrawn and secured in the mid esophagus. The patient was then prepped and draped in the usual sterile manner, and abdominal access was established at the right upper quadrant with the Carmel technique. A 12 mm blunt port was inserted, and the abdomen was insufflated with CO2 to a pressure of 15 mmHg. Under direct visualization, additional ports were placed, specifically two 5 mm Versi-step ports to the left upper quadrant, and a 5 mm Versi-Step port to the right upper quadrant. 1% lidocaine plain was used to infiltrate all port sites as well as all fascia defects. Following that, the patient was placed in a steep reverse Trendelenburg position. An additional 5 mm port was placed to the right flank for the Mediflex retractor that was used to retract the left lobe of the liver. The gastro-esophageal fat pad was opened with the ultrasonic device (Thhasmukherbekathryn, Olympus) and the anterior esophagus and hiatus were exposed. The angle of His was opened with the ultrasonic device the fundus of the stomach from any diaphragmatic and splenic attachments. I then opened the gastrocolic ligament between the transverse colon and the greater curvature of the stomach with the ultrasonic device to enter the lesser sac and facilitate the ligation of the short gastric vessels. I started at a mid-point along the greater curvature and using the Thunderbeat, all short gastric vessels were divided all the way to the angle of His until the left anatoly was completely dissected at its entirety. I then divided the gastro-colic ligament distally to a distance of about 3-4 cm proximal to the pylorus. There were extensive congenital adhesions between the pancreas and posterior gastric wall. Those were lysed completely with the ultrasonic device. Adhesiolysis took approximately 45 min to complete. The stomach was then divided transversely with two Endo AMANDA-45 purple and three AMANDA-60 articulating purple loads using the [employer] stapler and loads. Every effort was made that the gastric sleeve had a tubular shape and an even caliber throughout. Once the sleeve resection was completed, the staple line of the gastric sleeve was reinforced with Hemoclips. The resected stomach was retrieved without difficulty from the Carmel port. A gastropexy was then performed in order to prevent postoperative GERD and partial gastric volvulus. Several interrupted 2.0 Surgidac sutures were placed between the sleeve's staple line and the previously divided greater omentum and gastro-colic ligament using the Endo-Stitch device. ?An upper endoscopy was performed. There was no narrowing at the GE junction. The scope was easily advanced all the way to the pylorus which was clearly visualized. There was no narrowing anywhere and the sleeve's caliber was even throughout. The sleeve's staple line was inspected and there was no evidence of ischemia, bleeding or dehiscence. At that point the gastroscope was withdrawn from the patient?s mouth while we were decompressing the bowel and the stomach from any remaining air. I looked into the lesser sac to see how the sleeve was situating and it was situating well. There was no bleeding from the staple line, spleen, or short gastric vessels. The Mediflex retractor was removed, and the undersurface of the liver was inspected and there was no bleeding. The patient was placed in supine position. I closed the fascial defect of the 12 mm port site with a figure of eight #1 Polysorb suture. Then 30cc Ropivacaine plain with 10 mg of Dexamethasone were used to infiltrate the fascial closure as well as all skin incisions. At this point, the abdomen was deflated, all ports were removed under direct vision, and no bleeding was noted from any of the port sites. The skin incisions were irrigated with saline and were closed with 4-0 absorbable monofilament sutures. Steri-Strips and OpSites were used to cover all incisions. The patient was extubated and was transferred in stable condition to the recovery room for further care. I was present and performed all russell parts of the procedure. Ms. Diaz was the wheelchair van operator first responder. There were no residents to assist with this case. Vikram Hernandez MD, PhD, FACS Surgeon: Papito Hernandez MD Anesthesia: GETA, local and other (TAP block) Was an Night Clerk used for this Procedure?: No Night Clerk: My Diaz Estimated blood loss (mL): 10 IV fluids (mL): 2,800 Urine output (mL): 0 (No Su to record output) Pathology: other (1) Stomach, 2) Gastro-esophageal fat pad) Condition: stable Disposition: PACU
--- NOTE | 2025-04-03 10:31 | P.PNGS_ITS ---
Subjective Subjective Date of Service: 04/04/25 Interval history: Feels well. Mild incisional pain. She is tolerating phase 1 bariatric diet Physical Exam 2 Vital Signs: Vital Signs: Last Vital Signs Temp 98.0 F 04/03/25 08:05 Pulse 72 04/03/25 08:05 Resp 16 04/03/25 08:05 BP 106/61 04/03/25 08:05 Pulse Ox 98 04/03/25 08:05 O2 Del Method Room Air 04/03/25 08:05 BMI result Body Mass Index 35.2 GI: Inspection: Yes normal to inspection, Yes incision (clean, dry and intact) and Yes obesity Palpation (GI): Soft to palpation Extrem: Right lower extremity: normal to inspection (no calf tenderness) L eft lower extremity: normal to inspection (no calf tenderness) Objective Data Active Medications Albuterol Sulfate (Albuterol Sulfate (0.083%) 2.5 Mg/3 Ml Vial.Neb) 2.5 mg INHALE ONCE PRN PRN Reason: Shortness of Breath/Wheezing Haloperidol Lactate (Haloperidol Lactate 5 Mg/Ml Vial) 1 mg IVPUSH ONCE PRN PRN Reason: intractable nausea Stop: 04/03/25 16:16 Hydromorphone HCl (Hydromorphone Hcl 0.5 Mg/0.5 Ml Syringe) 0.5 mg IVPUSH Q5M PRN PRN Reason: Pain, Moderate to Severe (Pain Scale 4-10) Stop: 04/03/25 16:16 Lactated Ringer's (Lr) 1,000 mls @ 100 mls/hr IVCONT .Q10H ALYSIA Stop: 04/03/25 11:59 Last Admin: 04/03/25 09:07 Dose: 100 mls/hr Documented By: CASS Naloxone HCl (Naloxone Hcl 0.4 Mg/Ml Vial) 0.04 mg IVPUSH Q5M PRN PRN Reason: Excessive sedation or RR < 8 Labs 04/04/25 05:28 04/04/25 05:28 Labs: Laboratory Results - last 24 hr 04/03/25 07:52 Urine Test NEGATIVE Procedures Date of Service Date of Service: 04/04/25 Progress Note: A&P Assessment and plan (1) Obesity: Status: Acute Assessment and Plan: s/p laparoscopic sleeve gastrectomy, lysis of adhesions and gastropexy Doing well Will check am labs and if OK the patient will be discharged home (2) BMI 35.0-35.9,adult: Status: Acute (3) Migraines: Status: Acute (4) Asthma: Status: Acute (5) S/P laparoscopic sleeve gastrectomy: Status: Acute Time Spent With Patient Time: Total time managing care of this patient today ____ minutes. Quality Stroke Does the patient have a stroke diagnosis?: No VTE Prior VTE?: No VTE Risk Level:: Surgical - moderate VTE Device Contraindication: N/A - Device Ordered VTE Drug Contraindication: Treatment Not Indicated
[2025-04-03 13:21] LABS: Hematocrit 36.6 % (37.0-47.0); Hemoglobin 12.6 g/dl (12.0-16.0)
[2025-04-03 13:41] LABS: Anion Gap 12 (12-20); Blood Urea Nitrogen 8 mg/dL (9-16); Calcium 8.6 mg/dL (8.4-10.2); Carbon Dioxide 23 mmol/L (22-29); Chloride 109 mmol/L (96-108); Creatinine Clr Calc Pharmacy 109.5; Estimated Glomerular Filt Rate > 60; Potassium 3.7 mmol/L (3.3-5.1); Sodium 140 mmol/L (135-145)
[2025-04-03] MEDS: 0.9 % Sodium Chloride Flush 3 ML SYRINGE IVFLUSH (19:48)
[2025-04-04] MEDS: Lactated Ringers 1,000 ML 100 ML IVCONT (01:46)
[2025-04-04 03:29] VITALS: BP 125/60; PULSE 70; RESP 18; TEMP 36.7; O2SAT 100
[2025-04-04 06:06] LABS: MANUAL DIFF FLAG NO
[2025-04-04 06:21] LABS: Hematocrit 33.9 % (37.0-47.0); Hemoglobin 12.0 g/dl (12.0-16.0); Imm Gran Abs Auto 0.04 X10*3/uL (0.00-0.03); Imm Gran Pct Auto 0.4 % (0.0-0.4); Lymphocytes Absolute Auto 1.0 X10*3/uL (1.2-4.9); Mean Corpuscular HGB Conc 35.4 g/dl (31.0-35.0); Mean Corpuscular Hemoglobin 25.4 pg (27.0-33.0); Mean Corpuscular Volume 71.7 fL (80.0-98.0); NRBC Abs Auto 0.000 X10*3/uL (0.0-0.012); NRBC Pct Auto 0.0 /100WBC (0.0-0.2); Platelet Count 272 X10*3/uL (160-400); Red Blood Count 4.73 X10*6/uL (4.20-5.50); White Blood Count 9.7 X10*3/uL (4.8-10.8)
[2025-04-04 06:29] LABS: Anion Gap 13 (12-20); Blood Urea Nitrogen 7 mg/dL (9-16); Calcium 8.8 mg/dL (8.4-10.2); Carbon Dioxide 22 mmol/L (22-29); Chloride 109 mmol/L (96-108); Creatinine Clr Calc Pharmacy 126.7; Estimated Glomerular Filt Rate > 60; Potassium 5.0 mmol/L (3.3-5.1); Sodium 139 mmol/L (135-145)
[2025-04-04 07:47] VITALS: BP 123/73; PULSE 60; RESP 18; TEMP 36; O2SAT 100
--- NOTE | 2025-04-04 08:55 | HO.POSTANES ---
Post Anesthesia Evaluation Post Anesthesia Evaluation Date of Service: 04/04/25 Vital Signs: Vital Signs Temp Pulse Resp BP Pulse Ox O2 Del Method 04/04/25 07:47 96.8 F 60 18 123/73 100 Room Air 04/04/25 03:29 98.1 F 70 18 125/60 100 Room Air 04/03/25 23:58 97.6 F 69 18 115/54 L 100 Room Air Anesthesia: General Mental Status: Awake Pain Control: Satisfactory Nausea/Vomiting: None Hydration: Adequate Anesthesia-Related Issues: No Anes. Related Issues
--- NOTE | 2025-04-04 09:09 | MHC.CM.PN ---
Addendum entered by Betty Fragoso 04/04/25 09:12: Patient is tolerating diet. A discharge order has been received. Home self care, with private transport home. Original Note: S/P Gastric sleeve with PING She lives with her children She is independent with all functional mobility, no AD PCP Vivek Sams Requested copy HCP. DP Home self care. Patient will arrange for private transportation home.
--- NOTE | 2025-04-04 10:25 | MHC.CM.PN ---
pt dcd home self care prior to being seen by cm
--- NOTE | 2025-04-17 16:13 | PM.DS ---
DS: Providers Provider Date of Service: 04/04/25 Date of admission: 04/03/25 07:51 Date of discharge: 04/04/25 Primary care physician: Vivek Sams MD DS: Diagnosis Discharge Diagnosis (1) Obesity: Status: Acute (2) BMI 35.0-35.9,adult: Status: Acute (3) Migraines: Status: Acute (4) Asthma: Status: Acute (5) S/P laparoscopic sleeve gastrectomy: Status: Acute DS: Summary Hospital Course Hospital Course: ADMITTING DIAGNOSIS: obesity DISCHARGE DIAGNOSIS: same, s/p laparoscopic sleeve gastrectomy and gastropexy PAST SURGICAL HISTORY:? Hx of wisdom tooth extraction History of esophagogastroduodenoscopy (EGD) S/P foot surgery, right (~2021) S/P foot surgery, left (~2021) PROCEDURE: upper endoscopy, laparoscopic sleeve gastrectomy and gastropexy DISCHARGE SUMMARY: History of Present Illness: The patient is a?34 year-old woman with a BMI of?39.2 kg/m2 and associated co-morbidities as described above. The patient had extensive work-up, lost?17 lbs preoperatively and was electively scheduled for laparoscopic, possible open sleeve gastrectomy and gastropexy. Risks and complications of the surgery were discussed with the patient in advance, particularly the possibility of , pulmonary embolism, anastomotic leak, bleeding, bowel injury, GERD, cardiac, renal or pulmonary complications. The patient understood all the risks and was in agreement with the surgical plan. Hospital Course: The patient underwent an uneventful laparoscopic sleeve gastrectomy with gastropexy on the day of admission. Postoperatively, the patient was transferred to the surgical floor. The patient received IV acetaminophen and IV Dilaudid for pain control. Patient was started on bariatric phase 1 diet POD #0. On postoperative day one, the patient was feeling well without nausea, vomiting, fevers, or tachycardia. The patient had some mild incisional pain and the abdomen was soft.? ? On the morning of postoperative day one, the patient was continued on 1 ounce of water or ice every half hour. During the day, the patient did fairly well, having some incisional pain, but able to ambulate adequately and to tolerate liquids well. Since the patient is doing well, we decided that the patient was ready to be discharged. The patient was given instructions to follow-up in office next week and to call the office for any fever over 101, persistent abdominal pain, nausea, vomiting, GERD, symptoms of DVT such as calf tenderness, or leg swelling, or pulmonary embolism such as chest pain or shortness of breath.? The patient was also instructed to drink 40-60 ounces of liquids per day using the 1-ounce cups. The patient had been given prescriptions for Tylenol for pain, Zofran prn for nausea, and pantoprazole and carafate previously. The patient was encouraged to ambulate and use the incentive spirometer. The patient was allowed to shower, but no baths, and encouraged to stay active at home. All of these instructions were given to the patient personally. All questions were answered and the patient understood all instructions, the instructions were also given to the patient in print. Time Attestation Discharge Coordination Time (in mins): 30 Quality: Safe Use of Opioids Does Pt have an Active Cancer Diagnosis on the Problem List?: No Quality: Stroke Does the patient have a stroke diagnosis?: No Physical Exam Vital Signs: Vital Signs: Last Vital Signs Temp 96.8 F 04/04/25 07:47 Pulse 60 04/04/25 07:47 Resp 18 04/04/25 07:47 BP 123/73 04/04/25 07:47 Pulse Ox 100 04/04/25 07:47 O2 Del Method Room Air 04/04/25 07:47 O2 Flow Rate 6 04/03/25 13:14 BMI result Body Mass Index 39.2 DS: Data Data Completed and Pending Completed studies during hospitalization [Text1]: Pending at discharge 04/03/25 12:02 Surgical [PTH] Routine Discharge Plan Discharge Anticipated Discharge Date/Time: 04/03/25 12:59 Patient Disposition: Home, Self-Care Discharge Diagnosis: s/p laparoscopic sleeve gastrectomy with gastropexy Referrals: Vivek Sams MD [Primary Care Provider, Internal Medicine] - 1 Week Discharge Medications: Continued albuterol sulfate [Ventolin HFA] 90 mcg/actuation HFA aerosol inhaler 2 puff inhalation Q6H PRN (Reason: Shortness Of Breath Or Wheezing) sumatriptan succinate 50 mg tablet 50 mg PO Q2-4H PRN (Reason: Headache) Rx Instructions: do not exceed 4 doses per 24 hrs budesonide-formoterol [Symbicort] 160-4.5 mcg/actuation HFA aerosol inhaler 2 puff inhalation BID levocetirizine 5 mg tablet 5 mg PO QPM sucralfate 100 mg/mL suspension 10 ml PO BID Qty: 600 2RF pantoprazole 40 mg tablet,delayed release (DR/EC) 40 mg PO DAILY Qty: 90 0RF ondansetron 4 mg tablet,disintegrating 4 mg PO Q12H Qty: 20 0RF Rx Instructions: Only take one every 12 hours as needed if you have nausea Discontinued thiamine HCl (vitamin B1) 100 mg tablet 100 mg PO DAILY Qty: 90 0RF vitamin A palmitate 3,000 mcg (10,000 unit) capsule 3,000 mcg PO DAILY Qty: 90 0RF Zepbound 5 mg/0.5 mL pen injector 5 mg subcut TU Patient Comments: every wednesday polyethylene glycol 3350 17 gram/dose powder 17 g PO DAILY Qty: 238 0RF Rx Instructions: Mix each measuring cup with 8oz of water, Crystal light, or Gatorade zero, or Propel and do 7 measuring cups on 04/01/25 and another 7 measuring cups on 04/02/25 Discharge Orders: Discharge Order (Routine); Ordered 04/04/25 Ordered By: Papito Hernandez Activity on Discharge: No heavy lifting Stand Alone Forms: Patient Portal Discharge page Print Language: Nauruan Care Plan Goals: weight loss Health Concerns: obesity Plan of Treatment: No tub baths, sex or returning to work until discussed at first post op appointment. No alcohol, tobacco or illegal drug use. Continue to use incentive spirometer hourly while awake. Walk in home for 5- 10 minutes every 2 hours during the first week. Wear abdominal binder with activity. Follow all meal plan instructions from your bariatric surgeon. Review bariatric handbook and call with any questions. Discharge Instructions 1. Please call your doctor or come back to the emergency room should any new symptoms arise. 2. Activity: abstain from alcohol,? limited stair climbing, no bending, no driving, no exercise, no illicit substances, no lifting, no sex, no tub bath, no work. 4. Diet: follow your bariatric surgeon's recommendations for advancing diet. 5. Dressing Change/Wound Care: Your incisions are covered with waterproof dressings. You can shower with these and pat dry. Do not rub over dressings or incisions. If the area is tender, you may apply an ice pack for short intervals (no more than 20 minutes on, followed by at least 20 minutes off). Do not apply heat. Do not use creams, lotions, or topical antibiotics unless instructed to do so by your surgeon. 6. Call your doctor if: - Your temperature exceeds 101.5 F - You experience excessive pain or swelling - You have an unexpected reaction to medication - You have excessive bleeding - You experience continued vomiting/nausea - Your incision begins to separate - Your incision shows signs of infection such as increased redness, swelling, excessive pain, heat, or drainage (light blood or clear fluid is normal) General instructions: No lifting greater than 10 lbs for the next 6 weeks[address] within 24 hours of taking narcotic pain medications. If you do not move your bowels in the next 2 days, please take milk of magnesia over the counter. Please follow the post op diet and do not advance your diet until instructed by your surgeon or until you are seen in the office in about 1 week. Please walk around your home every hour or two to prevent blood clots from forming in your legs. You do not need to wake from sleeping to walk. Please sleep in a bed or couch to prevent kinking at the hips and knees. Please take your incentive spirometer (your lung chief contract officer) home with you and use it for the next few days to prevent pneumonias. You may shower; no hot tubs, baths or swimming pools. Please make sure you are consuming 40-60 ounces of total fluids per day. Avoid all carbonation. Please call the office with any questions or concerns such as increasing abdominal pain, fever, chills, shortness of breath, chest pain, leg pain or swelling, or redness or drainage from your incisions. Do not hesitate to contact the office with any questions at . The patient's medical history has been reviewed and they are considered low risk for post op DVT and therefore DVT prophylaxis is not considered necessary. Travel after surgery was reviewed. The patient has not disclosed any travel plans during the first 30 days after surgery and they have been advised that within the first 30 days after surgery any bus, plane, train or car travel over 2 hours in duration is contraindicated due to the possibility of developing blood clots from immobility. Any travel, needs to include periods of ambulation of 10 minutes in duration every 2 hours.? The patient was instructed to discuss any plans for travel during this period with their bariatric surgeon. Assessment: s/p laparoscopic sleeve gastrectomy with gastropexy Discharge Date/Time: 04/04/25 10:42
== END 2025-04-04 10:42 | disposition home or self-care (01) | DRG 403 ==
LOC: HO.SSSA 12:59 → HO.S3 13:42
PROVIDERS: Nurse Practitioner; Physician Assistant Surgical; Admitting Provider Surgery; PCP Internal Medicine; Visit Provider Surgery
PROC: 0DB64Z3 Excision of Stomach, Percutaneous Endoscopic Approach, Vertical (ICD-10-PCS; CPT 43845; principal; 2025-04-03 10:20)
DX: E66.01 Morbid (severe) obesity due to excess calories (principal); Q43.3 Congenital malformations of intestinal fixation; J45.909 Unspecified asthma, uncomplicated; Z68.35 Body mass index [BMI] 35.0-35.9, adult; Z79.899 Other long term (current) drug therapy
CPT/HCPCS: 36415; 80048; 80053; 80061; 81025; 83036; 83525; 84443; 85014; 85018; 85025; 85610; 85730; 86140; 86850; 86900; 86901; 88304; 88307; 88342; A4649; C9145; J0131; J0690; J1100; J1171; J1308; J1630; J2003; J2371; J2405; J2704; J2795; J3010; J7120

== ENCOUNTER → 2025-04-03 07:51 | Outpatient (BNV) | payer OTHER, SELFPAY | PROVIDERS: Admitting Provider Surgery; PCP Internal Medicine; Visit Provider Surgery | DX: E66.812 Obesity, class 2 (principal); E66.01 Morbid (severe) obesity due to excess calories; Z68.35 Body mass index [BMI] 35.0-35.9, adult; G43.909 Migraine, unspecified, not intractable, without status migrainosus; J45.909 Unspecified asthma, uncomplicated; Z98.84 Bariatric surgery status | CPT/HCPCS: 99024 ==

== ENCOUNTER 2025-04-11 09:39 | Outpatient (AMB) | payer OTHER, SELFPAY ==
--- NOTE | 2025-04-11 09:35 | MHC.WMTHER ---
Intake Intake Visit Reasons: TV PO LSG 04/03/25 Allergies latex Allergy (Verified 03/28/25 10:10) Hives [facility] Medical History BMI 35.0-35.9,adult Migraines Asthma Morbid obesity Surgical History Hx of wisdom tooth extraction History of esophagogastroduodenoscopy (EGD) S/P foot surgery, right (~2021) S/P foot surgery, left (~2021) Family History Mother No problems noted. Father Heart failure Gout Son No problems noted. Son Asthma Chronic headaches Daughter ADHD Epilepsy Social History Household Members: Children Housing: Apartment Are you a primary career professional to a significant other at home: No Do you presently have visiting nurse or other home services: No Alcohol intake: current Alcohol intake frequency: holidays/special occasions only Patient Tobacco Use Status: Never used Tobacco service: No Behavioral Health Assessment Weight Management Therapy Therapy Notes Details Subjective: Patient underwent weight loss surgery on 04/03/2025. Weight on the day of surgery was 206 lbs; as of yesterday, weight is 203 lbs. Patient describes the first three postoperative days as challenging, but reports significant improvement by day four and currently feels well. She is tolerating the liquid diet without issues. Mood is good today, and she reports improved mood and energy over the past few days. Denies hunger or preoccupation with food. Primary support is her family. Patient remains out of work until 05/01. Objective: The patient presents for a behavioral health post-operative follow-up visit. A guided emotional check-in was conducted to assess her current functioning, recovery, mood, and emotional state. Psychoeducation was provided on the emotional and psychological adjustments commonly experienced after bariatric surgery. We also focused on distinguishing between hunger and cravings or food thoughts, exploring possible reasons for these experiences, and strategies to work on her mindset. Emphasis was placed on becoming mindful of her physical and mental needs during these times while staying on track. The importance of adhering to the Weight Management Program (WMP) providers' instructions was emphasized, including the pace of drinking and following the meal and exercise plan. Tips and recommendations for long-term success were also discussed. Program resources were provided, and the patient was invited to join our Facebook group to stay informed about ongoing events and activities. Assessment/Response: Mental status: WNL Risk reported/identified: None Assessment & Plan Assessment & Plan (1) Adjustment disorder: Code(s): F43.20 - Adjustment disorder, unspecified (2) S/P laparoscopic sleeve gastrectomy: Code(s): Z98.84 - Bariatric surgery status Plan Patient is progressing well postoperatively and has requested a follow-up visit for ongoing behavioral health support. She will return in approximately four weeks for a post-op behavioral health follow-up. Next appointment:?Scheduled for 05/07/2025 at 9:00 AM via video. Telehealth Telehealth Telehealth Platform: Telephone Location of provider rendering services: practice address Location of patient: address on file Patient Identification confirmed using: Name, : Yes Telehealth method: voice only Patient verbally consented to treatment: Yes Patient verbally consented to billing insurance company: Yes Patient informed of any privacy concerns related to visit: Yes Minutes spent on Phone/Video with Pt.: 25 Coding Level of Care Code Established Pt Tele Psytx 30 mins (77819) Patient Type Established Diagnoses Adjustment disorder F43.20 S/P laparoscopic sleeve gastrectomy Z98.84 Time Spent (min) 25
--- OUTSIDE RECORDS SUMMARY | 2025-04-11 11:03 | XMS_ITS | Clinical Summary ---
Author Organization [address] [facility] Address [address] [place] [address] Phone Care Team Providers Care Group Fitness Instructor Name Role Phone Vivek Sams MD Primary Care Provider [phone] Allergies No known active allergies Medications ALBUTEROL [...] 2 (two) times a day. 5 Active amoxicillin (AMOXIL) 500 mg capsule Take 1 capsule (500 mg total) by mouth every 12 (twelve) hours. 5 Active omeprazole (PriLOSEC) [address] capsule Take 1 capsule (40 mg total) by mouth 1 (one) time each day. 5 Active thiamine 100 mg tablet Take 1 tablet (100 mg total) by mouth 1 (one) time each day. 5 Active EPINEPHrine (EPIPEN) 0.3 mg/0.3 mL injection Inject 0.3 mL (0.3 mg total) under the skin if needed. Active clotrimazole (LOTRIMIN) 1 % cream Apply 1 Application topically 2 (two) times a day. APPLY TO AFFECTED AREA 5 Active clarithromycin (BIAXIN) 500 mg tablet Take 1 tablet (500 mg total) by mouth every 12 (twelve) hours. 5 Active levocetirizine (XYZAL) 5 mg tablet Take 1 tablet (5 mg total) by mouth 1 (one) time each day. 5 Active Zepbound 5 mg/0.5 mL injection Inject 0.5 mL (5 mg total) under the skin every 7 (seven) days. 5 Active SUMAtriptan (IMITREX) 50 mg tablet TAKE 1 TABLET (50 MG TOTAL) BY MOUTH 1 (ONE) TIME EACH DAY NEEDED FOR MIGRAINE. MAY REPEAT DOSE ONCE IN 2 HOURS IF NO RELIEF. DO NOT EXCEED 2 DOSES IN 24 HOURS. 9 tablet 1 5 Active Active Problems Problem Noted Date Diagnosed Date Morbid obesity with BMI of 4 0.0-44.9, adult ([facility] V24, [facility] V28) 05/18/[address] 03/17/2024 Overview (05/18/2024): Inserted 02/2024 Flat feet, bilateral 03/20/2020 Encounters Date Type Department Care Team Description 02/15/2025 8:45 AM EDT [facility] [address] [place] [address] [place] [address] Vivek Sams MD Class 2 obesity due to excess calories without serious comorbidity with body mass index (BMI) of 39.0 to 39.9 in adult (Primary Dx) 01/10/2025 8:30 AM EDT [facility] [address] [place] [address] Vivek Sams MD Encounter for weight management (Primary Dx); Class 3 severe obesity due to excess calories without serious comorbidity with body mass index (BMI) of 40.0 to 44.9 in adult ([facility] V24, [facility] V28) from Last 3 Months Immunizations Immunization Administration Dates Next Due DTP 10/11/1995, 4,11/09/1993,1990 RXoL-OLV-DCX (Pentacel) 2mo to less than 5yo 01/09/1994,11/09/1993,1990 [...] for your loved ones. For example, child and family services specialist or elderly care for an older [...] AM EST Office Visit Internal Medicine - [facility] [address] [place] [address] Vivek Sams MD [address] [place] [address] Health Maintenance Due Date Last Done Comments [...] LAB CHEMISTRY METHOD 08/15/2024 5:57 PM EST [facility] Blood Venous blood specimen / Unknown Venipuncture / Unknown 08/15/2024 1:13 PM EST 08/15/2024 1:13 PM EST Narrative [facility] - 08/15/2024 5:57 PM [...] MD LAB BLOOD ORDERABLES Final Resu lt [facility] [address] [place] [address], [place] [phone] * Lipid panel with reflex to direct LDL (08/15/2024 1:13 PM EST) Cholesterol 149 0 - 200 mg/dL LAB CHEMISTRY METHOD 08/15/2024 5:09 PM EST [facility] Triglycerides 110 0 - 150 mg/dL LAB CHEMISTRY METHOD 08/15/2024 5:09 PM [facility] HDL 41 >=40 mg/dL LAB CHEMISTRY METHOD 08/15/2024 5:09 PM EST [facility] LDL Calculated 86 0 - 100 mg/dL LAB CHEMISTRY METHOD 08/15/2024 5:09 PM EST [facility] VLDL Cholesterol Bull 22 mg/dL LAB CHEMISTRY METHOD 08/15/2024 5:09 PM EST [facility] Non HDL Chol. (LDL+VLDL) 108 <145 mg/dL LAB CHEMISTRY METHOD 08/15/2024 5:09 PM EST [facility] Chol/HDL Ratio 3.6 0.0 - 4.4 LAB CHEMISTRY METHOD 08/15/2024 5:09 PM EST [facility] Blood Venous blood specimen / Unknown Venipuncture / Unknown 08/15/2024 1:13 PM EST 08/15/2024 1:13 PM EST Vivek Sams MD LAB BLOOD ORDERABLES Final Resu lt Performing Organization Address [facility]/ZIP Co de Phone Number [facility] [address] [place] [address], [place] [phone] * Hepatitis panel, acute with reflex to confirmation (08/15/2024 1:13 PM EST) Hepatitis B Surface Ag Negative Negative LAB CHEMISTRY METHOD 08/15/2024 6:40 PM EST [facility] Hepatitis A Antibody IgM Negative Negative LAB CHEMISTRY METHOD 08/15/2024 6:40 PM EST [facility] Hep B Core IgM Negative Negative LAB CHEMISTRY METHOD 08/15/2024 6:40 PM EST [facility] Hepatitis C Antibody Negative Negative LAB CHEMISTRY METHOD 08/15/2024 6:40 PM EST [facility] Blood Venous blood specimen / Unknown Venipuncture / Unknown 08/15/2024 1:13 PM EST 08/15/2024 1:13 PM EST Vivek Sams MD LAB BLOOD ORDERABLES Final Resu lt Performing Organization Address City/[facility]/ZIP Co de Phone Number [facility] [address] [place], [place] [address] [phone] * Cervical Cancer Screening: HPV (02/25/2024) Cervical Cancer Screening: HPV negative, abstracted Historical Provider HEALTH MAINTENANCE Final Result from Last 3 Months or Most Recently Relevant to Health Maintenance Insurance [facility] [employer] Care Teams Group Fitness Instructor Relationship Specialty Start Date End Date Vivek Sams MD [address] [place] [id number] PCP - General 08/06/22
== END 2025-04-11 09:55 | disposition home or self-care (01) ==
LOC: HO.HBST 09:39
PROVIDERS: PCP Internal Medicine; Visit Provider Counselor Mental Health
DX: F43.20 Adjustment disorder, unspecified (principal); Z98.84 Bariatric surgery status
CPT/HCPCS: 90832

== ENCOUNTER → 2025-04-11 09:39 | Outpatient (BNVA) | payer OTHER, SELFPAY | PROVIDERS: PCP Internal Medicine; Visit Provider Counselor Mental Health | DX: Z48.815 Encounter for surgical aftercare following surgery on the digestive system (principal); Z98.84 Bariatric surgery status; E66.01 Morbid (severe) obesity due to excess calories; E66.812 Obesity, class 2; Z68.33 Body mass index [BMI] 33.0-33.9, adult | CPT/HCPCS: 99212 ==

== ENCOUNTER 2025-04-11 14:31 | Outpatient (AMB) | payer OTHER, SELFPAY ==
--- NOTE | 2025-04-11 14:36 | MHC.OFFVISWM ---
VS Expanded 04/11/25 14:41 BP 120/61 Blood Pressure Location Rt brachial Blood Pressure Position Sitting Pulse 70 Pulse Source Pulse Oximeter Temp 97.9 F Temperature Source Temporal Artery Scan Pulse Oximetry 98 Oxygen Delivery Method Room Air Height 5 ft 5 in Weight 203 lb 8 oz BMI 33.9 Body Fat % 38.5 Body Fat Mass 18.4 Fat Free Mass 125.2 Visceral Fat Rating 8 Body Water % 44 Body Water Mass 89.8 Muscle Mass/Score 118.8 Basal Metabolic Rate/Score 1,738 Intake Visit Reasons: (OV) PO LSG 04/03/25 Accompanied by: Self / Same As Patient Allergies latex Allergy (Verified 03/28/25 10:10) Hives Medication List - Last Reconciled 04/11/25 by RADHA Real albuterol sulfate 90 mcg/actuation (Ventolin HFA) 2 puffs inhalation Q6H PRN budesonide-formoterol 160-4.5 mcg/actuation (Symbicort) 2 puffs inhalation BID levocetirizine 5 mg PO QPM ondansetron 4 mg PO Q12H pantoprazole 40 mg PO DAILY sucralfate 10 mL PO BID sumatriptan succinate 50 mg PO Q2-4H PRN HPI Comments Details: Pt is s/p LSG 04/03/2025. No pain. No nausea. Tolerating 3 Premier shakes, 4oz shake in 4oz UAM. Hydration is adequate - 56oz/day. [facility] Medical History BMI 35.0-35.9,adult Migraines Asthma Morbid obesity Surgical History Hx of wisdom tooth extraction History of esophagogastroduodenoscopy (EGD) S/P foot surgery, right (~2021) S/P foot surgery, left (~2021) Family History Mother No problems noted. Father Heart failure Gout Son No problems noted. Son Asthma Chronic headaches Daughter ADHD Epilepsy Social History Household Members: Children Housing: Apartment Are you a primary early breastfeeding care specialist to a significant other at home: No Do you presently have visiting nurse or other home services: No Alcohol intake: current Alcohol intake frequency: holidays/special occasions only Patient Tobacco Use Status: Never used Tobacco service: No Physical Exam Vital Signs: Last Vital Signs Temp 97.9 F 04/11/25 14:41 Pulse 70 04/11/25 14:41 BP 120/61 04/11/25 14:41 Pulse Ox 98 04/11/25 14:41 Oxygen Delivery Method Room Air 04/11/25 14:41 BMI result Body Mass Index 33.9 Const General: cooperative, comfortable and no acute distress Orientation/consciousness: patient oriented x3 GI Other: soft, nontender, nondistended, steri-strips c/d/i Neuro General: patient oriented x3 Assessment & Plan Assessment & Plan (1) S/P laparoscopic sleeve gastrectomy: Code(s): Z98.84 - Bariatric surgery status Category: Surgical (2) Obesity: Code(s): E66.9 - Obesity, unspecified Category: Medical Qualifiers: Obesity type: due to excess calories Obesity classification: adult class 2 (BMI 35 - 39.9) Serious obesity comorbidity presence: with serious comorbidity Body mass index: BMI 35.0-35.9 Qualified Code(s): E66.812 - Obesity, class 2; E66.01 - Morbid (severe) obesity due to excess calories; Z68.35 - Body mass index [BMI] 35.0-35.9, adult Plan May shower tomorrow but no bath or submersion of abdomen in water. May start exercise in 2 days.? No abdominal exercises x 6 weeks. Abdominal binder for the next 2 weeks with activity or exercise. Continue meal plan per Dr Mcneil until next f/u in 5 weeks. Reviewed pantoprazole and carafate dosing. Reminded of the pace of drinking 2 mL/min or 1oz per 15 min. Will be emailed link for post op video for review.
[2025-04-11 14:41] VITALS: BP 120/61; PULSE 70; TEMP 36.6; O2SAT 98; BMI 33.9
--- OUTSIDE RECORDS SUMMARY | 2025-04-11 18:14 | XMS_ITS | Data Portability ---
Author Organization [facility] [employer], [address] Address [address] [place] [address] Assessment No assessment recorded. Plan of Treatment [...] Template NON DOT completed SHAMA TIFFANIE GARCIA [employer] 02/28/2023 16:59:59 Imaging Results None recorded. Procedure [...] Diagnosis SNOMED-CT Code Diagnosis ICD10 Code Diagnosis IMO Codes Diagnosis Note [id number] [address] [place] [address] 10/09/2018 08:23:46 10/09/2018 09:53:29 [id number] [address] [place] [address] 01/03/2021 09:10:48 01/03/2021 10:09:21 [id number] [place] [address] [place] [address] 02/28/2023 14:43:52 02/28/2023 15:44:10 History and physical examination, occupation [id number] Z02.1 Health Concerns Section Related Observation LastModified by Organization Detai ls LastModified Time None Recorded Concern Status LastModified by Organization Details LastModified Time None Recorded Advance Directives Directive None Recorded Payers Insurance Date Sequence Insurance Name Policy Number Policy Sawant Covered Member ID Sawant Member ID Guarantor Name 02/27/2023 1 [employer] - HEALTH NET PLAN (MEDICAID HMO) ALLEGRACO Franklyn Mack [id number] Franklyn Mack 02/28/2023 [employer]PONSE Franklyn Mack OBGyn Episode No OBEpisode recorded.
== END 2025-04-11 16:07 | disposition home or self-care (01) ==
LOC: HO.HBS 14:32
PROVIDERS: PCP Internal Medicine; Visit Provider Physician Assistant Surgical
DX: E66.9 Obesity, unspecified (principal); Z98.84 Bariatric surgery status; Z90.3 Acquired absence of stomach [part of]; Z68.33 Body mass index [BMI] 33.0-33.9, adult
CPT/HCPCS: 99024

== ENCOUNTER 2025-04-25 08:26 | Outpatient (REF) | payer OTHER, SELFPAY ==
--- NOTE | ~2025-04-25 | FL_ITS ---
EXAMINATION: XR FLUOROSCOPY UPPER GI WITH AIR CLINICAL INFORMATION: Moderate to severe obesity due to excess calories. Post gastric reduction surgery. COMPARISON: None available. TECHNIQUE: Routine upper GI air contrast study was performed in upright and lying position. FINDINGS: Following oral administration of thin barium and effervescent granules and upright view there is normal propagation bolus from the oral cavity through the pharynx, esophagus into stomach without intrinsic obstruction or extrinsic compression. On placing patient supine and prone lying there is a gastric sleeve surgical changes with a small stomach. There is a small hiatal hernia with mild to moderate gastroesophageal reflux. The mucosal pattern of the esophagus, stomach, duodenal bulb and the sweep is normal. FLUOROSCOPY TIME: 1 minute 24 seconds DOSE AREA PRODUCT: 1153 uGy-m2 (microgray-meter squared) FL/FL upper GI w air IMPRESSION: Small sliding hiatal hernia moderate gastroesophageal reflux. Post gastric sleeve surgical changes with a small stomach noted. Electronically signed by: Jerry Daniels MD 04/25/2025 11:28 AM EDT
--- OUTSIDE RECORDS SUMMARY | 2025-04-25 08:57 | XMS_ITS | Clinical Summary ---
Author Organization [address] [facility] Address [address] [place] [address] Phone Care Team Providers Care Pulmonary Fellow Name Role Phone Vivek Sams MD Primary Care Provider [phone] Allergies No known active allergies Medications ALBUTEROL [...] obesity with BMI of 4 0.0-44.9, adult ([facility] V24, [facility] V28) 05/18/[address] 03/17/2024 Overview (05/18/2024): Inserted 02/2024 Flat feet, bilateral 03/20/2020 Encounters Date Type Department Care Team Description 02/15/2025 8:45 AM EDT [facility] [address] [facility] [phone] Vivek Sams MD Class 2 obesity due to excess calories without serious comorbidity with body mass index (BMI) of 39.0 to 39.9 in adult (Primary Dx) from Last 3 Months Immunizations Immunization Administration Dates Next Due DTP 10/11/1995, 4,11/09/1993,1990 [id number] (Pentacel) 2mo to less than 5yo 01/09/1994,11/09/1993,1990 [...] Comments OTHER SURGICAL HISTORY 2021 Bilateral PROCEDURE: [place] DECOMPRESSION PLANTAR DIGITAL NERVE; COMMENT: 10/03/2021 (Left); [...] for your loved ones. For example, childcare provider or elderly care for an older adult? [...] Office Visit Internal Medicine - [facility] [address] [place] [address] Vivek Sams MD [address] [place] [address] Health Maintenance Due Date Last Done Comments [...] Negative LAB CHEMISTRY METHOD 08/15/2024 5:57 PM [facility] Blood Venous blood specimen / Unknown Venipuncture / Unknown 08/15/2024 1:13 PM EST 08/15/2024 1:13 PM EST [facility] - 08/15/2024 5:57 PM EST [...] Resu lt [facility] [address] [place] [address], * Lipid panel with reflex to direct LDL (08/15/2024 1:13 PM EST) [facility] Cholesterol 149 0 - 200 mg/dL LAB [...] ORDERABLES Final Resu lt Performing Organization Address City/[facility]/ZIP Co de Phone Number [facility] [address] [place] [address], [place] [phone] * Hepatitis panel, acute with reflex to confirmation (08/15/2024 1:13 PM EST) Pathologist [facility] Hepatitis B Surface Ag Negative Negative LAB [...] Resu lt [facility] [address] [place] [address], [place] [phone] * Cervical Cancer Screening: HPV (02/25/2024) Pathologist [facility] Cervical Cancer Screening: HPV negative, abstracted Historical Provider HEALTH MAINTENANCE Final Result from Last 3 Months or Most Recently Relevant to Health Maintenance Insurance [facility] PL[facility] Care Teams Pulmonary Fellow Relationship Specialty Start Date End Date Vivek Sams MD [address] [place] [id number] PCP - General 08/06/22
== END 2025-04-25 08:27 | disposition home or self-care (01) ==
LOC: HO.XRAY 08:26
PROVIDERS: PCP Internal Medicine; Visit Provider Surgery
DX: J45.909 Unspecified asthma, uncomplicated (principal); E66.01 Morbid (severe) obesity due to excess calories
CPT/HCPCS: 74246

== ENCOUNTER → 2025-04-25 08:28 | Outpatient (BNV) | payer OTHER, SELFPAY | PROVIDERS: PCP Internal Medicine; Visit Provider Radiology Diagnostic Radiology | DX: K21.9 Gastro-esophageal reflux disease without esophagitis (principal); K44.9 Diaphragmatic hernia without obstruction or gangrene | CPT/HCPCS: 74246 ==

== ENCOUNTER 2025-05-07 09:08 | Outpatient (AMB) | payer OTHER, SELFPAY ==
--- NOTE | 2025-05-07 09:05 | A.OFFWM_ITS ---
Intake Intake Visit Reasons: VIDEO PO LSG 04/03/25 Allergies latex Allergy (Verified 03/28/25 10:10) Hives [facility] Medical History (Updated 04/19/25 @ 00:02 by Background Daemon) BMI 35.0-35.9,adult Migraines Asthma Morbid obesity Surgical History (Updated 04/19/25 @ 00:02 by Background Daemon) Hx of wisdom tooth extraction History of esophagogastroduodenoscopy (EGD) S/P foot surgery, right (~2021) S/P foot surgery, left (~2021) Family History Mother No problems noted. Father Heart failure Gout Son No problems noted. Son Asthma Chronic headaches Daughter ADHD Epilepsy Social History Household Members: Children Housing: Apartment Are you a primary home care manager to a significant other at home: No Do you presently have visiting nurse or other home services: No Alcohol intake: current Alcohol intake frequency: holidays/special occasions only Patient Tobacco Use Status: Never used Tobacco service: No Behavioral Health Assessment Weight Management Therapy Therapy Notes Details Subjective: Patient is status post bariatric surgery on 04/03/25. Current dietary plan includes 3 protein shakes and 1 protein bar daily, with additional clear liquids, totaling approximately 60 oz fluid intake per day. Most recent weight on 05/01: 191 lbs. Patient is self-monitoring and sending weight and measurements weekly on Tuesdays. Continues to exercise, using a stationary bike to burn 300 calories per session and walking on the track 3 days per week. Has returned to work on light duty and reports improved mood since resuming work. Occasionally experiences food-related thoughts, particularly when preparing meals for her children, but is managing these urges. Objective: Patient attended post-operative behavioral health follow-up via Telehealth. Appeared alert, oriented, and engaged throughout the session. No acute distress or safety concerns observed. Supportive listening provided; discussed current functioning, progress with post-op lifestyle changes, and ongoing challenges. Psychoeducation delivered regarding post-operative expectations, nutrition, and emotional adjustment. Interventions included: * Problem-solving strategies for managing food-related thoughts and triggers, especially when cooking for family. * Behavioral activation techniques to reinforce healthy routines and support habit formation for long-term success. * Development and review of a personalized coping plan for managing cravings and emotional eating. * Motivational interviewing to enhance adherence to dietary and activity recommendations. * Reinforcement of self-monitoring behaviors (weight, measurements, activity). Assessment/Response: * Mental status: WNL * Risk reported/identified: None Assessment & Plan Assessment & Plan (1) Adjustment disorder: Code(s): F43.20 - Adjustment disorder, unspecified (2) S/P laparoscopic sleeve gastrectomy: Code(s): Z98.84 - Bariatric surgery status Plan Patient declined further behavioral health sessions at this time, reporting she is doing well and feels confident in her current coping strategies and progress. Patient is aware that behavioral health services remain available and can be accessed at any time should new challenges arise or additional support be needed. Advised to continue current dietary and exercise regimen as tolerated, maintain self-monitoring of weight and measurements, and encourage ongoing use of coping strategies and behavioral techniques as discussed. Telehealth Telehealth Telehealth Platform: [facility] Location of provider rendering services: other (Home office. [place], [place]) Location of patient: address on file Patient Identification confirmed using: Name, : Yes Telehealth method: video Patient verbally consented to treatment: Yes Patient verbally consented to billing insurance company: Yes Patient informed of any privacy concerns related to visit: Yes Minutes spent on Phone/Video with Pt.: 45 [place] [address] Tele Psytx 45 mins Patient Type Established Diagnoses Adjustment disorder F43.20 S/P laparoscopic sleeve gastrectomy Z98.84 Time Spent (min) 45
--- OUTSIDE RECORDS SUMMARY | 2025-05-07 09:49 | XMS_ITS | Clinical Summary ---
Author Organization [address] [facility] Address [address] [place] [address] Phone Care Team Providers Care Button Puncher Name Role Phone Vivek Sams MD Primary Care Provider [phone] Allergies No known active allergies Medications ALBUTEROL [...] obesity with BMI of 4 0.0-44.9, adult ([facility] V24, [facility] V28) 05/18/[address] 03/17/2024 Overview (05/18/2024): Inserted 02/2024 Flat feet, bilateral 03/20/2020 Encounters Date Type Department Care Team Description 02/15/2025 8:45 AM EDT [facility] [address] [facility] [place] [address] Vivek Sams MD Class 2 obesity due to excess calories without serious comorbidity with body mass index (BMI) of 39.0 to 39.9 in adult (Primary Dx) from Last 3 Months Immunizations Immunization Administration Dates Next Due DTP 10/11/1995, 4,11/09/1993,1990 [id number] (Pentacel) 2mo to less than 5yo 01/09/1994,11/09/1993,1990 [...] Comments OTHER SURGICAL HISTORY 2021 Bilateral PROCEDURE: [place] DECOMPRESSION PLANTAR DIGITAL NERVE; COMMENT: 10/03/2021 (Left); [...] for your loved ones. 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 [...] EST Office Visit Internal Medicine - [facility] [address] [place] [address] Vivek Sams MD [address] [place] [address] Health Maintenance Due Date Last Done Comments [...] Name Priority Date/Time Associated Diagnosis Comments EXTERNAL CT REPORT 04/25/2025 EXTERNAL CLINICAL LAB 03/09/2025 EXTERNAL ULTRASOUND REPORT [...] Relevant to Health Maintenance Results * External CT Report (04/25/2025) Anatomical Region Laterality Modality Computed Tomogra phy us Provider [facility] PROCEDURES Final Result * External clinical lab (03/09/2025) us Provider [facility] BLOOD ORDERABLES Fin al Result * External Ultrasound Report (03/06/2025) Anatomical Region Laterality Modality Ultrasound Provider [facility] US PROCEDURES Final Result * HIV 1,2 antibody, p24 antigen with reflex to differentiation (08/15/2024 1:13 PM EST) Pathologist [facility] HIV Combo AB/AG Negative Negative LAB CHEMISTRY METHOD 08/15/2024 5:57 PM EST [facility] Blood Venous blood specimen / Unknown Venipuncture / Unknown 08/15/2024 1:13 PM EST 08/15/2024 1:13 PM EST Narrative [facility] - 08/15/2024 5:57 PM EST This [...] MD LAB BLOOD ORDERABLES Final Resu lt [facility] [address] [place] [address], * Lipid panel with reflex to direct LDL (08/15/2024 1:13 PM EST) [facility] Cholesterol 149 0 - 200 mg/dL LAB CHEMISTRY METHOD 08/15/2024 5:09 PM [facility] Triglycerides 110 0 - 150 mg/dL LAB CHEMISTRY METHOD 08/15/2024 5:09 PM [facility] HDL 41 >=40 mg/dL LAB CHEMISTRY METHOD 08/15/2024 5:09 PM [facility] LDL Calculated 86 0 - 100 mg/dL LAB CHEMISTRY METHOD 08/15/2024 5:09 PM [facility] VLDL Cholesterol Bull 22 mg/dL LAB CHEMISTRY METHOD 08/15/2024 5:09 PM [facility] Non HDL Chol. (LDL+VLDL) 108 <145 mg/dL LAB CHEMISTRY METHOD 08/15/2024 5:09 PM EST [facility] Chol/HDL Ratio 3.6 0.0 - 4.4 LAB CHEMISTRY METHOD 08/15/2024 5:09 PM EST [facility] Blood Venous blood specimen / Unknown Venipuncture / Unknown 08/15/2024 1:13 PM EST 08/15/2024 1:13 PM EST Vivek Sams MD LAB BLOOD ORDERABLES Final Resu lt [facility] [address] [place] [address], [place] [phone] * Hepatitis panel, acute with reflex to confirmation (08/15/2024 1:13 PM EST) Pathologist [facility] Hepatitis B Surface Ag Negative Negative LAB CHEMISTRY METHOD 08/15/2024 6:40 PM EST [facility] Hepatitis A Antibody IgM Negative Negative LAB CHEMISTRY METHOD 08/15/2024 6:40 PM EST [facility] Hep B Core IgM Negative Negative LAB CHEMISTRY METHOD 08/15/2024 6:40 PM EST [facility] Hepatitis C Antibody Negative Negative LAB CHEMISTRY METHOD 08/15/2024 6:40 PM EST [facility] Blood Venous blood specimen / Unknown Venipuncture / Unknown 08/15/2024 1:13 PM EST 08/15/2024 1:13 PM EST Vivek Sams MD LAB BLOOD ORDERABLES Final Resu lt [facility] [address] [place] [address], [place] [phone] * Cervical Cancer Screening: HPV (02/25/2024) Pathologist [facility] Cervical Cancer Screening: HPV negative, abstracted us Historical Provider HEALTH MAINTENANCE Final Result from Last 3 Months or Most Recently Relevant to Health Maintenance Insurance [facility] PLAN Care Teams Button Puncher Relationship Specialty Start Date End Date Vivek Sams MD [address] [facility] [place] [address] PCP - General 08/06/22
== END 2025-05-07 10:16 | disposition home or self-care (01) ==
LOC: HO.HBST 09:08
PROVIDERS: PCP Internal Medicine; Visit Provider Counselor Mental Health
DX: F43.20 Adjustment disorder, unspecified (principal); Z98.84 Bariatric surgery status
CPT/HCPCS: 90834